=== PATIENT | male | born 1985 | race African-American/Black ===

== ENCOUNTER 2018-05-03 11:36 | Emergency (ER) | payer OTHER ==
[2018-05-03 11:52] VITALS: BP 132/84; PULSE 84; RESP 18; TEMP 98.1
--- NOTE | 2018-05-03 12:25 | ED ---
Head Injury HPI - General Chief complaint: Head Injury Stated complaint: HEAD INJURY FROM FALLING DOWN STAIRS Time Seen by Provider: 05/03/18 12:14 Source: patient, RN notes reviewed Mode of arrival: ambulatory Limitations: no limitations - History of Present Illness Initial comments: This is a 32-year-old male who presents to the emergency department with chief complaint of head injury. Patient states that this morning he slipped on laundry and fell down 3 sets of stairs, however he was able to catch himself. He states that he hit his forehead on the wall and is now experiencing posterior head pain. Patient denies loss of consciousness. He states that he did feel dizzy and her low back nausea following the episode. Denies any weakness or vision changes. Denies repeated episodes of vomiting. Patient is not on any blood thinners. Denies severe headache. - Related Data Previous Rx's Medication Instructions Recorded Aspirin 81 mg PO DAILY #30 chewable 11/20/14 Atorvastatin [Lipitor] 80 mg PO HS #30 tab 11/20/14 Carvedilol [Coreg] 3.125 mg PO AC-BID #60 tab 11/20/14 Clopidogrel [Plavix] 75 mg PO DAILY #30 tab 11/20/14 Lisinopril [Zestril] 2.5 mg PO BID #60 tab 11/20/14 Allergies/Adverse reactions: Allergies Allergy/AdvReac Type Severity Reaction Status Date / Time No Known Allergies Allergy Verified 05/03/18 11:49 Review of Systems ROS Statement: Those systems with pertinent positive or pertinent negative responses have been documented in the HPI. ROS Other: All systems not noted in ROS Statement are negative. Past Medical History Past Medical History: Diabetes Mellitus History of Any Multi-Drug Resistant Organisms: None Reported Past Surgical History: No Surgical Hx Reported Past Anesthesia/Blood Transfusion Reactions: No Reported Reaction Past Psychological History: No Psychological Hx Reported Smoking Status: Current some day smoker Past Alcohol Use History: Rare Past Drug Use History: None Reported - Past Family History Father Family Medical History: Coronary Artery Disease (CAD), Hypertension General Exam - General Exam Comments Initial Comments: General: Awake and alert, well-developed; in no apparent distress. HEENT: Head atraumatic, normocephalic. No scalp hematomas. Pupils are equal, round and reactive to light. Extraocular movements intact. Oropharynx moist without erythema or exudate. Neck: Supple. Normal ROM. No tenderness. Cardiovascular: Regular rate and rhythm. No murmurs, rubs or gallops. Chest symmetrical. Respiratory: Lungs clear to auscultation bilaterally. No wheezes, rales or rhonchi. Normal respiratory effort with no use of accessory muscles. Musculoskeletal: Normal ROM, no tenderness, strength 5/5 bilateral upper and lower extremities. Ambulating normally. Skin: Culp, warm and dry without rashes or lesions. Neurological: Alert and oriented x3. CN II-XII grossly intact. Speech is fluent and answers are appropriate. No focal neuro deficits. Romberg negative. Psychiatric: Normal mood and affect. No overt signs of depression or anxiety noted. Limitations: no limitations Course Vital Signs 05/03/18 11:49 Temperature 98.1 F Pulse Rate 84 Respiratory 18 Rate Blood Pressure 132/84 O2 Sat by Pulse 99 Oximetry Medical Decision Making - Medical Decision Making This is a 32-year-old male who presents to the emergency department with chief complaint of head injury. Patient reports slipping down 3 stairs earlier today and catching himself but hitting his forehead on the wall. He complains of posterior head pain. No severe headache, loss of consciousness, vomiting. No hematomas. Patient is neurologically intact with no focal neuro deficits. He denies blood thinner use. Discussed obtaining a computed tomography scan for further evaluation, however patient refuses at this time. Vital signs are stable and he is in no acute distress. Return parameters were discussed with patient. He is in agreement with plan and voices understanding. He will be discharged home at this time. All questions answered. Disposition Clinical Impression: Closed head injury Disposition: HOME SELF-CARE Condition: Good Instructions: Head Injury (ED), Concussion (ED) Additional Instructions: Please return to the emergency department if you experience any loss of consciousness, repeated episodes of vomiting. Please follow up with primary care provider within 1-2 days. Return to emergency department if symptoms should worsen or any concerns arise. Is patient prescribed a controlled substance at d/c from ED?: No Referrals: None,Stated [Primary Care Provider] - 1-2 days Time of Disposition: 12:24
== END 2018-05-03 12:30 | disposition home or self-care (01) ==
LOC: EC 11:36
DX: S09.90XA Unspecified injury of head, initial encounter (principal); F17.200 Nicotine dependence, unspecified, uncomplicated; Z53.29 Procedure and treatment not carried out because of patient's decision for other reasons; W10.9XXA Fall (on) (from) unspecified stairs and steps, initial encounter
CPT/HCPCS: 99283

== ENCOUNTER 2020-09-18 12:04 | Emergency (ER) | payer OTHER ==
[2020-09-18 12:17] VITALS: BP 162/94; PULSE 89; RESP 18; TEMP 98.7
[2020-09-18] MEDS ORDERED: CEPHALEXIN 500MG STARTER PACK 4 CAP BTL PO STA (12:53)
--- NOTE | 2020-09-18 12:56 | ED ---
General Adult HPI - General Chief complaint: Skin/Abscess/Foreign Body Stated complaint: Wound on big toe, Diabetic Time Seen by Provider: 09/18/20 12:46 Source: patient, RN notes reviewed, old records reviewed Mode of arrival: ambulatory Limitations: no limitations - History of Present Illness Initial comments: 35-year-old male history of diabetes peripheral neuropathy presenting for an ulcer to the right great toe which is been present for the past 2 weeks. This is previously had some drainage to it. There was some surrounding erythema. He states that the erythema has improved and drainage has dried up but the ulcer remains. Patient does not follow regularly with his primary care. He denies fever. He denies pain. He denies swelling or erythema into the foot, ankle or leg.. He states overall that the blister ulceration appears improved. - Related Data Previous Rx's Medication Instructions Recorded Aspirin 81 mg PO DAILY #30 chewable 11/20/14 Atorvastatin [Lipitor] 80 mg PO HS #30 tab 11/20/14 Clopidogrel [Plavix] 75 mg PO DAILY #30 tab 11/20/14 carvediloL [Coreg] 3.125 mg PO AC-BID #60 tab 11/20/14 lisinopriL [Zestril] 2.5 mg PO BID #60 tab 11/20/14 Cephalexin [Keflex] 500 mg PO Q6HR 10 Days #40 cap 09/18/20 Allergies Allergy/AdvReac Type Severity Reaction Status Date / Time No Known Allergies Allergy Verified 09/18/20 12:17 Review of Systems ROS Statement: Those systems with pertinent positive or pertinent negative responses have been documented in the HPI. ROS Other: All systems not noted in ROS Statement are negative. Past Medical History Past Medical History: Diabetes Mellitus, Myocardial Infarction ([place]) Additional Past Medical History / Comment(s): neuropathy History of Any Multi-Drug Resistant Organisms: None Reported Past Surgical History: No Surgical Hx Reported Additional Past Surgical History / Comment(s): laser eye surgery Past Anesthesia/Blood Transfusion Reactions: No Reported Reaction Past Psychological History: No Psychological Hx Reported Smoking Status: Never smoker Past Alcohol Use History: Rare Past Drug Use History: Marijuana - Past Family History Father Family Medical History: Coronary Artery Disease (CAD), Hypertension General Exam Limitations: no limitations General appearance: alert, in no apparent distress Head exam: Present: atraumatic, normocephalic Eye exam: Present: normal appearance, PERRL ENT exam: Present: normal exam Neck exam: Present: normal inspection. Absent: tenderness, meningismus Respiratory exam: Present: normal lung sounds bilaterally. Absent: respiratory distress, wheezes Cardiovascular Exam: Present: regular rate, normal rhythm GI/Abdominal exam: Present: soft. Absent: distended, tenderness, guarding Extremities exam: Present: other (Patient has a dry 2 cm round ulceration on the medial aspect of the right great toe. 2+ DP pulse, no surrounding erythema. No purulent drainage.). Absent: pedal edema, joint swelling Neurological exam: Present: alert, oriented X3, CN II-XII intact. Absent: motor sensory deficit Psychiatric exam: Present: normal affect, normal mood Skin exam: Present: warm, dry, intact. Absent: cyanosis, diaphoretic Course Vital Signs 09/18/20 12:15 Temperature 98.7 F Pulse Rate 89 Respiratory 18 Rate Blood Pressure 162/94 O2 Sat by Pulse 100 Oximetry Medical Decision Making - Medical Decision Making Patient will require outpatient wound management, he is given referral to the wound clinic and vascular surgery. His overall well-appearing nontoxic, the ulceration is dry, there is no swelling in the foot, no surrounding erythema, no purulent drainage. He has 2+ DP pulse good cap refill. Started on antibiotics and given outpatient referral. Disposition Clinical Impression: Diabetic ulcer of right great toe Disposition: HOME SELF-CARE Condition: Fair Instructions (If sedation given, give patient instructions): Diabetic Foot Ulcers (ED) Additional Instructions: Please contact your primary care physician regarding wound care. These return the emergency department with worsening or changing symptoms. Prescriptions: Cephalexin [Keflex] 500 mg PO Q6HR 10 Days #40 cap Is patient prescribed a controlled substance at d/c from ED?: No Referrals: Marlen Hatch MD [Primary Care Provider] - 1-2 days [facility] [NON-STAFF] - 1-2 days Manfred Waite MD [STAFF PHYSICIAN] - 1-2 days Time of Disposition: 12:54
== END 2020-09-18 13:18 | disposition home or self-care (01) ==
LOC: EC 12:04
DX: E11.621 Type 2 diabetes mellitus with foot ulcer (principal); L97.519 Non-pressure chronic ulcer of other part of right foot with unspecified severity; I25.2 Old myocardial infarction
CPT/HCPCS: 99283

== ENCOUNTER → 2020-09-24 | Outpatient (CLI) | payer OTHER ==
--- NOTE | 2020-09-24 11:00 | XR ---
EXAMINATION TYPE: XR foot complete RT DATE OF EXAM: 09/24/2020 CLINICAL HISTORY: Wound on great toe for one week. History of diabetes. TECHNIQUE: Frontal, lateral, and oblique images of the right foot are obtained. COMPARISON: None FINDINGS: There is no acute fracture/dislocation evident in the right foot. Mild to moderate narrowi ng first metatarsophalangeal joint. Flexion and varus positioning distal third through fifth toes. No suspicious bony destruction or abnormal periosteal reaction with particular attention to the first t oe. [id number] soft tissue swelling over the first toe, overlying bandage material and lucency medial distal aspect near the first proximal phalanx corresponds to soft tissue wound. IMPRESSION: As above.
[2020-09-24 11:15] LABS: Basophils # (A) 0.1 k/uL (0-0.2); Basophils % (A) 1 %; Eosinophils # (A) 0.3 k/uL (0-0.7); Eosinophils % (A) 3 %; HCT 39.6 % (39.0-53.0); HGB 13.3 gm/dL (13.0-17.5); Lymphocytes # (A) 2.7 k/uL (1.0-4.8); Lymphocytes % (A) 29 %; MCH 29.2 pg (25.0-35.0); MCHC 33.6 g/dL (31.0-37.0); MCV 86.9 fL (80.0-100.0); Mean Platelet Volume 6.8; Monocytes # (A) 0.5 k/uL (0-1.0); Monocytes % (A) 5 %; Neutrophils # (A) 5.4 k/uL (1.3-7.7); Neutrophils % (A) 60 %; Platelet Count 343 k/uL (150-450); RBC 4.56 m/uL (4.30-5.90); RDW 12.6 % (11.5-15.5); WBC 9.1 k/uL (3.8-10.6)
[2020-09-24 15:17] LABS: Erythrocyte Sedimentation Rate 48 mm/hr (0-15)
[2020-09-24 16:14] LABS: ALT 15 U/L (10-49); AST 17 U/L (14-35); Albumin/Globulin Ratio 1.43 (1.60-3.17); Alkaline Phosphatase 130 U/L (41-126); BUN/Creat Ratio 13.33 Ratio (12.00-20.00); C Reactive Protein <0.4 mg/dL (0.0-0.8); Calcium 9.6 mg/dL (8.7-10.3); Carbon Dioxide 30.5 mmol/L (21.6-31.8); Chloride 97 mmol/L (96-109); Globulin 2.8 g/dL (1.6-3.3); Glucose 318 mg/dL (70-110); Non-African American GFR(CKD) 76.8 (60.0-200.0); Potassium 4.4 mmol/L (3.5-5.5); Sodium 134 mmol/L (135-145); Total Bilirubin 0.4 mg/dL (0.2-1.2); Total Protein 6.8 g/dL (6.2-8.2)
[2020-09-24 16:52] LABS: Hemoglobin A1C 12.4 % (4.0-6.0)
== END | disposition home or self-care (01) ==
LOC: LABWHC1 09:37
PROVIDERS: ATTEND Family Medicine
DX: M25.871 Other specified joint disorders, right ankle and foot (principal); M21.271 Flexion deformity, right ankle and toes; M79.89 Other specified soft tissue disorders; E11.621 Type 2 diabetes mellitus with foot ulcer; L97.518 Non-pressure chronic ulcer of other part of right foot with other specified severity; E11.65 Type 2 diabetes mellitus with hyperglycemia; I25.10 Atherosclerotic heart disease of native coronary artery without angina pectoris; I10 Essential (primary) hypertension
CPT/HCPCS: 36415; 80053; 83036; 84134; 85025; 85652; 86140

== ENCOUNTER → 2020-10-01 | Outpatient (CLI) | payer OTHER ==
--- NOTE | 2020-10-01 15:58 | US ---
EXAMINATION TYPE: US venous doppler duplex LE RT DATE OF EXAM: 10/01/2020 3:26 PM COMPARISON: NONE CLINICAL HISTORY: E11.621 TYPE 2 DIABETES WITH FOOT ULCER. LOWER EXTREMITY VENOUS INSUFFICIENCY CLINICAL HISTORY: Loose body R knee M23.41, M23.91 Internal derangement. SIDE PERFORMED: Right 1) Color flow is present and patency is documented in the following vessels. No DVT or SVT is noted . Common Femoral Vein Deep Femoral Vein Femoral Vein Popliteal Vein Proximal Calf Veins Greater Saph Vein Upper Small Saph Vein 2) There is venous reflux noted at the following venous levels: No venous reflux
--- NOTE | 2020-10-07 10:48 | P.ARTDOP ---
Arterial Doppler LOWER EXTREMITY ARTERIAL DOPPLER: DATE OF SERVICE: 10/01/2020 Reason for study: Right great toe ulcer. Doppler waveforms: Multiphasic throughout on the right with excellent toe waveforms.. Multiphasic on the left femoral and popliteal and atypical below with adequate toe waveforms Pulse volume recording: Normal configurations. Pressure gradients: Mild gradient to the left ankle and foot. Ankle-brachial indices: Greater than 1 on the right and 0.92 on the left. Toe brachial indices: 0.9 on the right, 0.39 on the left Impression: Normal right side. The left suggests moderate infrapopliteal disease. Clinical correlation recommended. Does not correspond to symptoms.
== END | disposition home or self-care (01) ==
LOC: RADUSWWP 13:59
PROVIDERS: ATTEND Family Medicine
DX: E11.621 Type 2 diabetes mellitus with foot ulcer (principal); E11.65 Type 2 diabetes mellitus with hyperglycemia; L97.518 Non-pressure chronic ulcer of other part of right foot with other specified severity; I25.10 Atherosclerotic heart disease of native coronary artery without angina pectoris; I10 Essential (primary) hypertension
CPT/HCPCS: 93923

== ENCOUNTER → 2020-12-16 | Outpatient (CLI) | payer OTHER ==
[2020-12-16 14:33] LABS: Basophils # (A) 0.1 k/uL (0-0.2); Basophils % (A) 1 %; Eosinophils # (A) 0.3 k/uL (0-0.7); Eosinophils % (A) 3 %; HCT 38.4 % (39.0-53.0); HGB 13.9 gm/dL (13.0-17.5); Lymphocytes # (A) 2.9 k/uL (1.0-4.8); Lymphocytes % (A) 31 %; MCH 30.6 pg (25.0-35.0); MCHC 36.1 g/dL (31.0-37.0); MCV 84.7 fL (80.0-100.0); Mean Platelet Volume 6.7; Monocytes # (A) 0.5 k/uL (0-1.0); Monocytes % (A) 5 %; Neutrophils # (A) 5.3 k/uL (1.3-7.7); Neutrophils % (A) 58 %; Platelet Count 323 k/uL (150-450); RBC 4.53 m/uL (4.30-5.90); RDW 12.9 % (11.5-15.5); WBC 9.1 k/uL (3.8-10.6)
[2020-12-16 14:34] LABS: Potassium 4.7 mmol/L (3.5-5.1)
== END | disposition home or self-care (01) ==
LOC: LABPAT 13:43
PROVIDERS: ATTEND Surgery
DX: Z01.818 Encounter for other preprocedural examination (principal); I96 Gangrene, not elsewhere classified
CPT/HCPCS: 36415; 80051; 82565; 84520; 85025

== ENCOUNTER 2021-01-15 11:28 | Day surgery (SDC) | payer OTHER ==
[2021-01-12 09:51] VITALS: BMI 32.3
[~2021-01-15 11:28] MED LIST: ALPRAZolam 0.25 MG TAB PO PRN; SODIUM CHLORIDE 0.9% 1,000 ML in EMPTY BAG 1 BAG IV ONE
[2021-01-15] MEDS ORDERED: ASPIRIN 325 MG TAB ONE (11:41)
[2021-01-15 12:04] VITALS: RESP 16; TEMP 98.7
[2021-01-15 12:09] LABS: Glucose,Whole Blood 229 mg/dL (75-99)
[2021-01-15] MEDS ORDERED: INSULIN ASPART (NovoLOG) 100 UNIT/ML VIAL SQ SCH (12:30)
[2021-01-15 12:52] LABS: Calcium 9.4 mg/dL (8.4-10.2); Potassium 4.5 mmol/L (3.5-5.1)
[2021-01-15] MEDS: MIDAZOLAM 2 MG/2 ML VIAL IVP ONE ×2 (13:10→13:27)
[2021-01-15] MEDS ORDERED: fentaNYL (PF) 50 MCG/ML 2 ML AMP IVP ONE (13:10)
[2021-01-15] MEDS ORDERED: LIDOCAINE 1% INJ 10MG/ML (20 ML MDV) SQ ONE (13:11)
[2021-01-15] MEDS ORDERED: IOPAMIDOL-250 100ML BTL INTRAARTER ONE (13:38)
[2021-01-15] MEDS ORDERED: LACTATED RINGERS 1,000 ML IV SCH (14:15)
--- NOTE | 2021-01-15 14:25 | P.OP ---
Date of Procedure: 01/15/21 Preoperative Diagnosis: #1: Ischemic changes left great toe. #2: Diabetic vascular disease. Postoperative Diagnosis: #1: Ischemia great toe. #2: Diabetic vascular disease with long segment occlusion of the posterior tibial artery area. #3: Proximal high-grade stenosis left anterior tibial artery with occlusion distally. #4: High-grade stenosis distal tibial peroneal trunk. #5: Occlusion right posterior tibial artery. Procedure(s) Performed: #1: Ultrasound-guided cannulation right common femoral artery. #2: Abdominal aortogram with femoral/popliteal/tibial runoffs. #3: Cannulation of the femoral artery from the contralateral approach. #4: Selective left femoral/popliteal/tibial angiography. Implants: None. Anesthesia: regional (2 mg of Versed and 50 g of fentanyl for moderate conscious sedation purposes.) Surgeon: Jeff Caal Estimated Blood Loss (ml): 10 Urine output (ml): 0 Pathology: none sent Condition: stable Disposition: no change Indications for Procedure: Patient is a 35-year-old male with a greater than 15 year history of diabetes mellitus who presented with ischemic changes of the left great toe. Physical examination revealed femoral popliteal pulses to be intact on the left all the pedal pulses are absent. Patient is now offered angiography for further delineation of vascular anatomy with goal of eventual revascularization. Description of Procedure: Patient was brought to the cardiac cath lab manager. Both groins are still prepped and draped in usual manner. Patient did receive 2 mg of Versed and 50 g of fentanyl for moderate conscious sedation purposes. Utilizing ultrasound the right femoral artery was identified. Tissues overlying this area were localized with 1% Xylocaine. Through this anesthetized area and with the aid of ultrasound a multipurpose needle was utilized candidate the artery. Once cannulated a Softip guidewire is advanced into the artery. The needle was withdrawn and a 5-Gu[place]alan sheath was placed. Pigtail catheter and guidewire were advanced into the abdominal aorta through the sheath. The guidewire was withdrawn and the catheter positioned at the L1 1 L2 interspace. Angiography was performed. Once adequate films were obtained the catheter is pulled down the level aortic bifurcation and ileal, femoral, popliteal and tibial angiography was performed. To obtain better imaging of the tibial vessels on the left is decided to perform a selective catheterization. The catheter was brought down to the aortic bifurcation and a guidewire was advanced into the external iliac artery. The catheter was exchanged for a 5- [place]alan angled glide catheter which was eventually advanced into the superficial femoral artery. Femoral, popliteal and tibial angiography was performed utilizing hand injection technique. Once adequate films were obtained the catheter and sheath were withdrawn and pressure was held at the puncture site until all evidence of bleeding ceased. Patient tolerated the procedure well. Total fluoroscopy time 3.7 minutes and total contrast volume was 94 mL of Isovue 250. Findings: Abdominal aorta demonstrates no significant disease. Single renal arteries are identified bilaterally and are widely patent. Lumbar arteries are normally patent. Both the iliac systems bilaterally were unremarkable. Right arterial segments to be unremarkable. Right popliteal angiography demonstrates the popliteal artery to be widely patent without evidence of significant disease. Right tibial angiography demonstrates the proximal portion of the anterior tibial artery as well as the tibial peroneal trunk and the proximal portion of the peroneal artery to be unremarkable. The posterior tibial arteries occluded at its origin. Contrast volume oh further description of the tibial vessels is possible. Left femoral angiography demonstrates the common femoral, femoral and profundus femoris segments to be unremarkable. Left popliteal angiography demonstrates a normally patent artery. Left tibial angiography demonstrates the anterior tibial artery to be stenotic over a 1.5 cm distance approximately 2 cm from its origin. At the distal tibial level the artery occludes. Left tibial peroneal trunk is unremarkable. Left peroneal artery demonstrates a near total focal occlusion approximately 3 cm from its origin and distally is unremarkable. It fills collaterals to the posterior tibial and dorsalis pedis and fills the digital vessels. Left posterior tibial artery is occluded shortly after it's takeoff and fills via collaterals just proximal to the ankle mortise.
[2021-01-15] MEDS ORDERED: hydrALAZINE HCL 20 MG/ML 1 ML VIAL IVP STA (14:56)
[2021-01-15 17:56] VITALS: BP 168/92
--- NOTE | 2021-01-15 17:59 | IR ---
EXAMINATION TYPE: IR angio abdominal w runoff DATE OF EXAM: 01/15/2021 CLINICAL HISTORY: Left flank pain TECHNIQUE: Fluoroscopy. COMPARISON: None. FINDINGS: Fluoroscopic guidance was provided during procedure for performing physician. A total of 3.7 minutes of fluoroscopic time was utilized during the procedure and 211 spot images was acquired. IMPRESSION: As Above.
[2021-01-15 18:49] VITALS: PULSE 88
== END 2021-01-15 18:53 | disposition home or self-care (01) ==
LOC: CATHCVL 11:28
PROVIDERS: ATTEND Surgery
DX: E11.52 Type 2 diabetes mellitus with diabetic peripheral angiopathy with gangrene (principal); I96 Gangrene, not elsewhere classified; E11.621 Type 2 diabetes mellitus with foot ulcer; L97.529 Non-pressure chronic ulcer of other part of left foot with unspecified severity; I10 Essential (primary) hypertension; Z20.822 Contact with and (suspected) exposure to COVID-19; Z79.84 Long term (current) use of oral hypoglycemic drugs; Z98.890 Other specified postprocedural states; I25.2 Old myocardial infarction; F17.200 Nicotine dependence, unspecified, uncomplicated
CPT/HCPCS: 36247; 75625; 75716; 76937; 80048; 87635; C1769 ×2; C1894; J2250; J0360; J2001; J3010; Q9966

== ENCOUNTER → 2021-01-27 | Outpatient (CLI) | payer OTHER ==
--- NOTE | 2021-01-27 16:35 | XR ---
EXAMINATION TYPE: XR foot complete LT DATE OF EXAM: 01/27/2021 CLINICAL HISTORY: Infection in the left great toe TECHNIQUE: Frontal, lateral, and oblique images of the left foot are obtained. COMPARISON: None FINDINGS: There is bony destruction of the distal portion of the distal phalanx of the first digit (g reat toe) suggestive of a osteomyelitis. There is surrounding soft tissue prominence. No evidence of other acute fracture or dislocation. The tarsals, metatarsals and phalanges are in alignment. Prematu re atherosclerotic vascular calcification. IMPRESSION: 1. Bony destruction of the distal portion of the distal phalanx of the first digit (great toe) sugges tive of osteomyelitis. Overlying soft tissue swelling.
[2021-01-27 19:26] LABS: Basophils # (A) 0.05 X 10*3/uL (0.00-0.10); Basophils % (A) 0.5 %; Eosinophils % (A) 2.1 %; HCT 37.9 % (39.6-50.0); HGB 12.7 g/dL (13.0-17.0); Lymphocytes # (A) 2.57 X 10*3/uL (0.90-5.00); Lymphocytes % (A) 27.1 %; MCH 28.9 pg (27.0-32.0); MCHC 33.5 g/dL (32.0-37.0); MCV 86.1 fL (80.0-97.0); Mean Platelet Volume 9.5 fL (9.5-12.2); Monocytes # (A) 0.56 X 10*3/uL (0.20-1.00); Monocytes % (A) 5.9 %; Neutrophils # (A) 6.06 X 10*3/uL (1.80-7.70); Neutrophils % (A) 64.1 %; Platelet Count 360 X 10*3/uL (140-440); RDW 12.4 % (11.5-14.5); WBC 9.47 X 10*3/uL (4.50-10.00)
[2021-01-27 20:39] LABS: Erythrocyte Sedimentation Rate 35 mm/Hr (0-15)
[2021-01-27 22:14] LABS: Hemoglobin A1C 8.4 % (4.0-6.0)
[2021-01-28 00:22] LABS: ALT 13 U/L (10-49); AST 19 U/L (14-35); African American GFR (CKD) 58.4 (60.0-200.0); Albumin/Globulin Ratio 1.46 (1.60-3.17); Alkaline Phosphatase 115 U/L (41-126); BUN/Creat Ratio 14.12 Ratio (12.00-20.00); C Reactive Protein <0.4 mg/dL (0.0-0.8); Calcium 9.2 mg/dL (8.7-10.3); Carbon Dioxide 26.3 mmol/L (21.6-31.8); Chloride 102 mmol/L (96-109); Globulin 2.8 g/dL (1.6-3.3); Glucose 269 mg/dL (70-110); Non-African American GFR(CKD) 50.4 (60.0-200.0); Potassium 4.8 mmol/L (3.5-5.5); Sodium 137 mmol/L (135-145); Total Bilirubin 0.4 mg/dL (0.3-1.2); Total Protein 6.9 g/dL (6.2-8.2)
== END | disposition home or self-care (01) ==
LOC: LABWHC1 11:34
PROVIDERS: ATTEND Family Medicine
DX: E11.65 Type 2 diabetes mellitus with hyperglycemia (principal); E11.621 Type 2 diabetes mellitus with foot ulcer; L97.523 Non-pressure chronic ulcer of other part of left foot with necrosis of muscle; M21.42 Flat foot [pes planus] (acquired), left foot; M21.6X9 Other acquired deformities of unspecified foot; E11.40 Type 2 diabetes mellitus with diabetic neuropathy, unspecified; M76.829 Posterior tibial tendinitis, unspecified leg; I25.10 Atherosclerotic heart disease of native coronary artery without angina pectoris; I73.9 Peripheral vascular disease, unspecified; I10 Essential (primary) hypertension; L97.512 Non-pressure chronic ulcer of other part of right foot with fat layer exposed
CPT/HCPCS: 36415; 80053; 83036; 85025; 85652; 86140

== ENCOUNTER 2021-02-25 07:12 | Inpatient (IN) | payer OTHER ==
[2021-02-25] MEDS ORDERED: SODIUM CHLORIDE 0.9% 1,000 ML in EMPTY BAG 1 BAG IV ONE (07:17)
[2021-02-25] MEDS ORDERED: HEPARIN SODIUM,PORCINE 10,000 UNIT in SODIUM CHLORIDE 0.9% 1,000 ML IRRIGATION PRN (07:17)
[2021-02-25] MEDS ORDERED: ASPIRIN 325 MG TAB PO PRN (07:17)
[2021-02-25] MEDS ORDERED: ZOLPIDEM 5 MG TAB PO PRN (07:17)
[2021-02-25] MEDS ORDERED: HEPARIN SODIUM,PORCINE 2,500 UNIT in SODIUM CHLORIDE 0.9% 250 ML IRRIGATION PRN (07:17)
[2021-02-25] MEDS ORDERED: ALPRAZolam 0.25 MG TAB PO PRN (07:17)
[2021-02-25] MEDS ORDERED: SODIUM CHLORIDE 0.9% 1,000 ML IV ONE (07:45)
[2021-02-25 07:51] LABS: Glucose,Whole Blood 188 mg/dL (75-99)
[2021-02-25] MEDS ORDERED: LIDOCAINE 1% INJ 10MG/ML (20 ML MDV) ONE (10:15)
[2021-02-25] MEDS ORDERED: IV FLUID CONTINUATION 700 ML IV ONE (10:20)
[2021-02-25] MEDS ORDERED: fentaNYL (PF) 50 MCG/ML 2 ML AMP ONE (10:46)
[2021-02-25] MEDS: fentaNYL (PF) 50 MCG/ML 2 ML AMP IV ONE ×2 (10:50→11:58)
[2021-02-25] MEDS ORDERED: MIDAZOLAM 2 MG/2 ML VIAL IV ONE (10:50)
[2021-02-25] MEDS ORDERED: LIDOCAINE 1% INJ 10MG/ML (20 ML MDV) SQ ONE (10:52)
[2021-02-25] MEDS: HEPARIN SODIUM 1,000 UN/ML (10ML VL) IV ONE ×2 (11:49→12:49)
[2021-02-25] MEDS ORDERED: ALTEPLASE 2 MG VIAL (CATHFLO) IV STA (12:26)
[2021-02-25] MEDS: ALTEPLASE 10 MG in SODIUM CHLORIDE 0.9% 100 ML IA ONE ×2 (13:19→23:35)
[2021-02-25] MEDS: HEPARIN SOD,PORK IN 0.45% NACL 25,000 UNIT in 0.45% NACL 1 250ML.BAG IV SCH (13:19)
[2021-02-25] MEDS ORDERED: IOPAMIDOL-250 100ML BTL INTRAARTER ONE (13:20)
[2021-02-25 13:48] LABS: Glucose,Whole Blood 125 mg/dL (75-99)
--- NOTE | 2021-02-25 14:00 | IR ---
EXAMINATION TYPE: IR sailboat captain tibioperoneal branchs DATE OF EXAM: 02/25/2021 COMPARISON: NONE HISTORY: Fluoroscopy time. Fluoroscopy was provided to the referring clinician.
[2021-02-25] MEDS ORDERED: IV FLUID CONTINUATION 1,000 ML IV ONE (15:25)
[2021-02-25] MEDS ORDERED: IOPAMIDOL-250 50ML BTL INTRAARTER ONE (15:47)
[2021-02-25 16:20] LABS: Glucose,Whole Blood 131 mg/dL (75-99)
--- NOTE | 2021-02-25 16:29 | IR ---
Fluoroscopy HISTORY: thrombo lysis 0.3 minutes fluoroscopy time supplied to the referring clinician. 40 intraoperative C-arm images doc ument the procedure. See dictated report from vascular surgery.
[2021-02-25] MEDS: SODIUM CHLORIDE 0.9% 1,000 ML IV SCH (16:53)
--- NOTE | 2021-02-25 17:10 | P.OP ---
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 Procedure(s) Performed: #1: Ultrasound-guided cannulation right common femoral artery. #2: Selective left lower extremity angiography. #3: Atherectomy and balloon angioplasty left anterior tibial artery. #4: Placement of thrombolytic catheter left tibioperoneal trunk/popliteal artery with initiation of TPA thrombolysis. Implants: None. Anesthesia: local (With moderate conscious sedation utilizing fentanyl and Versed with a total conscious sedation time of 1 hour 17 minutes) Surgeon: Jeff Caal Estimated Blood Loss (ml): 10 Pathology: none sent Condition: stable Disposition: ICU Indications for Procedure: Patient is a 35-year-old male with long-standing history of diabetes mellitus who had presented with a gangrenous changes of the left great toe. Physical examination revealed femoral popliteal pulses be intact on the left lumbar DP an d PT pulses are absent. Patient had undergone diagnostic angiography with the diagnosis of severe tibial artery occlusive disease. Because of his gangrenous changes in the tibial artery occlusive disease was felt appropriate the patient be offered percutaneous intervention with atherectomy. The procedure, risk and benefits were discussed and patient wished to proceed. Description of Procedure: Patient brought to the special procedure suite. Both groins were sterilely prepped and draped in usual manner. Patient did receive 50 g of fentanyl and 2 mg of Versed for moderate conscious sedation purposes and did receive additional fentanyl through the time of the case. 1% Xylocaine was utilized for local anesthesia tissues overlying the right common femoral artery. Utilizing ultrasound a multipurpose needle was utilized cannulate the artery. Once cannulated Softip guidewire was advanced into the artery. The needle was withdrawn and a 6-German sheath was placed. Pigtail catheter and guidewire were then advanced and utilized to select the left common iliac artery. The guidewire was advanced down the iliac into the superficial femoral artery. The catheter was exchanged for an angled glide catheter. Eventually a stiff wire was advanced through the catheter. The catheter and 6- German sheath were exchanged for a Up & Over 6-German catheter. A catheter was then advanced into the popliteal artery. Popliteal and tibial angiography was performed. This demonstrated the aforementioned severe tibial artery occlusive disease. Guidewire and catheter combination were utilized to select the anterior tibial artery. Eventually a 0.014 guidewire was advanced down the anterior tibial artery onto the dorsum of the foot. A 1.25 mm diamondback bur was advanced over the guidewire. The patient was systemically heparinized with 5000 units of heparin. Atherectomy was then performed of the anterior tibial artery. This was followed by balloon dilation of the mid and distal portion of the anterior tibial artery with a 2 mm balloon and in the proximal portion with a 3 mm balloon. Completion angiogram demonstrated what appeared to be spasmodic change of the anterior tibial artery. 2 separate doses of 100 g of nitroglycerin was instilled intra-arterially to break the spasm. Additionally thrombotic changes of the tibial peroneal trunk was noted. 4 mg of TPA was instilled into the tibial peroneal trunk and eventually a infusion catheter was left in the popliteal artery and proximal portion of the tibial peroneal trunk with the intent of into new TPA infusion of 1 mg TPA per hour and 500 units of heparin per hour and repeat imaging later in the afternoon. The The sheath was secured to the skin with suture proper dressings were applied. Patient tolerated the procedure well. Total contrast volume 100 mg of Isovue 250. Total conscious sedation time 1 hour 17 minutes.
--- NOTE | 2021-02-25 17:15 | P.OP ---
Date of Procedure: 02/25/21 Preoperative Diagnosis: Thrombosis left anterior tibial artery and tibial peroneal trunk. Status post atherectomy left anterior tibial artery. Postoperative Diagnosis: Same plus significant but incomplete thrombo-lysis. Procedure(s) Performed: Angiogram via existing catheter. Implants: None. Anesthesia: none Surgeon: Jeff Caal Estimated Blood Loss (ml): 0 Urine output (ml): 0 Pathology: none sent Condition: stable Disposition: ICU Indications for Procedure: Patient earlier today underwent a atherectomy of the anterior tibial artery with alone dilation. Patient did experience thrombosis of the tibial peroneal harsh nk/peroneal artery and of the anterior tibial artery. TPA infusion catheter had been placed in the patient had undergone a few hours of TPA thrombo-lysis. Patient is brought back to the special suite for repeat imaging. Patient did indicate that his foot felt significantly better at this time even compared to preprocedure. Description of Procedure: Patient brought to the special procedure suite. Right groin sterilely prepped and draped in usual manner. 2 separate injections of 5 mL of contrast through the infusion catheter was performed. This demonstrated significant improvement in the thrombotic burden although some thrombus yet remained. As such the TPA catheter was left in place with the intent of continue TPA thrombo-lysis over night with repeat imaging on February 26. Patient tolerated the procedure well and was returned to the ICU in satisfactory and stable condition. Total fluoroscopy time: 30 seconds. Total contrast volume utilized: 10 ML's of Isovue 250. Total conscious sedation time: 0.0 minutes.
[2021-02-25 21:30] LABS: Glucose,Whole Blood 141 mg/dL (75-99)
[2021-02-25] MEDS: INSULIN ASPART (NovoLOG) 100 UNIT/ML VIAL SQ SCH (21:54)
[2021-02-26 07:58] LABS: Glucose,Whole Blood 146 mg/dL (75-99)
[2021-02-26] MEDS: INSULIN ASPART (NovoLOG) 100 UNIT/ML VIAL SQ SCH ×4 (08:27→20:47)
[2021-02-26] MEDS ORDERED: ALTEPLASE 10 MG in SODIUM CHLORIDE 0.9% 100 ML IA ONE (08:44)
[2021-02-26 09:16] LABS: Basophils # (A) 0.1 k/uL (0-0.2); Basophils % (A) 1 %; Eosinophils # (A) 0.3 k/uL (0-0.7); Eosinophils % (A) 3 %; HCT 38.5 % (39.0-53.0); HGB 12.9 gm/dL (13.0-17.5); Lymphocytes # (A) 1.8 k/uL (1.0-4.8); Lymphocytes % (A) 19 %; MCH 29.2 pg (25.0-35.0); MCHC 33.4 g/dL (31.0-37.0); MCV 87.5 fL (80.0-100.0); Mean Platelet Volume 6.7; Monocytes # (A) 0.5 k/uL (0-1.0); Monocytes % (A) 5 %; Neutrophils # (A) 6.7 k/uL (1.3-7.7); Neutrophils % (A) 71 %; Platelet Count 291 k/uL (150-450); RDW 13.6 % (11.5-15.5); WBC 9.5 k/uL (3.8-10.6)
[2021-02-26 09:24] LABS: African American GFR (CKD) >90 (>60 ml/min/1.73 sqM); Anion Gap 3 mmol/L; Blood Urea Nitrogen 12 mg/dL (9-20); Calcium 8.8 mg/dL (8.4-10.2); Carbon Dioxide 32 mmol/L (22-30); Chloride 102 mmol/L (98-107); Glucose 148 mg/dL (74-99); Non-African American GFR(CKD) 79 (>60 ml/min/1.73 sqM); Potassium 4.5 mmol/L (3.5-5.1); Sodium 137 mmol/L (137-145)
--- NOTE | 2021-02-26 09:34 | P.CNPUL ---
History of Present Illness Consult date: 02/26/21 History of present illness: This is a 35-year-old male patient who underwent a atherectomy of the anterior tibial artery. The patient was having thrombosis of the left anterior tibial artery and tibial peroneal trunk on the left. The patient is known to have diabetes mellitus, coronary artery disease and hypertension. The patient was having also ischemic changes and left great toe and this was attributed to a significant tibial artery occlusion. The patient underwent atherectomy. The patient also had a TPA infusion catheter placed which is currently running at this point in time in the intensive care unit. This is running at 1 mg an hour. He is also on heparin. The catheter is present in his right groin and there is no hematoma formation or any signs of bleeding. The plan is to take him back to the vascular lab to undergo another angiogram today. No signs of any bleeding. Hemoglobin currently is at 12.9. He is hemodynamically stable. Pulse patient has improved in the left lower extremity. The patient has dorsalis pedis pulses obtained by Doppler signal. The feet are warm bilaterally. The toe wound is noninfected at this point in time. Review of Systems Constitutional: Reports as per HPI Eyes: bilateral as per HPI, bilateral blurred vision, denies bulging eye, denies decreased vision, denies diplopia, denies discharge, denies dry eye, denies irritation, denies itching, denies pain, denies photophobia, denies loss of peripheral vision, denies loss of vision, denies tunnel vision/blind spots Ears: deny: decreased hearing, ear discharge, earache, tinnitus Ears, nose, mouth and throat: Reports as per HPI Breasts: absent: as per HPI, gynecomastia Cardiovascular: Reports claudication Respiratory: Reports as per HPI Gastrointestinal: Reports as per HPI Genitourinary: Reports as per HPI Musculoskeletal: Reports as per HPI Musculoskeletal: absent: ankle pain, ankle stiffness, ankle swelling Integumentary: Reports wounds Neurological: Reports as per HPI (Motor neuropathy related to diabetes mellitus in the lower extremities), Reports numbness, Reports paresthesias, Reports weakness Psychiatric: Reports as per HPI Endocrine: Reports as per HPI Hematologic/Lymphatic: Reports as per HPI Allergic/Immunologic: Reports as per HPI Past Medical History Past Medical History: Coronary Artery Disease (CAD), Diabetes Mellitus, Hyperlipidemia, Hypertension, Myocardial Infarction (DC), Skin Disorder, Vascular Disorder Additional Past Medical History / Comment(s): neuropathy melvin legs, eczema, wound left great toe(on antibiotics currently)-goes to [facility] wound center, poor circulation melvin legs, eczema, Last Myocardial Infarction Date:: 2014 History of Any Multi-Drug Resistant Organisms: MRSA Date of last positivie culture/infection: 01/21/21 MDRO Source:: toe Past Surgical History: Heart Catheterization Additional Past Surgical History / Comment(s): laser eye surgery x 2, oral surgery, angiogram Past Anesthesia/Blood Transfusion Reactions: Motion Sickness Smoking Status: Never smoker - Past Family History Mother Family Medical History: No Reported History Father Family Medical History: Coronary Artery Disease (CAD), Hypertension Medications and Allergies Home Medications Medication Instructions Recorded Confirmed Type Clopidogrel [Plavix] 75 mg PO DAILY #30 tab 11/20/14 02/25/21 Rx Glimepiride [Amaryl] 1 mg PO DAILY 01/12/21 02/25/21 History metFORMIN HCL 1,000 mg PO BID 01/12/21 02/25/21 History Aspirin 81 mg PO DAILY #0 chewable 01/15/21 02/25/21 Rx Atorvastatin [Lipitor] 5 mg PO HS 01/15/21 02/25/21 History Losartan Potassium 50 mg PO DAILY 02/25/21 02/25/21 History Sulfamethox-Tmp 400-80Mg [Bactrim 400 mg PO BID 02/25/21 02/25/21 History SS 400-80 mg] Allergies Allergy/AdvReac Type Severity Reaction Status Date / Time No Known Allergies Allergy Verified 02/24/21 09:24 Physical Exam Vitals: Vital Signs Temp Pulse Resp BP Pulse Ox 02/26/21 09:00 98.6 F 87 13 155/100 100 02/26/21 08:30 85 14 155/100 99 02/26/21 08:00 85 0 L 179/112 97 02/26/21 07:30 76 7 L 172/114 98 02/26/21 07:00 78 14 164/111 98 02/26/21 06:30 84 16 164/111 98 02/26/21 06:00 78 12 147/95 98 02/26/21 05:30 96 26 H 147/95 99 02/26/21 05:00 76 0 L 168/103 98 02/26/21 04:30 82 8 L 168/103 97 06/18/21 04:00 97.4 F L 82 14 160/104 98 02/26/21 03:30 80 12 160/104 98 02/26/21 03:00 82 0 L 159/121 99 02/26/21 02:30 79 6 L 159/121 99 02/26/21 02:00 98 11 L 158/101 99 02/26/21 01:30 82 11 L 158/101 98 02/26/21 01:00 79 6 L 159/87 99 02/26/21 00:30 80 14 159/87 99 02/26/21 00:00 98.4 F 85 14 148/84 98 02/25/21 23:30 80 10 L 148/84 100 02/25/21 23:00 80 17 153/94 99 02/25/21 22:30 75 6 L 153/94 98 02/25/21 22:09 72 5 L 143/97 99 02/25/21 22:00 85 15 153/94 99 02/25/21 21:30 75 13 98 02/25/21 21:00 76 14 98 02/25/21 20:30 79 14 97 02/25/21 20:00 98.1 F 79 13 98 02/25/21 19:30 78 12 96 02/25/21 19:00 73 18 143/97 95 02/25/21 18:30 81 16 97 02/25/21 18:00 86 16 146/95 98 02/25/21 17:30 83 16 150/88 99 02/25/21 17:00 75 26 H 131/86 99 02/25/21 16:30 76 16 149/100 98 02/25/21 15:00 79 16 144/83 98 02/25/21 14:30 80 14 138/97 99 02/25/21 14:10 98.1 F 73 16 138/97 97 Intake and Output 02/25/21 02/26/21 02/26/21 22:59 06:59 14:59 Intake Total 825 280 Output Total 750 1000 Balance 75 -720 Intake: IV 180 180 ns 80 180 Intake, IV Titration 155 Amount Alteplase 10 mg In Sodium 50 Chloride 0.9% 100 ml @ 1 MG/HR 10 mls/hr IA .Q10H ONE Rx#:[id number] Heparin Sod,Pork in 0.45% 25 NaCl 25,000 unit In 0.45 % NaCl 1 250ml.bag @ 5 mls/hr IV .Q24H MANUEL Rx#: [id number] Sodium Chloride 0.9% 1, 80 000 ml @ 20 mls/hr IV . Q24H MANUEL Rx#:[id number] Oral 490 100 Output: Urine 750 1000 Other: Voiding Method Urinal Urinal # Voids 0 0 Gen. appearance, comfortable likely distress Head exam was generally normal. There was no scleral icterus or corneal arcus. Mucous membranes were moist. Neck was supple and without jugular venous distension, thyromegaly, or carotid bruits. Carotids were easily palpable bilaterally. There was no adenopathy. Lungs were clear to auscultation and percussion, and with normal diaphragmatic excursion. No wheezes or rales were noted. Cardiac exam revealed the PMI to be normally situated and sized. The rhythm was regular and no extrasystoles were noted during several minutes of auscultation. The first and second heart sounds were normal and physiologic splitting of the second heart sound was noted. There were no murmurs, rubs, clicks, or gallops. Abdominal exam revealed normal bowel sounds. The abdomen was soft, non-tender, and without masses, organomegaly, or appreciable enlargement of the abdominal aorta. Extremities revealed diminished pulses in lower extremities bilaterally. Doppler significant be obtained in the left foot involving dorsalis pedis and posterior tibialis. The left great toe was inspected. There is no active drainage. There is no necrosis or gangrenous formation. The rest of the wounds are essentially healed lower extremities bilaterally. There is evidence of peripheral neuropathy and evidence of chronic trauma in the feet bilaterally with some Charcot joint development. No open wounds. No active drainage at this point in time. No synovitis. Neurologically, the patient is awake and alert and the patient does not have any focal neurological deficit. Cranial nerves are essentially intact. Results - Laboratory Findings CBC and BMP: 02/26/21 08:47 02/26/21 08:47 ABG WBC 9.5 k/uL (3.8-10.6) 02/26/21 08:47 RBC 4.40 m/uL (4.30-5.90) 02/26/21 08:47 Hgb 12.9 gm/dL (13.0-17.5) L 02/26/21 08:47 Hct 38.5 % (39.0-53.0) L 02/26/21 08:47 MCV 87.5 fL (80.0-100.0) 02/26/21 08:47 MCH 29.2 pg (25.0-35.0) 02/26/21 08:47 MCHC 33.4 g/dL (31.0-37.0) 02/26/21 08:47 RDW 13.6 % (11.5-15.5) 02/26/21 08:47 Plt Count 291 k/uL (150-450) 02/26/21 08:47 MPV 6.7 02/26/21 08:47 Neutrophils % 71 % 02/26/21 08:47 Lymphocytes % 19 % 02/26/21 08:47 Monocytes % 5 % 02/26/21 08:47 Eosinophils % 3 % 02/26/21 08:47 Basophils % 1 % 02/26/21 08:47 Neutrophils # 6.7 k/uL (1.3-7.7) 02/26/21 08:47 Lymphocytes # 1.8 k/uL (1.0-4.8) 02/26/21 08:47 Monocytes # 0.5 k/uL (0-1.0) 02/26/21 08:47 Eosinophils # 0.3 k/uL (0-0.7) 02/26/21 08:47 Basophils # 0.1 k/uL (0-0.2) 02/26/21 08:47 Fibrinogen 408 mg/dL (200-500) 02/26/21 05:24 POC Glucose (mg/dL) 146 mg/dL (75-99) H 02/26/21 07:57 POC [email or web address] 02/26/21 07:57 Coronavirus (PCR) Not Detected (Not Detectd) 02/25/21 07:40 Abnormal lab findings: Abnormal Labs 02/25/21 02/25/21 02/25/21 07:42 13:46 16:19 Hgb Hct POC Glucose (mg/dL) 188 H 125 H 131 H 02/25/21 02/26/21 02/26/21 21:29 07:57 08:47 Hgb 12.9 L Hct 38.5 L POC Glucose (mg/dL) 141 H 146 H Assessment and Plan Plan: 1 severe peripheral vascular disease with thrombosis of the left anterior tibial artery and tibioperoneal trunk on the left with secondary chronic vascular c hanges in lower extremities and the nonhealing left toe ulcer. Patient is post atherectomy and currently the patient is on TPA infusion. Adequate pulses in the lower extremities obtained by Doppler signal, patient is postop day #1 2 chronic wounds of lower extremity active wound is the one in his left great toe no drainage or purulent material this point in time. 3 diabetes mellitus 4 hypertension 5 hyperlipidemia 6 history of marijuana smoking 7 peripheral neuropathy involving lower extremities bilaterally. 8 CAD with previous history of myocardial infarction , moderate triple-vessel coronary artery disease based on a cardiac catheterization that was done back in 2014. 9 diabetic retinopathy post laser eye surgery. 10 diabetic wound also involving the toe on the left, and the patient was treated for an MRSA wound infection and the patient was completing a course of Bactrim that was given to her in back in January 2021. Based on the x-rays, there could have been also a component of osteomyelitis involving the left great toe. Plan In is to continue to TPA and heparin for now Watch for any signs of bleeding Monitor hemoglobin Repeat angiogram Resume Bactrim for chronic MRSA left toe infection/osteomyelitis Monitor the blood sugar and resume oral hypoglycemic medication in addition to sliding scalecoverage Monitor hemodynamics We'll continue to follow. Keep the patient ICU for now. We'll coordinate with vascular surgery.
[2021-02-26] MEDS: SULFAMETHOX-TMP 800-160MG 1 EACH TAB PO SCH ×2 (10:08→21:07)
--- NOTE | 2021-02-26 10:21 | CDI ---
Documentation Clarification Form Date: 02/26/2021 09:30:02 AM From: Conchita Torres RN, CCDS Admit Date: 02/25/2021 01:30:00 PM Patient Name: Zac Hook Visit Number: [id number] Discharge Date: ATTENTION: The Clinical Documentation Specialists (CDI) and [facility] Coding Staff appreciate your assistance in clarifying documentation. Please respond to the clarification below the line at the bottom and electronically sign. The CDI & [facility] Coding staff will review the response and follow-up if needed. Please note: Queries are made part of the Legal Health Record. If you have any questions, please contact the author of this message via ITS. Dr. Jeff Caal 02/25 Thrombosis left anterior tibial artery and tibial trunk is documented in the operative note and patient is post artherectomy left anterior tibial artery on 02/25/21. Additional clarification is requested regarding the relationship, if any, that exists between the diagnosis and the procedure. 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 Post-Operative Diagnosis: Same, plus thrombosis left tibial peroneal trunk. Procedure performed: Ultrasound-guided cannulation right common femoral artery. Selective left lower extremity angiography. A Atherectomy and balloon angioplasty left anterior tibial artery. Placement of thrombolytic catheter left tibioperoneal trunk/popliteal artery with initiation of TPA thrombolysis History/Risk Factors: Diabetes Mellitus, Diabetic tibial artery occlusive disease, Hypertension, Coronary artery disease Clinical Indicators: 35-year-old male with diabetic tibial artery occlusive disease left lower extremity with resulting gangrene left great toe, present on 02/25 for elective Atherectomy and balloon angioplasty left anterior tibial artery. Per operative note, completion angiogram demonstrate what appeared to be spasmodic change of the anterior tibial artery. Additionally thrombotic changes of the tibial peroneal trunk was noted.. Treatment: Nitroglycerin 100 ug IV x2 Infusion catheter TPA infusion 1 mg per hr. Heparin 500 units per hour Monitor hemoglobin, watch for any signs of bleeding What relationship, if any, exists between the diagnosis of Thrombosis left anterior tibial artery and tibial peroneal trunk and the Atherectomy left anterior tibial artery. [ ] Thrombosis is a complication of surgical procedure, unexpected [ ] Thrombosis is an expected outcome of the surgical procedure [ ] Thrombosis is related to patients co-morbid condition(s) of severe diabetic tibia artery occlusive disease left lower extremity & not a complication of the procedure [ ] Other please specify ____ [ ] Unable to determine (Template Last Revised: November 2020) MTDD
--- NOTE | 2021-02-26 11:15 | P.PN ---
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 Presented yesterday for an elective arthrectomy and balloon angioplasty of the left anterior tibial artery for diabetic tibial artery occlusive disease of the left lower extremity and gangrene left great toe, however the patient demonstrated thrombolic changes at the tibial artery and peroneal trunk subsequently TPA was started. He states he has pain down the left lower extremity however it is improved prior to his procedure. He denies any acute changes through the night. He has a catheter in the right groin that is clean dry and intact with TPA infusing. Labs are pending. Last fibrinogen was 408. He denies any shortness of breath, chest pain, or abdominal pain. No signs of bleeding. Objective - Vital Signs Vital signs: Vital Signs Temp 97.4 F L 02/26/21 04:00 Pulse 78 02/26/21 07:00 Resp 14 02/26/21 07:00 BP 164/111 02/26/21 07:00 Pulse Ox 98 02/26/21 07:00 Intake & Output 02/25/21 02/26/21 02/26/21 18:59 06:59 18:59 Intake Total 1069 625 Output Total 750 1400 Balance 319 -775 Weight 100.1 kg Intake: IV 694 240 ns 40 240 Intake, IV Titration 135 35 Amount Alteplase 10 mg In Sodium 50 10 Chloride 0.9% 100 ml @ 1 MG/HR 10 mls/hr IA .Q10H ONE Rx#:[id number] Heparin Sod,Pork in 0.45% 25 5 NaCl 25,000 unit In 0.45 % NaCl 1 250ml.bag @ 5 mls/hr IV .Q24H MANUEL Rx#: [id number] Sodium Chloride 0.9% 1, 60 20 000 ml @ 20 mls/hr IV . Q24H MANUEL Rx#:[id number] Oral 240 350 Output: Urine 750 1400 Other: Voiding Method Urinal Urinal # Voids 0 - Exam General appearance: The patient is alert, oriented, appears in no acute distress. HET: Head is normocephalic and atraumatic. Neck: Supple without lymphadenopathy. Trachea midline. Heart: S1 S2. Regular rate and rhythm. Lungs: Clear to auscultation. Abdomen: Soft, nontender, nondistended. Extremities: Normal skin color and turgor. No edema bilaterally. Right groin with catheter in place with no signs of bleeding, palpable right dorsalis pedis, warm to the touch. Left lower extremity warm to the touch, positive femoral, popliteal, posterior tibialis and dorsalis pedis Doppler signal. Good capillary refill. Great toe with dressing in place clean dry and intact. He does have some tenderness along the left lower calf with palpation. Neurological: No focal deficits. Alert and oriented 3. - Labs CBC & Chem 7: 02/26/21 08:47 02/26/21 08:47 Labs: Abnormal Lab Results - Last 24 Hours (Table) 02/25/21 02/25/21 02/25/21 Range/Units 13:46 16:19 21:29 POC Glucose (mg/dL) 125 H 131 H 141 H (75-99) mg/dL 02/26/21 Range/Units 07:57 POC Glucose (mg/dL) 146 H (75-99) mg/dL Assessment and Plan Assessment: 1. Postop day #1 atherectomy left anterior tibial artery 2. Status post angiography of the left lower extremity with placement of thrombolytic catheter and initiation of TPA thrombolysis 3. 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 Diabetes mellitus Plan: 1. Keep nothing by mouth 2. Patient is scheduled for repeat angiography today for reevaluation the left lower extremity 3. CBC, BMP ordered The impression and plan of care has been dictated as directed. Dr. Mccann I performed a history and examination of this patient, discussed the same with the dictator. I agree with the dictator's note ,documented as a scribe. Any additional findings or plans will be noted.
[2021-02-26 11:18] LABS: Glucose,Whole Blood 176 mg/dL (75-99)
[2021-02-26] MEDS ORDERED: HEPARIN SODIUM 1,000 UN/ML (10ML VL) ONE (13:04)
[2021-02-26] MEDS ORDERED: fentaNYL (PF) 50 MCG/ML 2 ML AMP IV ONE (13:14)
[2021-02-26] MEDS ORDERED: MIDAZOLAM 2 MG/2 ML VIAL IV ONE (13:14)
[2021-02-26] MEDS ORDERED: fentaNYL (PF) 50 MCG/ML 2 ML AMP ONE (13:15)
[2021-02-26] MEDS ORDERED: LIDOCAINE 1% INJ 10MG/ML (20 ML MDV) ONE (13:19)
[2021-02-26] MEDS ORDERED: IV FLUID CONTINUATION 1,000 ML IV ONE (13:20)
[2021-02-26] MEDS: fentaNYL (PF) 50 MCG/ML 2 ML AMP IV ONE (13:25)
[2021-02-26] MEDS ORDERED: LIDOCAINE 1% INJ 10MG/ML (20 ML MDV) SQ ONE (13:25)
--- NOTE | 2021-02-26 13:55 | P.OP ---
Date of Procedure: 02/26/21 Description of Procedure: Preoperative diagnosis: Anterior tibial and tibial peroneal trunk thrombosis Postoperative diagnosis: Same, resolution of anterior tibial and TP trunk thrombosis, posterior tibial occlusion with reconstitution at the ankle Procedure: [#1 angiogram via existing catheter #2 percutaneous closure device deployment #3 moderate conscious sedation x19 minutes #4 right iliofemoral angiogram] Surgeon: Yadira Mccann D.O. EBL: [Less than 10 mL] IV fluids: [See records Urine output: [Not measured] Drains: [None] Complications: [None immediately apparent] Condition: [Stable to recovery] Operative indication and findings: [Patient is a 35-year-old male with diabetes and previously identified tibial artery occlusive disease along with ischemic changes to his great toe. Given these findings he had been recommended to undergo Atherectomy at the conclusion of the procedure there was evidence of distant with thrombosis of the anterior tibial and tibial peroneal trunk. At that time a thrombolytic catheter was placed and then recheck was performed initially. There was still some levels of thrombosis and he was felt to fit from further thrombolysis. He comes back today for further imaging] Procedure in detail: Patient was taken to the special suite and placed in supine position. The right groin and previously placed catheter were prepped and draped in usual sterile fashion. A preprocedure timeout was performed, all parties are in agreement. The guidewire was placed and the thrombotic catheter was removed. An angiogram was performed through the existing sheath revealing a patent P1, P2 and P3 proximal artery. The anterior tibial artery is patent at its takeoff and through the mid leg. The tibial peroneal trunk and peroneal arteries are patent. There is flush occlusion of the posterior tibial artery. At the level of the ankle there is some areas of haziness the anterior tibial artery with no obvious flow limitation. The peroneal artery continues down to the ankle and reconstitutes the posterior tibial at this level. Given these findings it was felt the procedure was complete. Wire and catheter were removed. A right iliofemoral angiogram was performed to evaluate for cutaneous closure. It found to be adequate. A short 6-Iraqi sheath was then placed and a vascular closure device was deployed. Hemostasis found to be adequate. A dressing was placed for the patient's transferred back to his room in stable condition having tolerated the procedure well.
--- NOTE | 2021-02-26 14:01 | IR ---
EXAMINATION TYPE: IR angio extremity LT DATE OF EXAM: 02/26/2021 COMPARISON: NONE HISTORY: Fluoroscopy time. Fluoroscopy was provided to the referring clinician.
[2021-02-26 18:15] LABS: Glucose,Whole Blood 163 mg/dL (75-99)
[2021-02-26] MEDS: HEPARIN SOD,PORK IN 0.45% NACL 25,000 UNIT in 0.45% NACL 1 250ML.BAG IV SCH (18:15)
[2021-02-26 18:31] VITALS: PULSE 85
[2021-02-26 18:40] VITALS: RESP 16
[2021-02-26 20:06] LABS: Glucose,Whole Blood 195 mg/dL (75-99)
[2021-02-26] MEDS: SODIUM CHLORIDE 0.9% 1,000 ML IV SCH (20:48)
[2021-02-27 05:50] LABS: Glucose,Whole Blood 165 mg/dL (75-99)
[2021-02-27] MEDS: INSULIN ASPART (NovoLOG) 100 UNIT/ML VIAL SQ SCH (06:10)
[2021-02-27 08:24] VITALS: BP 142/87; TEMP 98.1
[2021-02-27] MEDS: SULFAMETHOX-TMP 800-160MG 1 EACH TAB PO SCH (09:00)
--- NOTE | 2021-02-27 09:26 | P.DS ---
Providers Date of admission: 02/25/21 13:30 Attending physician: Jeff Caal DO Consults: 02/25/21 16:25 Consult Physician Routine Consulting Provider: Torres Chaudhari Consult Reason/Comments: icu management Do you want consulting provider notified?: Already Contacted Primary care physician: [facility] Course: Pt was admitted for angiogram adn subsequently required thrombolysis. After conclusion of the procedures he was feeling better than upon admission. His groin is soft without hematoma. He is found to be in satisfactory condition for discharge. Plan - Discharge Summary New Discharge Prescriptions: Continue Clopidogrel [Plavix] 75 mg PO DAILY #30 tab No Action metFORMIN HCL 1,000 mg PO BID Glimepiride [Amaryl] 1 mg PO DAILY Atorvastatin [Lipitor] 5 mg PO HS Aspirin 81 mg PO DAILY #0 chewable Sulfamethox-Tmp 400-80Mg [Bactrim SS 400-80 mg] 400 mg PO BID Losartan Potassium 50 mg PO DAILY Discharge Medication List Glimepiride [Amaryl] 1 mg PO DAILY 01/12/21 [History] metFORMIN HCL 1,000 mg PO BID 01/12/21 [History] Aspirin 81 mg PO DAILY #0 chewable 01/15/21 [Rx] Atorvastatin [Lipitor] 5 mg PO HS 01/15/21 [History] Losartan Potassium 50 mg PO DAILY 02/25/21 [History] Sulfamethox-Tmp 400-80Mg [Bactrim SS 400-80 mg] 400 mg PO BID 02/25/21 [History] Clopidogrel [Plavix] 75 mg PO DAILY #30 tab 02/27/21 [Rx] Follow up Appointment(s)/Referral(s): Jeff Caal DO [Doctor of Osteopathic Medicine] - 2 Weeks Activity/Diet/Wound Care/Special Instructions: Resume regular activity. Resume diabetic diet. Blood sugar testing supplies and glucometer are ordered through [facility]. They can be contacted at [phone]. Discharge Disposition: HOME SELF-CARE
--- NOTE | 2021-02-27 10:11 | P.PN ---
Subjective Progress Note Date: 02/27/21 This is a 35-year-old male patient who underwent a atherectomy of the anterior tibial artery. The patient was having thrombosis of the left anterior tibial artery and tibial peroneal trunk on the left. The patient is known to have diabetes mellitus, coronary artery disease and hypertension. The patient was having also ischemic changes and left great toe and this was attributed to a significant tibial artery occlusion. The patient underwent atherectomy. The patient also had a TPA infusion catheter placed which is currently running at this point in time in the intensive care unit. This is running at 1 mg an hour. He is also on heparin. The catheter is present in his right groin and there is no hematoma formation or any signs of bleeding. The plan is to take him back to the vascular lab to undergo another angiogram today. No signs of any bleeding. Hemoglobin currently is at 12.9. He is hemodynamically stable. Pulse patient has improved in the left lower extremity. The patient has dorsalis pedis pulses obtained by Doppler signal. The feet are warm bilaterally. The toe wound is noninfected at this point in time. 02/27/2021, the patient got transferred out of the intensive care unit. Note that the patient had a repeat angiogram yesterday and the patient was found to have resolution of the anterior tibial and tibial trunk thrombosis and posterior tibial occlusion. This was satisfactory and the patient will likely get discharged home today. Meanwhile, the patient was also taken off the TPA and he was also taken off the thrombolytics. Doing well. No complaints. Likely going home today on Bactrim regarding his chronic osteomyelitis of the toe. Objective - Vital Signs Vital signs: Vital Signs Temp 98.1 F 02/27/21 08:00 Pulse 85 02/26/21 18:00 Resp 16 02/27/21 08:00 BP 142/87 02/27/21 08:00 Pulse Ox 99 02/27/21 08:00 Intake & Output 02/26/21 02/27/21 02/27/21 18:59 06:59 18:59 Intake Total 220 Output Total 1601 300 300 Balance -1381 -300 -300 Weight 99.9 kg Intake: IV 220 ns 220 Output: Urine 1601 300 300 Other: Voiding Method Urinal Urinal Urinal # Voids 1 1 - Exam Gen. appearance, comfortable likely distress Head exam was generally normal. There was no scleral icterus or corneal arcus. Mucous membranes were moist. Neck was supple and without jugular venous distension, thyromegaly, or carotid bruits. Carotids were easily palpable bilaterally. There was no adenopathy. Lungs were clear to auscultation and percussion, and with normal diaphragmatic excursion. No wheezes or rales were noted. Cardiac exam revealed the PMI to be normally situated and sized. The rhythm was regular and no extrasystoles were noted during several minutes of auscultation. The first and second heart sounds were normal and physiologic splitting of the second heart sound was noted. There were no murmurs, rubs, clicks, or gallops. Abdominal exam revealed normal bowel sounds. The abdomen was soft, non-tender, and without masses, organomegaly, or appreciable enlargement of the abdominal aorta. Extremities revealed diminished pulses in lower extremities bilaterally. pulses obtained in the left foot involving dorsalis pedis and posterior tibialis. The left great toe was inspected. There is no active drainage. There is no necrosis or gangrenous formation. The rest of the wounds are essentially healed lower extremities bilaterally. There is evidence of peripheral neuropathy and evidence of chronic trauma in the feet bilaterally with some Charcot joint development. No open wounds. No active drainage at this point in time. No synovitis. Neurologically, the patient is awake and alert and the patient does not have any focal neurological deficit. Cranial nerves are essentially intact. - Labs CBC & Chem 7: 02/26/21 08:47 02/26/21 08:47 Labs: Abnormal Lab Results - Last 24 Hours (Table) 02/26/21 02/26/21 02/26/21 Range/Units 11:17 18:13 20:05 POC Glucose (mg/dL) 176 H 163 H 195 H (75-99) mg/dL 02/27/21 Range/Units 05:49 POC Glucose (mg/dL) 165 H (75-99) mg/dL Assessment and Plan Plan: 1 severe peripheral vascular disease with thrombosis of the left anterior tibial artery and tibioperoneal trunk on the left with secondary chronic vascular changes in lower extremities and the nonhealing left toe ulcer. Patient is post atherectomy and currently the patient is on TPA infusion. Adequate pulses in the lower extremities obtained by Doppler signal, patient is postop day #2 2 chronic wounds of lower extremity active wound is the one in his left great toe no drainage or purulent material this point in time. 3 diabetes mellitus 4 hypertension 5 hyperlipidemia 6 history of marijuana smoking 7 peripheral neuropathy involving lower extremities bilaterally. 8 CAD with previous history of myocardial infarction , moderate triple-vessel coronary artery disease based on a cardiac catheterization that was done back in 2014. 9 diabetic retinopathy post laser eye surgery. 10 diabetic wound also involving the toe on the left, and the patient was treated for an MRSA wound infection and the patient was completing a course of Bactrim that was given to her in back in January 2021. Based on the x-rays, there could have been also a component of osteomyelitis involving the left great toe. Plan patient has adequate pulses in the left lower extremity and a limb looks warm and well vascularized. Patient was taken off the TPA and heparin the patient will likely get discharged home today. Control of cardiovascular risk factors and atherosclerotic factors including diabetes mellitus. Resume Bactrim for chronic MRSA left toe infection/osteomyelitis pulmonary and critical care services we'll sign off.
== END 2021-02-27 12:06 | disposition home or self-care (01) | DRG 253 ==
LOC: CATHCVL 07:12 → 2SICU 13:20 → CATHCVL 13:30 → 2SICU 13:30 → 3SCARD 02-26 18:50
PROVIDERS: ADMIT Surgery; ATTEND Surgery
PROC: 3E05317 Introduction of Other Thrombolytic into Peripheral Artery, Percutaneous Approach (ICD-10-PCS; principal; 2021-02-25 09:00)
PROC: B41G1ZZ Fluoroscopy of Left Lower Extremity Arteries using Low Osmolar Contrast (ICD-10-PCS; principal; 2021-02-25 09:00)
PROC: B41F1ZZ Fluoroscopy of Right Lower Extremity Arteries using Low Osmolar Contrast (ICD-10-PCS; principal; 2021-02-25 09:00)
PROC: 047Q3ZZ Dilation of Left Anterior Tibial Artery, Percutaneous Approach (ICD-10-PCS; principal; 2021-02-25 09:00)
PROC: B41F1ZZ Fluoroscopy of Right Lower Extremity Arteries using Low Osmolar Contrast (ICD-10-PCS; 2021-02-26)
DX: E11.52 Type 2 diabetes mellitus with diabetic peripheral angiopathy with gangrene (principal); M86.679 Other chronic osteomyelitis, unspecified ankle and foot; I70.269 Atherosclerosis of native arteries of extremities with gangrene, unspecified extremity; E11.42 Type 2 diabetes mellitus with diabetic polyneuropathy; I25.10 Atherosclerotic heart disease of native coronary artery without angina pectoris; E11.69 Type 2 diabetes mellitus with other specified complication; E78.5 Hyperlipidemia, unspecified; I10 Essential (primary) hypertension; I25.2 Old myocardial infarction; Z79.02 Long term (current) use of antithrombotics/antiplatelets; Z79.82 Long term (current) use of aspirin; Z79.84 Long term (current) use of oral hypoglycemic drugs; Z79.899 Other long term (current) drug therapy; Z82.49 Family history of ischemic heart disease and other diseases of the circulatory system
CPT/HCPCS: 37211; 37213; 37214; 37229; 80048; 85025; 85384; 87635

== ENCOUNTER 2021-05-03 11:01 | Emergency (ER) | payer OTHER ==
[2021-05-03 11:48] VITALS: TEMP 98.4
[2021-05-03] MEDS ORDERED: SODIUM CHLORIDE 0.9% 1,000 ML IV STA (12:32)
[2021-05-03] MEDS ORDERED: diphenhydrAMINE 50 MG/ML 1 ML VIAL IVP STA (12:32)
[2021-05-03] MEDS ORDERED: KETOROLAC 15 MG/ML 1 ML VIAL IVP STA (12:32)
[2021-05-03] MEDS ORDERED: ONDANSETRON 4 MG/2 ML VIAL IVP STA (12:32)
--- NOTE | 2021-05-03 12:37 | ED ---
General Adult HPI - General Chief complaint: Recheck/Abnormal Lab/Rx Stated complaint: elevated BP, sent from wound care Time Seen by Provider: 05/03/21 11:56 Source: patient Mode of arrival: ambulatory Limitations: no limitations - History of Present Illness Initial comments: Dictation was produced using [employer] dictation software. please excuse any grammatical, word or spelling errors. Chief Complaint: 35-year-old male sent in by [facility] surgeon for elevated blood pressure History of Present Illness: Is 35-year-old male he has past medical history of coronary artery disease, dyslipidemia, arterial disease, lower extremity ulcers and hypertension. He went to his appointment for hyperbaric oxygen to treat right lower extremity ulcer. Patient states that his symptoms have improved greatly over the last several days. At his hyperbaric oxygen appointment he was found have elevated blood pressure with levels measuring 198/139. Patient states he takes multiple blood pressure medications. Over the last couple days he hasn't been taking his medications. Chin has a history of headaches. He states he is having a mild migraine. Denies that this is a worse headache of his life. Denies any chest pain or shortness of breath. No strokelike symptoms. The ROS documented in this emergency department record has been reviewed and confirmed by me. Those systems with pertinent positive or negative responses have been documented in the HPI. All other systems are other negative and/or noncontributory. PHYSICAL EXAM: General Impression: Alert and oriented x3, not in acute distress HEENT: Normocephalic atraumatic, extra-ocular movements intact, pupils equal and reactive to light bilaterally, mucous membranes moist. Cardiovascular: Heart regular rate and rhythm Chest: Able to complete full sentences, no retractions, no tachypnea Abdomen: abdomen soft, non-tender, non-distended, no organomegaly Musculoskeletal: Pulses present and equal in all extremities, no peripheral edema Motor: no focal deficits noted Neurological: CN II-XII grossly intact, no focal motor or sensory deficits noted Skin: Intact with no visualized rashes Psych: Normal affect and mood ED course: 35-year-old male presents to emergency department for concerns of hypertension. vital signs upon I'll shows blood pressure 157/108, worse vital signs within acceptable limits. Patient evaluated bedside. He is well- appearing. No concerns for hypertensive emergency at this time. Patient given headache cocktail for his headache. Patient does not have any high-risk features regarding his headache. Since that he has history of migraines states that his symptoms are mild. Laboratory evaluation obtained. CBC, metabolic panel is within acceptable limits. Patient given headache cocktail with improvement of symptoms. Discussed the patient and supported that he take his medications as prescribed. Patient's elevated blood pressure is likely secondary to noncompliance with blood pressure medications. - Related Data Home Medications Medication Instructions Recorded Confirmed Glimepiride [Amaryl] 1 mg PO DAILY 01/12/21 05/03/21 metFORMIN HCL [Glucophage] 1,000 mg PO BID 01/12/21 05/03/21 Losartan Potassium 50 mg PO DAILY 02/25/21 05/03/21 Carvedilol [Coreg] 3.125 mg PO BID 05/03/21 05/03/21 Simvastatin [Zocor] 10 mg PO HS 05/03/21 05/03/21 Previous Rx's Medication Instructions Recorded Clopidogrel [Plavix] 75 mg PO DAILY #30 tab 02/27/21 Allergies Allergy/AdvReac Type Severity Reaction Status Date / Time No Known Allergies Allergy Verified 05/03/21 12:38 Review of Systems ROS Statement: Those systems with pertinent positive or pertinent negative responses have been documented in the HPI. ROS Other: All systems not noted in ROS Statement are negative. Past Medical History Past Medical History: Coronary Artery Disease (CAD), Diabetes Mellitus, Hyperlipidemia, Hypertension, Myocardial Infarction (SD), Skin Disorder, Vascular Disorder, Skin Disorder, Vascular Disorder Additional Past Medical History / Comment(s): neuropathy melvin legs, eczema, wound left great toe(on antibiotics currently)-goes to [facility] wound center, poor circulation melvin legs, eczema, Last Myocardial Infarction Date:: 2014 History of Any Multi-Drug Resistant Organisms: MRSA Date of last positivie culture/infection: 01/21/21 MDRO Source:: toe Past Surgical History: Heart Catheterization Additional Past Surgical History / Comment(s): laser eye surgery x 2, oral surgery, angiogram Past Anesthesia/Blood Transfusion Reactions: Motion Sickness Past Psychological History: Anxiety Smoking Status: Never smoker - Past Family History Mother Family Medical History: No Reported History Father Family Medical History: Coronary Artery Disease (CAD), Hypertension General Exam Limitations: no limitations Course Vital Signs 05/03/21 05/03/21 11:47 12:48 Temperature 98.4 F Pulse Rate 79 Respiratory 18 16 Rate Blood Pressure 157/108 O2 Sat by Pulse 99 Oximetry Medical Decision Making - Lab Data Result diagrams: 05/03/21 12:45 05/03/21 12:45 Lab Results 05/03/21 05/03/21 Range/Units 12:45 12:45 WBC 8.3 (3.8-10.6) k/uL RBC 4.50 (4.30-5.90) m/uL Hgb 13.9 (13.0-17.5) gm/dL Hct 40.6 (39.0-53.0) % MCV 90.2 (80.0-100.0) fL MCH 31.0 (25.0-35.0) pg MCHC 34.4 (31.0-37.0) g/dL RDW 13.5 (11.5-15.5) % Plt Count 316 (150-450) k/uL MPV 7.2 Neutrophils % 60 % Lymphocytes % 26 % Monocytes % 6 % Eosinophils % 5 % Basophils % 1 % Neutrophils # 5.0 (1.3-7.7) k/uL Lymphocytes # 2.2 (1.0-4.8) k/uL Monocytes # 0.5 (0-1.0) k/uL Eosinophils # 0.4 (0-0.7) k/uL Basophils # 0.1 (0-0.2) k/uL Sodium 134 L (137-145) mmol/L Potassium 4.7 (3.5-5.1) mmol/L Chloride 101 (98-107) mmol/L Carbon Dioxide 27 (22-30) mmol/L Anion Gap 6 mmol/L BUN 16 (9-20) mg/dL Creatinine 1.15 (0.66-1.25) mg/dL Est GFR (CKD-EPI)AfAm >90 (>60 ml/min/1.73 sqM) Est GFR (CKD-EPI)NonAf 81 (>60 ml/min/1.73 sqM) Glucose 185 H (74-99) mg/dL Calcium 9.2 (8.4-10.2) mg/dL Disposition Clinical Impression: Hypertension Disposition: HOME SELF-CARE Condition: Good Instructions (If sedation given, give patient instructions): Hypertension (ED) Is patient prescribed a controlled substance at d/c from ED?: No Referrals: Marlen Hatch MD [Primary Care Provider] - 1-2 days
[2021-05-03 12:53] LABS: Basophils # (A) 0.1 k/uL (0-0.2); Basophils % (A) 1 %; Eosinophils # (A) 0.4 k/uL (0-0.7); Eosinophils % (A) 5 %; HCT 40.6 % (39.0-53.0); HGB 13.9 gm/dL (13.0-17.5); Lymphocytes # (A) 2.2 k/uL (1.0-4.8); Lymphocytes % (A) 26 %; MCHC 34.4 g/dL (31.0-37.0); MCV 90.2 fL (80.0-100.0); Mean Platelet Volume 7.2; Monocytes # (A) 0.5 k/uL (0-1.0); Monocytes % (A) 6 %; Neutrophils % (A) 60 %; Platelet Count 316 k/uL (150-450); RDW 13.5 % (11.5-15.5); WBC 8.3 k/uL (3.8-10.6)
[2021-05-03 12:55] VITALS: RESP 16
[2021-05-03 13:12] LABS: African American GFR (CKD) >90 (>60 ml/min/1.73 sqM); Anion Gap 6 mmol/L; Blood Urea Nitrogen 16 mg/dL (9-20); Calcium 9.2 mg/dL (8.4-10.2); Carbon Dioxide 27 mmol/L (22-30); Chloride 101 mmol/L (98-107); Glucose 185 mg/dL (74-99); Non-African American GFR(CKD) 81 (>60 ml/min/1.73 sqM); Potassium 4.7 mmol/L (3.5-5.1); Sodium 134 mmol/L (137-145)
[2021-05-03 14:27] VITALS: BP 163/104; PULSE 67
== END 2021-05-03 14:28 | disposition home or self-care (01) ==
LOC: EC 11:01
DX: I10 Essential (primary) hypertension (principal); I25.10 Atherosclerotic heart disease of native coronary artery without angina pectoris; E11.9 Type 2 diabetes mellitus without complications; E78.5 Hyperlipidemia, unspecified; I25.2 Old myocardial infarction; F41.9 Anxiety disorder, unspecified; Z79.84 Long term (current) use of oral hypoglycemic drugs; Z79.02 Long term (current) use of antithrombotics/antiplatelets
CPT/HCPCS: 99284; 96374; 96375 ×2; 96361; 36415; 80048; 85025; J1200; J2405; J1885

== ENCOUNTER 2021-07-24 09:10 | Observation (INO) | payer OTHER ==
[2021-07-24] MEDS ORDERED: ASPIRIN 81 MG PO STA (09:26)
[2021-07-24] MEDS ORDERED: SODIUM CHLORIDE 0.9% 500 ML 500 ML IV STA (09:26)
[2021-07-24] MEDS ORDERED: NITROGLYCERIN OINT 1 INCH/GM PACKET TOPICAL STA (09:26)
--- NOTE | 2021-07-24 09:29 | ED ---
General Adult HPI - General Chief complaint: Chest Pain Stated complaint: Chest Pain Time Seen by Provider: 07/24/21 09:15 Source: patient, RN notes reviewed, old records reviewed Mode of arrival: ambulatory Limitations: no limitations - History of Present Illness Initial comments: This 35-year-old male who presents emergency department with past medical history significant for heart attack diabetes hypertension high cholesterol. Patient also had an arthrectomy of his anterior tibial artery. Patient comes in today stating he has been having intermittent chest pain since . Patient states that last between 2030 minutes at a time. Patient states he also feels as though his take deep breath because he feels a little short of breath when this occurs. Patient denies any palpitations. Patient denies any radiation of the pain. Patient states the pain is central in his chest. Patient denies any swelling to the legs or calf tenderness. Patient denies any nausea vomiting diarrhea. Patient denies any fever chills or cough. - Related Data Home Medications Medication Instructions Recorded Confirmed Glimepiride [Amaryl] 1 mg PO DAILY 01/12/21 07/24/21 metFORMIN HCL [Glucophage] 1,000 mg PO BID-W/MEALS 01/12/21 07/24/21 Losartan Potassium 50 mg PO DAILY 02/25/21 07/24/21 Carvedilol [Coreg] 3.125 mg PO BID-W/MEALS 05/03/21 07/24/21 Simvastatin [Zocor] 10 mg PO HS 05/03/21 07/24/21 Previous Rx's Medication Instructions Recorded Clopidogrel [Plavix] 75 mg PO DAILY #30 tab 02/27/21 Allergies Allergy/AdvReac Type Severity Reaction Status Date / Time No Known Allergies Allergy Verified 07/24/21 10:04 Review of Systems ROS Statement: Those systems with pertinent positive or pertinent negative responses have been documented in the HPI. ROS Other: All systems not noted in ROS Statement are negative. Past Medical History Past Medical History: Coronary Artery Disease (CAD), Diabetes Mellitus, Hyperlipidemia, Hypertension, Myocardial Infarction (AR), Skin Disorder, Vascular Disorder, Skin Disorder, Vascular Disorder Additional Past Medical History / Comment(s): neuropathy melvin legs, eczema, wound left great toe(on antibiotics currently)-goes to [facility] wound center, poor circulation melvin legs, eczema, Last Myocardial Infarction Date:: 2014 History of Any Multi-Drug Resistant Organisms: MRSA Date of last positivie culture/infection: 01/21/21 MDRO Source:: toe Past Surgical History: Heart Catheterization Additional Past Surgical History / Comment(s): laser eye surgery x 2, oral surgery, angiogram Past Anesthesia/Blood Transfusion Reactions: Motion Sickness Past Psychological History: Anxiety Smoking Status: Never smoker Past Alcohol Use History: None Reported Past Drug Use History: None Reported - Past Family History Mother Family Medical History: No Reported History Father Family Medical History: Coronary Artery Disease (CAD), Hypertension General Exam - General Exam Comments Initial Comments: GENERAL: Patient is well-developed and well-nourished. Patient is nontoxic and well- hydrated and is in mild distress. ENT: Neck is soft and supple. No significant lymphadenopathy is noted. Oropharynx is clear. Moist mucous membranes. Neck has full range of motion without eliciting any pain. EYES: The sclera were anicteric and conjunctiva were pink and moist. Extraocular movements were intact and pupils were equal round and reactive to light. Eyelids were unremarkable. PULMONARY: Unlabored respirations. Good breath sounds bilaterally. No audible rales rhonchi or wheezing was noted. CARDIOVASCULAR: There is a regular rate and rhythm without any murmurs gallops or rubs. ABDOMEN: Soft and nontender with normal bowel sounds. SKIN: Skin is clear with no lesions or rashes and otherwise unremarkable. NEUROLOGIC: Patient is alert and oriented x3. Cranial nerves II through XII are grossly intact. Motor and sensory are also intact. Normal speech, volume and content. Symmetrical smile. MUSCULOSKELETAL: Normal extremities with adequate strength and full range of motion. LYMPHATICS: No significant lymphadenopathy is noted PSYCHIATRIC: Normal psychiatric evaluation. Limitations: no limitations Course Vital Signs 07/24/21 07/24/21 09:14 10:00 Temperature 98.1 F Pulse Rate 76 68 Respiratory 19 15 Rate Blood Pressure 142/91 133/84 O2 Sat by Pulse 97 100 Oximetry Medical Decision Making - Medical Decision Making EKG shows a normal sinus rhythm at 71 bpm ID interval is 200 QRS 78 QT interval 354 QTC is 384. Patient's EKG shows no ST segment elevation or depression. I spoke with Dr. Clay at 10:25 AM about the patient's elevated troponin and previous medical history. I spoke with the significant hospice agreed to admit the patient to the patient wrote admitting orders I started the patient on heparin I continue the heparin and aspirin and Nitropaste on the floor. I ordered an echo and a consult to cardiology Patient remained chest pain-free in the emergency department however I did a second EKG it showed a normal sinus rhythm at 74 bpm ID interval is 194 QRS is 80 QT interval 362 QTC is 411. Patient's EKG showed no definitive ST segment elevation or depression. - Lab Data Result diagrams: 07/24/21 09:07/24/21 09: Lab Results 07/24/21 07/24/21 07/24/21 Range/Units 09:28 09: 09: WBC 9.7 (3.8-10.6) k/uL RBC 4.49 (4.30-5.90) m/uL Hgb 14.3 (13.0-17.5) gm/dL Hct 39.0 (39.0-53.0) % MCV 86.9 (80.0-100.0) fL MCH 31.8 (25.0-35.0) pg MCHC 36.6 (31.0-37.0) g/dL RDW 12.5 (11.5-15.5) % Plt Count 338 (150-450) k/uL MPV 6.8 Neutrophils % 71 % Lymphocytes % 18 % Monocytes % 6 % Eosinophils % 2 % Basophils % 0 % Neutrophils # 6.9 (1.3-7.7) k/uL Lymphocytes # 1.8 (1.0-4.8) k/uL Monocytes # 0.6 (0-1.0) k/uL Eosinophils # 0.2 (0-0.7) k/uL Basophils # 0.0 (0-0.2) k/uL Hyperchromasia Slight PT 9.9 (9.0-12.0) sec INR 0.9 (<1.2) APTT 23.8 (22.0-30.0) sec Sodium 135 L (137-145) mmol/L Potassium 4.1 (3.5-5.1) mmol/L Chloride 103 (98-107) mmol/L Carbon Dioxide 26 (22-30) mmol/L Anion Gap 6 mmol/L BUN 20 (9-20) mg/dL Creatinine 1.18 (0.66-1.25) mg/dL Est GFR (CKD-EPI)AfAm >90 (>60 ml/min/1.73 sqM) Est GFR (CKD-EPI)NonAf 78 (>60 ml/min/1.73 sqM) Glucose 168 H (74-99) mg/dL Calcium 9.4 (8.4-10.2) mg/dL Magnesium 1.8 (1.6-2.3) mg/dL Total Bilirubin 0.6 (0.2-1.3) mg/dL AST 27 (17-59) U/L ALT 16 (4-49) U/L Alkaline Phosphatase 105 (38-126) U/L Troponin I (0.000-0.034) ng/mL Total Protein 7.1 (6.3-8.2) g/dL Albumin 3.9 (3.5-5.0) g/dL Coronavirus (PCR) (Not Detectd) 07/24/21 07/24/21 Range/Units 09:28 09:40 WBC (3.8-10.6) k/uL RBC (4.30-5.90) m/uL Hgb (13.0-17.5) gm/dL Hct (39.0-53.0) % MCV (80.0-100.0) fL MCH (25.0-35.0) pg MCHC (31.0-37.0) g/dL RDW (11.5-15.5) % Plt Count (150-450) k/uL MPV Neutrophils % % Lymphocytes % % Monocytes % % Eosinophils % % Basophils % % Neutrophils # (1.3-7.7) k/uL Lymphocytes # (1.0-4.8) k/uL Monocytes # (0-1.0) k/uL Eosinophils # (0-0.7) k/uL Basophils # (0-0.2) k/uL Hyperchromasia PT (9.0-12.0) sec INR (<1.2) APTT (22.0-30.0) sec Sodium (137-145) mmol/L Potassium (3.5-5.1) mmol/L Chloride (98-107) mmol/L Carbon Dioxide (22-30) mmol/L Anion Gap mmol/L BUN (9-20) mg/dL Creatinine (0.66-1.25) mg/dL Est GFR (CKD-EPI)AfAm (>60 ml/min/1.73 sqM) Est GFR (CKD-EPI)NonAf (>60 ml/min/1.73 sqM) Glucose (74-99) mg/dL Calcium (8.4-10.2) mg/dL Magnesium (1.6-2.3) mg/dL Total Bilirubin (0.2-1.3) mg/dL AST (17-59) U/L ALT (4-49) U/L Alkaline Phosphatase (38-126) U/L Troponin I 1.130 H* (0.000-0.034) ng/mL Total Protein (6.3-8.2) g/dL Albumin (3.5-5.0) g/dL Coronavirus (PCR) Not Detected (Not Detectd) Critical Care Time Critical Care Time: Yes Total Critical Care Time: 35 Disposition Clinical Impression: NSTEMI (non-ST elevated myocardial infarction) Disposition: ADMITTED IP TO THIS HOSP Referrals: Marlen Hatch MD [Primary Care Provider] - 1-2 days Time of Disposition: 10:27
[2021-07-24 09:58] LABS: ALT 16 U/L (4-49); AST 27 U/L (17-59); African American GFR (CKD) >90 (>60 ml/min/1.73 sqM); Albumin 3.9 g/dL (3.5-5.0); Alkaline Phosphatase 105 U/L (38-126); Anion Gap 6 mmol/L; Blood Urea Nitrogen 20 mg/dL (9-20); Calcium 9.4 mg/dL (8.4-10.2); Carbon Dioxide 26 mmol/L (22-30); Chloride 103 mmol/L (98-107); Glucose 168 mg/dL (74-99); INR 0.9 (<1.2); Magnesium 1.8 mg/dL (1.6-2.3); Non-African American GFR(CKD) 78 (>60 ml/min/1.73 sqM); Partial Thromboplastin Time 23.8 sec (22.0-30.0); Potassium 4.1 mmol/L (3.5-5.1); Prothrombin Time 9.9 sec (9.0-12.0); Sodium 135 mmol/L (137-145); Total Bilirubin 0.6 mg/dL (0.2-1.3); Total Protein 7.1 g/dL (6.3-8.2)
--- NOTE | 2021-07-24 10:05 | XR ---
EXAMINATION TYPE: XR chest 2V DATE OF EXAM: 07/24/2021 COMPARISON: 11/17/2014 INDICATION: chest pain TECHNIQUE: Frontal and lateral views of the chest are obtained. FINDINGS: The heart size is normal. The pulmonary vasculature is normal. The lungs are clear. IMPRESSION: 1. No acute pulmonary process.
[2021-07-24 10:21] LABS: Basophils % (A) 0 %; Eosinophils # (A) 0.2 k/uL (0-0.7); Eosinophils % (A) 2 %; HGB 14.3 gm/dL (13.0-17.5); Hyperchromasia Slight; Lymphocytes # (A) 1.8 k/uL (1.0-4.8); Lymphocytes % (A) 18 %; MCH 31.8 pg (25.0-35.0); MCHC 36.6 g/dL (31.0-37.0); MCV 86.9 fL (80.0-100.0); Mean Platelet Volume 6.8; Monocytes # (A) 0.6 k/uL (0-1.0); Monocytes % (A) 6 %; Neutrophils # (A) 6.9 k/uL (1.3-7.7); Neutrophils % (A) 71 %; Platelet Count 338 k/uL (150-450); RBC 4.49 m/uL (4.30-5.90); RDW 12.5 % (11.5-15.5); WBC 9.7 k/uL (3.8-10.6)
[2021-07-24] MEDS ORDERED: HEPARIN SODIUM 1,000 UN/ML (10ML VL) IV ONE (10:24)
[2021-07-24] MEDS ORDERED: NITROGLYCERIN SL TABS 0.4 MG TAB SUBLINGUAL PRN (10:28)
[2021-07-24] MEDS: HEPARIN SOD,PORK IN 0.45% NACL 25,000 UNIT in 0.45% NACL 1 250ML.BAG IV SCH (11:50)
[2021-07-24] MEDS: NITROGLYCERIN OINT 1 INCH/GM PACKET TOPICAL SCH ×3 (13:10→23:00)
--- NOTE | 2021-07-24 14:00 | ECHOF ---
Referral Reason: MEASUREMENTS -------- HEIGHT: 180.3 cm WEIGHT: 99.8 kg BP: IVSd: 1.3 cm (0.6 - 1.1) LVIDd: 2.9 cm (3.9 - 5.3) LVPWd: 1.2 cm (0.6 - 1.1) EDV(Teich): 33 ml IVSs: 2.0 cm LVIDs: 1.7 cm LVPWs: 1.7 cm %IVS Thck: 53 % ESV(Teich): 9 ml EF(Teich): 73 % %FS: 41 % SV(Teich): 24 ml IVC: 16.08 mm LALs A4C: 5.1 cm LAAs A4C: 20.0 cm LAESV A-L A4C: 67 ml LAESV MOD A4C: 64 ml LALs A2C: 5.9 cm LAAs A2C: 21.3 cm LAESV A-L A2C: 66 ml LAESV MOD A2C: 63 ml LAESV(A-L): 71 ml LAESV Index (A-L): 32.49 ml/m Ao Diam: 3.0 cm (2.0 - 3.7) LA Diam: 3.7 cm (2.7 - 3.8) AV Cusp: 1.8 cm (1.5 - 2.6) EPSS: 0.6 cm MV E Enrrique: 0.61 m/s MV A Enrrique: 0.91 m/s MV E/A Ratio: 0.67 MV PHT: 0 ms MR Vmax: 3.46 m/s MR maxP.88 mmHg AV Vmax: 1.00 m/s AV maxP.04 mmHg TR Vmax: 1.03 m/s TR maxP.21 mmHg RAP: 5.00 mmHg RVSP: 9.21 mmHg MV EF SLOPE: 183.39 mm/s (70 - 150) MV EXCURSION: 23.64 mm (> 18.000) FINDINGS -------- This was a technically good study. The left ventricular size is normal. There is mild concentric left ventricular hypertrophy. Overa ll left ventricular systolic function is normal with, an EF between 55 - 60 %. The diastolic fillin g pattern is normal for the age of the patient 9.94. The right ventricle is normal in size. LA is midly dilated 29-33ml/m2. The right atrial size is normal. The aortic valve is trileaflet and appears structurally normal. The mitral valve is normal. Mild mitral regurgitation is present. The tricuspid valve appears structurally normal. Mild tricuspid regurgitation present. Right vent ricular systolic pressure is normal at < 35 mmHg. There is no pulmonic regurgitation present. The aortic root size is normal. Normal inferior vena cava with normal inspiratory collapse consistent with estimated right atrial pre ssure of 5 mmHg. There is a trivial pericardial effusion present. CONCLUSIONS -------- 1. The left ventricular size is normal. 2. There is mild concentric left ventricular hypertrophy. 3. Overall left ventricular systolic function is normal with, an EF between 55 - 60 %. 4. The diastolic filling pattern is normal for the age of the patient 9.94 5. LA is midly dilated 29-33ml/m2. 6. Mild mitral regurgitation is present. 7. Mild tricuspid regurgitation present. 8. There is a trivial pericardial effusion present. SPINNING LATHE OPERATOR: Harper Maciel RDCS
[2021-07-24] MEDS: carvediloL 3.125 MG TAB PO SCH (16:41)
[2021-07-24] MEDS ORDERED: metFORMIN 500 MG TAB PO SCH (17:30)
[2021-07-24] MEDS ORDERED: HEPARIN SODIUM 1,000 UN/ML (10ML VL) IVP ONE (18:10)
--- NOTE | 2021-07-24 22:38 | P.HPIM ---
History of Present Illness H&P Date: 07/24/21 Chief Complaint: Chest Pain Patient is a 35-year-old male with a known history of peripheral vascular disease status post atherectomy, history of cardiac catheterization, history of VT, hypertension, diabetes type 2, hyperlipidemia, bilateral lower extremity neuropathy and anxiety presents to ER with complaints of intermittent chest pains since last . Patient was coming from a when he initially had chest pain and more of her discomfort. Since then he has been having intermittent chest pains lasting about 10 minutes associate with minimal shortness of breath. Denied any nausea or vomiting. No palpitations. Denied any radiation of the pain. No leg swelling. Otherwise denied any recent illnesses. No headache or dizziness or lightheadedness. No fever no chills. No cough or sputum production. Chest x-ray showed no acute pulmonary process EKG showed normal sinus rhythm Laboratory showed WBC 9.7 hemoglobin 14.3, platelets 338 INR 0.9 Sodium 135 potassium 4.1 chloride 103 bicarb is 26 BUN 20 and creatinine 1.1 and blood sugar is 168 Liver enzymes are not elevated. Troponin I 0.138, 1.63 and 2.82 Coronavirus PCR not detected. Review of Systems Constitutional: Patient denies any fever or chills . No generalized weakness or weight loss. Abdomen: Patient denied nausea vomiting and diarrhea and abdominal pain. Cardiovascular: Patient does have intermittent chest pain associated shortness of breath. No leg swelling. No palpitations. Respiratory: patient denied any cough or sputum production. No shortness of breath Neurologic: Patient denied any numbness or tingling headache. Musculoskeletal: Patient denies any complaints of joint swelling or deformity. Skin: Negative Psychiatric: Negative Endocrine: No heat or cold intolerance. No recent weight gain. Genitourinary: No dysuria or hematuria. All other 14 point ROS negative except the above Past Medical History Past Medical History: Coronary Artery Disease (CAD), Diabetes Mellitus, Hyperlipidemia, Hypertension, Myocardial Infarction (VT), Skin Disorder, Vascular Disorder, Skin Disorder, Vascular Disorder Additional Past Medical History / Comment(s): neuropathy melvin legs, eczema, wound left great toe(on antibiotics currently)-goes to [facility] wound center, poor circulation melvin legs, eczema, Last Myocardial Infarction Date:: 2014 History of Any Multi-Drug Resistant Organisms: MRSA Date of last positivie culture/infection: 01/21/21 MDRO Source:: toe Past Surgical History: Heart Catheterization Additional Past Surgical History / Comment(s): laser eye surgery x 2, oral surgery, angiogram Past Anesthesia/Blood Transfusion Reactions: Motion Sickness Past Psychological History: Anxiety Smoking Status: Never smoker Past Alcohol Use History: None Reported Past Drug Use History: None Reported Additional Drug Use History / Comment(s): occ. use - Past Family History Mother Family Medical History: No Reported History Father Family Medical History: Coronary Artery Disease (CAD), Hypertension Medications and Allergies Home Medications Medication Instructions Recorded Confirmed Type Glimepiride [Amaryl] 1 mg PO DAILY 01/12/21 07/24/21 History metFORMIN HCL [Glucophage] 1,000 mg PO BID-W/MEALS 01/12/21 07/24/21 History Losartan Potassium 50 mg PO DAILY 02/25/21 07/24/21 History Clopidogrel [Plavix] 75 mg PO DAILY #30 tab 02/27/21 07/24/21 Rx Carvedilol [Coreg] 3.125 mg PO BID-W/MEALS 05/03/21 07/24/21 History Simvastatin [Zocor] 10 mg PO HS 05/03/21 07/24/21 History Allergies Allergy/AdvReac Type Severity Reaction Status Date / Time No Known Allergies Allergy Verified 07/24/21 10:04 Physical Exam Vitals: Vital Signs Temp Pulse Pulse Resp BP BP Pulse Ox 07/24/21 19:53 98.4 F 81 16 145/90 98 07/24/21 16:39 98.6 F 70 15 139/96 100 07/24/21 14:55 98.9 F 76 16 144/90 99 07/24/21 13:19 82 16 120/75 97 07/24/21 11:55 79 15 142/90 97 07/24/21 10:00 68 15 133/84 100 07/24/21 09:14 98.1 F 76 19 142/91 97 Intake and Output 07/24/21 07/24/21 07/24/21 06:59 14:59 22:59 Intake Total 783.66 Balance 783.66 Intake: Intake, IV Titration 63.66 Amount Heparin Sod,Pork in 0.45% 63.66 NaCl 25,000 unit In 0.45 % NaCl 1 250ml.bag @ 10. 02 UNITS/KG/HR 9.999 mls/ hr IV .Q24H [facility] Rx#: [id number] Oral 720 Other: Voiding Method Toilet Urinal # Voids 2 Weight 99.79 kg 99.79 kg PHYSICAL EXAMINATION: Patient is lying in the bed comfortably, no acute distress, awake alert and oriented.. HEENT: Normocephalic. Neck is supple. Pupils reactive. Nostrils clear. Oral cavity is moist. Neck reveals no JVD, carotid bruits, or thyromegaly. CHEST EXAMINATION: Trachea is central. Symmetrical expansion. Lung juan clear to auscultation and percussion. CARDIAC: Normal S1, S2 with no gallops. No murmurs ABDOMEN: Soft. Bowel sounds normal. No organomegaly. No abdominal bruits. Extremities: reveal no edema. No clubbing or cyanosis Neurologically awake, alert, oriented x3 with well-coordinated movements. No focal deficits noted Skin: No rash or skin lesions. Psychiatric: Cooperative. Nonsuicidal Musculoskeletal: No joint swelling or deformity. Normal range of motion. Results CBC & Chem 7: 07/24/21 09:28 07/24/21 09:28 Labs: Abnormal Lab Results - Last 24 Hours (Table) 07/24/21 07/24/21 07/24/21 Range/Units 09:28 09:28 13:25 APTT (22.0-30.0) sec Sodium 135 L (137-145) mmol/L Glucose 168 H (74-99) mg/dL Troponin I 1.130 H* 1.630 H* (0.000-0.034) ng/mL 07/24/21 07/24/21 Range/Units 16:58 16:58 APTT 31.1 H (22.0-30.0) sec Sodium (137-145) mmol/L Glucose (74-99) mg/dL Troponin I 2.820 H* (0.000-0.034) ng/mL Thrombosis Risk Factor Assmnt - DVT/VTE Prophylaxis DVT/VTE Prophylaxis: Pharmacologic Prophylaxis ordered - Choose All That Apply Each Factor Represents 1 point: Acute VT, Obesity (BMI >25) Each Risk Factor Represents 3 Points: History of DVT/PE Other congenital or acquired thrombophilia - If yes, enter type in comment: No Thrombosis Risk Factor Assessment Total Risk Factor Score: 5 Thrombosis Risk Factor Assessment Level: High Risk Assessment and Plan Assessment: Acute non-ST elevated [place] Peripheral vascular disease with history of atherectomy of his anterior tibial artery Hypertension Diabetes type 2 [id number] Hyperlipidemia History of VT and cardiac catheterization. No PCI Bilateral peripheral neuropathy Anxiety Plan: Patient is being followed on telemetry monitoring. Was started on heparin drip and 2D echocardiogram was ordered. Cardiology was consulted. Patient will be continued on aspirin and follow-up lipid profile. Continue with insulin sliding scale and blood pressure medications. Continue to monitor closely. Time with Patient: Greater than 30
[2021-07-25 06:02] LABS: Glucose,Whole Blood 138 mg/dL (75-99)
[2021-07-25] MEDS: NITROGLYCERIN OINT 1 INCH/GM PACKET TOPICAL SCH ×3 (06:33→17:17)
[2021-07-25] MEDS: carvediloL 3.125 MG TAB PO SCH ×2 (06:33→17:18)
[2021-07-25] MEDS: INSULIN ASPART (NovoLOG) 100 UNIT/ML VIAL SQ SCH ×5 (06:33→20:57)
[2021-07-25] MEDS: LOSARTAN 50 MG TAB PO SCH (08:51)
[2021-07-25] MEDS: CLOPIDOGREL 75 MG TAB PO SCH (08:51)
[2021-07-25] MEDS ORDERED: ASPIRIN 325 MG TAB PO SCH (09:00)
[2021-07-25] MEDS: GLIMEPIRIDE 1 MG TAB PO SCH (09:03)
[2021-07-25 09:10] VITALS: RESP 18
[2021-07-25] MEDS ORDERED: ATORVASTATIN 80 MG TAB PO STA (09:33)
[2021-07-25] MEDS ORDERED: ALPRAZolam 0.5 MG TAB PO PRN (09:33)
[2021-07-25] MEDS ORDERED: ALPRAZolam 0.25 MG TAB PO PRN (09:33)
[2021-07-25] MEDS ORDERED: NITROGLYCERIN SL TABS 0.4 MG TAB SUBLINGUAL PRN ×2 (09:33→12:22)
[2021-07-25] MEDS ORDERED: ASPIRIN 325 MG TAB PO STA (09:33)
[2021-07-25] MEDS ORDERED: LIDOCAINE 1% INJ 10MG/ML (20 ML MDV) ONE (10:38)
[2021-07-25] MEDS ORDERED: VERAPAMIL 2.5 MG/ML 2 ML AMP ONE (10:38)
[2021-07-25] MEDS ORDERED: SODIUM CHLORIDE 0.9% 1,000 ML IV ONE (10:39)
[2021-07-25] MEDS ORDERED: .fentaNYL (PF) 50 MCG/ML 2 ML AMP ONE (10:54)
[2021-07-25] MEDS ORDERED: HEPARIN SODIUM 1,000 UN/ML (10ML VL) ONE (10:54)
[2021-07-25] MEDS: SODIUM CHLORIDE 0.9% 1,000 ML in EMPTY BAG 1 BAG IV SCH (10:56)
[2021-07-25] MEDS ORDERED: MIDAZOLAM 2 MG/2 ML VIAL IV ONE (10:59)
[2021-07-25] MEDS ORDERED: .fentaNYL (PF) 50 MCG/ML 2 ML AMP IV ONE (10:59)
[2021-07-25] MEDS ORDERED: LIDOCAINE 1% INJ 10MG/ML (20 ML MDV) SQ ONE (11:03)
[2021-07-25] MEDS ORDERED: VERAPAMIL SYRINGE (5 MG/10 ML) INTRAARTER ONE (11:05)
[2021-07-25] MEDS ORDERED: HEPARIN SODIUM 1,000 UN/ML (10ML VL) IV ONE ×2 (11:07→11:31)
[2021-07-25] MEDS ORDERED: CLOPIDOGREL 75 MG TAB PO ONE (11:27)
[2021-07-25] MEDS ORDERED: CLOPIDOGREL 75 MG TAB ONE (11:28)
--- NOTE | 2021-07-25 11:34 | P.CARDCATH ---
Date of Procedure: 07/25/21 Preoperative Diagnosis: non-STEMI Postoperative Diagnosis: Triple-vessel disease with a critical lesion involving the distal RCA Procedure(s) Performed: left heart catheterization without left ventriculography Description of Procedure: HISTORY: This is a 35-year-old gentleman with history of diabetes hypertension and hypercholesterolemia and known mild coronary artery disease who presented to the hospital with complaints of intermittent chest pains. His EKG did not reveal any acute changes. However cardiac enzymes showed elevation of troponin consistent with non-STEMI. Patient is advised to have a cardiac catheterizatio n. Echocardiogram showed normal LV function CONSENT:I have discussed the risks, benefits and alternative therapies for the above-mentioned procedure and for both sedation/analgesia as well as necessary blood product administration, if indicated, as they pertain to this patient. The patient has indicated understanding and acceptance of the risks and procedures discussed. PROCEDURE: Patient was brought to the lab in a fasting state. Patient was given some IV sedation. The right wrist is infiltrated with lidocaine and right radial artery was entered using Seldinger technique. A 6-German catheter was left in place and selective coronary arteriography was performed. Patient tolerated the procedure well. patient went on to have stent placement of the RCA by Dr. Casarez. No immediate complications were noted Conscious Sedation: Versed 1mg Fentanyl 50 g Duration 18minutes HEMODYNAMICS: The aortic pressure is 140/80 SELECTIVE CORONARY ARTERIOGRAPHY: LEFT MAIN: normal length and patent THE LEFT ANTERIOR DESCENDING CORONARY ARTERY: good caliber vessel with about 60% stenosis in the proximal to midportion THE LEFT CIRCUMFLEX AND IS CORONARY ARTERY:good caliber vessel giving rise to small OM branch. OM branch has about 60-70% stenosis THE RIGHT CORONARY ARTERY: dominant vessel with 99% stenosis in the distal portion LEFT VENTRICULOGRAPHY: not performed FINAL IMPRESSION: critical lesion involving the distal RCA. Moderate disease in the LAD and circumflex PLAN: stent placement of the RCA. May consider FFR of the LAD PROGNOSIS: guarded
[2021-07-25] MEDS ORDERED: NITROGLYCERIN 1000MCG/10ML SYRINGE INTRAARTER ONE (11:39)
[2021-07-25] MEDS ORDERED: IOPAMIDOL-370 125ML BTL INJ ONE (11:41)
[2021-07-25] MEDS ORDERED: IOPAMIDOL-370 100ML BTL INJ ONE (12:05)
[2021-07-25] MEDS ORDERED: ATROPINE SULFATE 0.1 MG/ML 10ML SYRINGE IV PRN (12:22)
[2021-07-25] MEDS ORDERED: MAG HYDROX/AL HYDROX/SIMETH 30 ML CUP PO PRN (12:22)
[2021-07-25] MEDS ORDERED: RX INFO: IV CONTRAST WAS GIVEN 1 EACH MISC MISCELLANE PRN (12:22)
[2021-07-25] MEDS ORDERED: ZOLPIDEM 5 MG TAB PO PRN (12:22)
--- NOTE | 2021-07-25 12:22 | P.PRCINT ---
Percutaneous Coronary Int. - Percutaneous Coronary Intervention Percutaneous Coronary Intervention: PROCEDURES PERFORMED: Right coronary angiography, PCI distal RCA with a 3.0 x 12 mm Xience FALGUNI, iFR LAD INDICATION: Non-STEMI HISTORY: Patient is a pleasant 35-year-old male who has been having off-and-on chest pain over the last 3 days. Patient was found to have non-STEMI and therefore diagnostic heart catheterization was performed which showed a 99% distal RCA lesion as well as a proximal and mid 60-70% LAD lesion. PROCEDURE: Patient had been taken to the catheterization lab and prepped and draped in usual fashion. A 6-Albanian sheath had already been placed in the right radial artery. The decision was made to perform PCI on the RCA. Heparin was given for ACT greater than 250. The RCA was engaged with a 6-Albanian AL 0.75 guide. A 0.014 BMW wire was advanced into the distal RCA. The lesion was predilated with a 2.5 x 8 mm balloon. Next a 3.0 x 12 mm Xience FALGUNI was placed. There was a pseudo lesion of the mid RCA with a wire down however this improved with withdrawing the wire and it remained approximately 40% similar to previous. The wire was pulled and final angiograms were performed. Pre intervention there is 99% stenosis and KIERA-3 flow and postintervention there was 0% stenosis and KIERA-3 flow. The decision was made to iFR the LAD. The left main was engaged with a 6-Albanian CLS 3.0 guide. A 0.014 pressure wire was advanced into the mid LAD approximately 1-2 cm distal to the lesion. iFR was performed and was normal at 0.94. The wire was then withdrawn. The right radial sheath was removed and a TR band was placed with hemostasis achieved. The patient tolerated the procedure well. Patient was transported back to the post catheterization holding area in stable condition. Conscious Sedation: Patient was monitored under the direct supervision of vision of myself for conscious sedation using Versed and fentanyl for a total duration of 38 minutes HEMODYNAMICS: Aorta: 134/78 SELECTIVE CORONARY ARTERIOGRAPHY: LEFT MAIN: Not imaged LEFT ANTERIOR DESCENDING CORONARY ARTERY: Not imaged LEFT CIRCUMFLEX CORONARY ARTERY: Not imaged RIGHT CORONARY ARTERY: The right coronary artery is a large caliber vessel which gives off a PDA and PLV branch and is the dominant vessel. There is a mid RCA 40% stenosis as well as a proximal RCA 20-30% stenosis. There is a more focal distal RCA 99% stenosis. FINAL IMPRESSION: 1. Coronary artery disease as described above with 99% RCA stenosis status post PCI with a 3.0 x 12 mm Xience FALGUNI 2. Normal iFR of LAD at 0.94 PLAN: 1. Aggressive risk factor modification per most recent ACC/AHA guidelines. 2. Continue dual antiplatelets for 12 months. 3. Would continue to treat LAD medically as iFR 0.94
--- NOTE | 2021-07-25 13:03 | PN ---
PROGRESS NOTE This is a 35-year-old gentleman with history of mild to moderate coronary artery disease who was evaluated by cardiac catheterization in the past in 2014. At that time the patient presented to the hospital with chest pain and borderline cardiac enzymes and troponin values. He was found to have mild disease with about 40% stenosis of the LAD and 60% stenosis of the diagonal. He was advised medical therapy. 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 His home medications include metformin, simvastatin, losartan, glimepiride, Plavix and carvedilol. He was attending a for one of his relatives and then he developed stress. Patient has been having chest discomfort in the middle of the chest which was intermittent in nature. It lasted about a few minutes and then subsided spontaneously. No radiation. No symptoms of nausea, vomiting or sweating. His EKG did not reveal any acute changes. However, first troponin was high in the range of 1.3. At the time of my examination, patient is quite comfortable. It appears that the patient may have a [id number] DE. His echocardiogram apparently showed normal LV function. We will continue to follow his cardiac enzymes. If necessary, patient may need repeat cardiac catheterization for definitive diagnosis. His past medical history is significant for diabetes, hypertension, and previous nonobstructive coronary artery disease. Medications as described above. ALLERGIES: Nil known. Physical examination reveals a 35-year-old gentleman who is well-built, well-nourished, does not appear in acute distress. His blood pressure is 120/75, pulse is 76. Pupils are equal. No anemia or jaundice. Neck is supple. No JVD. Heart: S1 and S2 heard. Lungs are clear. Heart is regular. No JVD. IMPRESSION: 1. Chest pain and positive troponins suggestive of possible [id number] myocardial infarction. Clinically stable at this time. 2. Known diffuse coronary artery disease. 3. Diabetes. 4. Hypertension. 5. Hypercholesterolemia. PLAN: Will continue to monitor his cardiac enzymes, continue treating with beta blockers, nitrates, Plavix and aspirin. Echocardiogram which is already done. Patient may need a cardiac catheterization for definitive diagnosis. MMODL / IJN: [id number] /
[2021-07-25 14:41] LABS: Basophils % (A) 0 %; Eosinophils # (A) 0.2 k/uL (0-0.7); Eosinophils % (A) 3 %; HCT 36.6 % (39.0-53.0); HGB 12.5 gm/dL (13.0-17.5); Lymphocytes # (A) 2.5 k/uL (1.0-4.8); Lymphocytes % (A) 29 %; MCH 30.6 pg (25.0-35.0); MCHC 34.2 g/dL (31.0-37.0); MCV 89.6 fL (80.0-100.0); Monocytes # (A) 0.4 k/uL (0-1.0); Monocytes % (A) 4 %; Neutrophils # (A) 5.2 k/uL (1.3-7.7); Neutrophils % (A) 61 %; Platelet Count 290 k/uL (150-450); RBC 4.09 m/uL (4.30-5.90); WBC 8.4 k/uL (3.8-10.6)
[2021-07-25 14:56] LABS: African American GFR (CKD) >90 (>60 ml/min/1.73 sqM); Anion Gap 5 mmol/L; Blood Urea Nitrogen 19 mg/dL (9-20); Calcium 8.4 mg/dL (8.4-10.2); Carbon Dioxide 26 mmol/L (22-30); Chloride 100 mmol/L (98-107); Glucose 271 mg/dL (74-99); Non-African American GFR(CKD) 81 (>60 ml/min/1.73 sqM); Potassium 4.3 mmol/L (3.5-5.1); Sodium 131 mmol/L (137-145)
[2021-07-25] MEDS: HEPARIN SOD,PORK IN 0.45% NACL 25,000 UNIT in 0.45% NACL 1 250ML.BAG IV SCH (14:56)
[2021-07-25] MEDS: SODIUM CHLORIDE 0.9% 1,000 ML IV SCH (17:22)
[2021-07-25 20:59] LABS: Glucose,Whole Blood 150 mg/dL (75-99)
--- NOTE | 2021-07-25 21:48 | P.PN ---
Subjective Progress Note Date: 07/25/21 Principal diagnosis: Acute non-ST elevated [place] Patient is a 35-year-old male with a known history of peripheral vascular disease status post atherectomy, history of cardiac catheterization, history of [place], hypertension, diabetes type 2, hyperlipidemia, bilateral lower extremity ne uropathy and anxiety presents to ER with complaints of intermittent chest pains since last . Patient was coming from a when he initially had chest pain and more of her discomfort. Since then he has been having intermittent chest pains lasting about 10 minutes associate with minimal shortness of breath. Denied any nausea or vomiting. No palpitations. Denied any radiation of the pain. No leg swelling. Otherwise denied any recent illnesses. No headache or dizziness or lightheadedness. No fever no chills. No cough or sputum production. Chest x-ray showed no acute pulmonary process EKG showed normal sinus rhythm Laboratory showed WBC 9.7 hemoglobin 14.3, platelets 338 INR 0.9 Sodium 135 potassium 4.1 chloride 103 bicarb is 26 BUN 20 and creatinine 1.1 and blood sugar is 168 Liver enzymes are not elevated. Troponin I 0.138, 1.63 and 2.82 Coronavirus PCR not detected. 07/25/2021 Patient is currently lying in the bed awake alert and oriented x3. Underwent cardiac catheterization and stent placement. Patient was started on aspirin and Plavix and statins. Continue on Coreg. Cardiology is on board. Laboratory tests are WBC 8.4 hemoglobin 12.5 and platelets 299 sodium 131 potassium 4.3 chloride 100 BUN 19 and creatinine 1.16 Denies any complaints of chest pain or shortness of breath. No nausea vomiting or abdominal pain or diarrhea. No dysuria or hematuria. No headache or dizziness or lightheadedness. Current medications reviewed. Objective - Vital Signs Vital signs: Vital Signs Temp 98.0 F 07/25/21 08:34 Pulse 80 07/25/21 15:07 Resp 18 07/25/21 14:00 BP 137/89 07/25/21 15:07 Pulse Ox 99 07/25/21 09:44 Intake & Output 07/24/21 07/25/21 07/25/21 18:59 06:59 18:59 Intake Total 783.66 95.932 530.408 Balance 783.66 95.932 530.408 Weight 99.79 kg 103 kg Intake: IV 200 Intake, IV Titration 63.66 95.932 90.408 Amount Heparin Sod,Pork in 0.45% 63.66 95.932 90.408 NaCl 25,000 unit In 0.45 % NaCl 1 250ml.bag @ 10. 02 UNITS/KG/HR 9.999 mls/ hr IV .Q24H [facility] Rx#: [id number] Oral 720 240 Other: Voiding Method Toilet Toilet Urinal Urinal # Voids 2 1 - Exam PHYSICAL EXAMINATION: Patient is lying in the bed comfortably, no acute distress, awake alert and oriented.. HEENT: Normocephalic. Neck is supple. Pupils reactive. Nostrils clear. Oral cavity is moist. Neck reveals no JVD, carotid bruits, or thyromegaly. CHEST EXAMINATION: Trachea is central. Symmetrical expansion. Lung juan clear to auscultation and percussion. CARDIAC: Normal S1, S2 with no gallops. No murmurs ABDOMEN: Soft. Bowel sounds normal. No organomegaly. No abdominal bruits. Extremities: reveal no edema. No clubbing or cyanosis Neurologically awake, alert, oriented x3 with well-coordinated movements. No focal deficits noted Skin: No rash or skin lesions. Psychiatric: Cooperative. Nonsuicidal Musculoskeletal: No joint swelling or deformity. Normal range of motion. - Labs CBC & Chem 7: 07/25/21 14:22 07/25/21 14:22 Labs: Abnormal Lab Results - Last 24 Hours (Table) 07/24/21 07/24/21 07/25/21 Range/Units 16:58 16:58 00:44 RBC (4.30-5.90) m/uL Hgb (13.0-17.5) gm/dL Hct (39.0-53.0) % APTT 31.1 H 38.1 H (22.0-30.0) sec Sodium (137-145) mmol/L Glucose (74-99) mg/dL POC Glucose (mg/dL) (75-99) mg/dL Troponin I 2.820 H* (0.000-0.034) ng/mL 07/25/21 07/25/21 07/25/21 Range/Units 06:01 14:22 14:22 RBC 4.09 L (4.30-5.90) m/uL Hgb 12.5 L (13.0-17.5) gm/dL Hct 36.6 L (39.0-53.0) % APTT (22.0-30.0) sec Sodium 131 L (137-145) mmol/L Glucose 271 H (74-99) mg/dL POC Glucose (mg/dL) 138 H (75-99) mg/dL Troponin I (0.000-0.034) ng/mL Assessment and Plan Assessment: Acute non-ST elevated [place] Peripheral vascular disease with history of atherectomy of his anterior tibial artery Hypertension Diabetes type 2 [id number] Hyperlipidemia History of [place] and cardiac catheterization. No PCI Bilateral peripheral neuropathy Anxiety Plan: Patient is being followed on telemetry monitoring. Patient was admitted to hospital due to chest pain and elevated troponin level. Was started on heparin drip and 2D echocardiogram was ordered. 2D echocardiogram showed ejection fraction 55 to 60% and mild concentric left ventricular hypertrophy. Patient was seen by cardiology and was taken to cardiac catheterization. Patient is s/p stent placement cardiology is following. Continue with dual antiplatelet and Coreg. Cardiology is following. Continue monitoring. Follow closely.
[2021-07-25 22:52] LABS: Chol/HDL Ratio 5.02 Ratio; LDL Cholesterol,Calculated 166.8 mg/dL (0.0-131.0)
[2021-07-26] MEDS: NITROGLYCERIN OINT 1 INCH/GM PACKET TOPICAL SCH ×3 (04:35→11:20)
[2021-07-26] MEDS: SODIUM CHLORIDE 0.9% 1,000 ML in EMPTY BAG 1 BAG IV SCH ×2 (04:38→05:37)
[2021-07-26] MEDS: INSULIN ASPART (NovoLOG) 100 UNIT/ML VIAL SQ SCH ×2 (05:55→11:49)
[2021-07-26 06:01] LABS: Glucose,Whole Blood 129 mg/dL (75-99)
[2021-07-26] MEDS: carvediloL 3.125 MG TAB PO SCH (06:31)
[2021-07-26] MEDS ORDERED: HEPARIN SODIUM,PORCINE 10,000 UNIT in SODIUM CHLORIDE 0.9% 1,000 ML IRRIGATION PRN (07:00)
[2021-07-26] MEDS ORDERED: HEPARIN SODIUM,PORCINE 2,500 UNIT in SODIUM CHLORIDE 0.9% 250 ML IRRIGATION PRN (07:00)
[2021-07-26] MEDS ORDERED: ATORVASTATIN 80 MG TAB PO SCH (09:00)
[2021-07-26] MEDS ORDERED: ASPIRIN 81 MG PO SCH (09:00)
[2021-07-26] MEDS: GLIMEPIRIDE 1 MG TAB PO SCH (09:04)
[2021-07-26] MEDS: CLOPIDOGREL 75 MG TAB PO SCH (09:04)
[2021-07-26] MEDS: LOSARTAN 50 MG TAB PO SCH (09:04)
[2021-07-26 09:40] VITALS: TEMP 97.8
[2021-07-26 10:46] LABS: Basophils % (A) 0 %; Eosinophils # (A) 0.2 k/uL (0-0.7); Eosinophils % (A) 3 %; HCT 36.1 % (39.0-53.0); HGB 12.3 gm/dL (13.0-17.5); Lymphocytes # (A) 1.4 k/uL (1.0-4.8); Lymphocytes % (A) 20 %; MCH 30.5 pg (25.0-35.0); MCHC 34.1 g/dL (31.0-37.0); MCV 89.4 fL (80.0-100.0); Mean Platelet Volume 6.9; Monocytes # (A) 0.5 k/uL (0-1.0); Monocytes % (A) 7 %; Neutrophils # (A) 4.9 k/uL (1.3-7.7); Neutrophils % (A) 68 %; Platelet Count 295 k/uL (150-450); RBC 4.03 m/uL (4.30-5.90); WBC 7.3 k/uL (3.8-10.6)
[2021-07-26] MEDS: SODIUM CHLORIDE 0.9% 1,000 ML IV SCH (11:19)
[2021-07-26] MEDS: HEPARIN SOD,PORK IN 0.45% NACL 25,000 UNIT in 0.45% NACL 1 250ML.BAG IV SCH (11:19)
[2021-07-26 11:45] LABS: Glucose,Whole Blood 131 mg/dL (75-99)
[2021-07-26 11:50] LABS: Potassium 4.4 mmol/L (3.5-5.1)
[2021-07-26 11:51] LABS: Calcium 8.7 mg/dL (8.4-10.2)
[2021-07-26 13:25] VITALS: BP 150/90; PULSE 67
[2021-07-26 14:02] VITALS: BMI 31.6
--- NOTE | 2021-07-26 14:42 | PN ---
PROGRESS NOTE Mr. Hook is status post PTCA and stenting of RCA by Dr. Casarez yesterday. His right radial site is clean and dry with a good pulse. He is doing well. No chest pain. EKG and blood work is normal. Vital signs stable. No JVD. S1, S2 heard normally. Lungs are clear. Abdomen is soft, nontender. Lower extremities reveal normal pulses. No edema. Central nervous system is normal. IMPRESSION: 1. Non-ST elevation myocardial infarction, status post RCA PCI. 2. Hypertension. 3. Hyperlipidemia. RECOMMENDATIONS: I am recommending the patient can be discharged on current medications including dual antiplatelet therapy and we will see Dr. Clay in the office in about 1 week. Discharge instructions regarding activity and medications were given. Patient understands all details and wishes to proceed with instructions as advised. MMODL / JUANCARLOSN: [id number] /
--- NOTE | 2021-07-26 15:23 | P.DS ---
Providers Date of admission: 07/24/21 10:29 Attending physician: Ronen Richardson Consults: 07/24/21 10:28 Consult Physician Urgent Consulting Provider: Cardiology Lilia Consult Reason/Comments: Non-STEMI Do you want consulting provider notified?: Yes 07/25/21 12:22 Consult Physician Routine Consulting Provider: Alexei Rodrigues Consult Reason/Comments: Post Interventional patient Do you want consulting provider notified?: Already Contacted Primary care physician: [facility] Course: Final diagnoses Acute non-ST elevated MS Peripheral vascular disease with history of atherectomy of his anterior tibial artery Hypertension Diabetes type 2 [id number] Hyperlipidemia History of MS and cardiac catheterization. No PCI Bilateral peripheral neuropathy Anxiety Discharge disposition Patient is cleared by cardiology services for discharge on aspirin, Plavix, Lipitor, losartan, Coreg s/p stent to the RCA. Follow-up with cardiology and PCP. Hospital course This is a pleasant 35-year-old male who was admitted to the hospital with complaints of intermittent chest pain since last . Apparently he was at a when he had a chest pain initially and then it was more of a discomfort, since then hes had intermittent chest pain lasting about 10 minutes associated with minimal shortness of breath. Denies any nausea vomiting, palpitations. He denied any radiation of the pain. There is no leg swelling no recent illness, denies any headache or dizziness or lightheadedness. Patient denies any cough or sputum production. Past medical history significant for peripheral vascular disease status post gastrectomy, history of cardiac catheterization, history of MS, hypertension, diabetes mellitus type 2, hyperlipidemia, bilateral lower extremity neuropathy and anxiety. Chest x-ray at admission shows no acute pulmonary process, he is in normal sinus rhythm. Troponin elevated at 0.13, 1.63 and 2.82. Covid PCR is not detected. Other labs on admission showed white count 9.7, hemoglobin 14.3, INR 0.9, sodium 135, potassium 4.1, chloride 103, bicarb is 26, BUN 20 and creatinine 1.1. His blood sugars are in the 160s. Lipid panel shows a cholesterol level of 246, LDL of 166, triglyceride 139 and HDL of 48. Patient was started on high-dose Lipitor, pravastatin was discontinued. We did discuss lifestyle modifications with patient in the form of diet control. Patient was taken to the cardiac [facility] on 07/25 and had a stent to his RCA. Echocardiogram showed an EF of 55-60% with mild concentric left ventricular hypertrophy. Vital signs this admission show blood pressure of 150/90, sinus rhythm 67, afebrile at 97% on room air. 07/26/2021 Patient is evaluated today at the bedside, he denies any chest pain, palpitations. He denies any cough or shortness of breath. His are clear to auscultation, S1-S2 present, focal neurological exam is negative. Patient is cleared by cardiology for discharge. Patient is agreeable to this. Labs today show hemoglobin of 12.3, sodium level of 133, BUN 16, creatinine 1.21. Blood sugars are controlled in the 130s. Please see medication reconciliation for list of current medications. Thank you for allowing us to participate in the care of this patient. Patient Condition at Discharge: Good Plan - Discharge Summary Discharge Rx Participant: Yes New Discharge Prescriptions: New Nitroglycerin Sl Tabs [Nitrostat] 0.4 mg SUBLINGUAL Q5M PRN #25 tab PRN Reason: Chest Pain Aspirin 81 mg PO DAILY 30 Days #30 tab Atorvastatin [Lipitor] 80 mg PO DAILY 30 Days #30 tab Continue Clopidogrel [Plavix] 75 mg PO DAILY #30 tab Losartan Potassium 50 mg PO DAILY Carvedilol [Coreg] 3.125 mg PO BID-W/MEALS Discontinued Simvastatin [Zocor] 10 mg PO HS No Action metFORMIN HCL [Glucophage] 1,000 mg PO BID-W/MEALS Glimepiride [Amaryl] 1 mg PO DAILY Discharge Medication List Glimepiride [Amaryl] 1 mg PO DAILY 01/12/21 [History] metFORMIN HCL [Glucophage] 1,000 mg PO BID-W/MEALS 01/12/21 [History] Losartan Potassium 50 mg PO DAILY 02/25/21 [History] Carvedilol [Coreg] 3.125 mg PO BID-W/MEALS 05/03/21 [History] Aspirin 81 mg PO DAILY 30 Days #30 tab 07/26/21 [Rx] Atorvastatin [Lipitor] 80 mg PO DAILY 30 Days #30 tab 07/26/21 [Rx] Clopidogrel [Plavix] 75 mg PO DAILY #30 tab 07/26/21 [Rx] Nitroglycerin Sl Tabs [Nitrostat] 0.4 mg SUBLINGUAL Q5M PRN #25 tab 07/26/21 [Rx] Follow up Appointment(s)/Referral(s): Marlen Hatch MD [Primary Care Provider] - 07/29/21 1:30 pm Yulissa Clay MD [STAFF PHYSICIAN] - 1 Week (cardiology office will contact patient to set up follow up appointment) Patient Instructions/Handouts: *Surgery [facility] - After Heart Catheterization - Mixer Runner Instructions, Heart Attack (DC), Heart Healthy Diet (DC) Discharge Disposition: HOME SELF-CARE
== END 2021-07-26 14:43 | disposition home or self-care (01) ==
LOC: EC 09:10 → 3SCARD 10:29 → INTOOBSV 10:29 → 3SCARD 18:29 → UNDODISIN 07-26 14:43
PROVIDERS: ADMIT Hospitalist; ATTEND Hospitalist
PROC: 027034Z Dilation of Coronary Artery, One Artery with Drug-eluting Intraluminal Device, Percutaneous Approach (ICD-10-PCS; principal; 2021-07-24)
PROC: 4A033BC Measurement of Arterial Pressure, Coronary, Percutaneous Approach (ICD-10-PCS; 2021-07-24)
PROC: B2101ZZ Fluoroscopy of Single Coronary Artery using Low Osmolar Contrast (ICD-10-PCS; 2021-07-24)
PROC: 4A023N7 Measurement of Cardiac Sampling and Pressure, Left Heart, Percutaneous Approach (ICD-10-PCS; 2021-07-25 11:00)
PROC: B2151ZZ Fluoroscopy of Left Heart using Low Osmolar Contrast (ICD-10-PCS; 2021-07-25 11:00)
DX: I21.4 Non-ST elevation (NSTEMI) myocardial infarction (principal); I25.10 Atherosclerotic heart disease of native coronary artery without angina pectoris; I10 Essential (primary) hypertension; E11.51 Type 2 diabetes mellitus with diabetic peripheral angiopathy without gangrene; I08.1 Rheumatic disorders of both mitral and tricuspid valves; E78.00 Pure hypercholesterolemia, unspecified; E78.5 Hyperlipidemia, unspecified; E11.42 Type 2 diabetes mellitus with diabetic polyneuropathy; F41.9 Anxiety disorder, unspecified; I25.2 Old myocardial infarction; L30.9 Dermatitis, unspecified; S91.102A Unspecified open wound of left great toe without damage to nail, initial encounter; E66.9 Obesity, unspecified; Z68.31 Body mass index [BMI] 31.0-31.9, adult; Z20.822 Contact with and (suspected) exposure to COVID-19; Z79.02 Long term (current) use of antithrombotics/antiplatelets; Z79.84 Long term (current) use of oral hypoglycemic drugs; Z79.899 Other long term (current) drug therapy; Z86.14 Personal history of Methicillin resistant Staphylococcus aureus infection; Z86.79 Personal history of other diseases of the circulatory system; Z86.711 Personal history of pulmonary embolism; Z86.718 Personal history of other venous thrombosis and embolism; Z98.890 Other specified postprocedural states; Z82.49 Family history of ischemic heart disease and other diseases of the circulatory system
CPT/HCPCS: 96366 ×3; 96376; 96361; 96365; 99291; 36415; 94760; 93005; 93306; 93571; 93454; 80061; 80053; 80048 ×2; 82565; 83735; 84484; 85025 ×3; 85610; 85730 ×2; 87635; 71046; G0378 ×3; C9600; C1769 ×4; C1887 ×2; C1894; C1725; C1874; J2250; J2001; J3010; J1644 ×3; Q9967 ×2; 96360

== ENCOUNTER 2022-01-03 08:48 | Emergency (ER) | payer OTHER ==
[2022-01-03 15:01] LABS: Basophils # (A) 0.1 k/uL (0-0.2); Basophils % (A) 1 %; Eosinophils # (A) 0.2 k/uL (0-0.7); Eosinophils % (A) 2 %; HCT 37.5 % (39.0-53.0); Lymphocytes # (A) 1.8 k/uL (1.0-4.8); Lymphocytes % (A) 19 %; MCH 30.6 pg (25.0-35.0); MCHC 34.6 g/dL (31.0-37.0); MCV 88.4 fL (80.0-100.0); Mean Platelet Volume 6.9; Monocytes # (A) 0.5 k/uL (0-1.0); Monocytes % (A) 5 %; Neutrophils # (A) 6.9 k/uL (1.3-7.7); Neutrophils % (A) 72 %; Platelet Count 353 k/uL (150-450); RBC 4.24 m/uL (4.30-5.90); RDW 12.1 % (11.5-15.5); WBC 9.6 k/uL (3.8-10.6)
[2022-01-03 15:52] LABS: Albumin 3.5 g/dL (3.5-5.0); Calcium 9.1 mg/dL (8.4-10.2); Potassium 4.2 mmol/L (3.5-5.1); Total Bilirubin 0.6 mg/dL (0.2-1.3); Total Protein 6.9 g/dL (6.3-8.2)
[2022-01-03 16:20] LABS: Appearance,Urine Clear (Clear); Bilirubin,Urine Negative (Negative); Blood,Urine Small (Negative); Color,Urine Light Yellow; Glucose,Urine (UA) Trace (Negative); Ketones,Urine Negative (Negative); Leukocyte Esterase,Urine Negative (Negative); Nitrite,Urine Negative (Negative); Protein,Urine 2+ (Negative); RBC,Urine 6 /hpf (0-5); Specific Gravity,Urine 1.012 (1.001-1.035); Urobilinogen,Urine <2.0 mg/dL (<2.0); WBC,Urine <1 /hpf (0-5)
[2022-01-03 16:56] LABS: Erythrocyte Sedimentation Rate 85 mm/hr (0-15)
--- NOTE | 2022-01-03 20:54 | XR ---
EXAMINATION TYPE: XR foot complete LT DATE OF EXAM: 01/03/2022 COMPARISON: NONE HISTORY: Ulcer. Diabetes. TECHNIQUE: Previews FINDINGS: There is some soft tissue swelling at the tip of the second toe. There is some deformity an d soft tissue loss on the lateral aspect of the distal phalanx of the big toe. No focal bone destruct ion. Metatarsals are intact. IMPRESSION: There is some soft tissue deformities of the big toe and the second toe consistent with s welling and ulceration. No focal bone destruction.
== END 2022-01-03 14:40 | disposition other institution (70) ==
LOC: EC 08:48
DX: E11.621 Type 2 diabetes mellitus with foot ulcer (principal); L97.529 Non-pressure chronic ulcer of other part of left foot with unspecified severity; E11.40 Type 2 diabetes mellitus with diabetic neuropathy, unspecified; I10 Essential (primary) hypertension
CPT/HCPCS: 36415; 80053; 81001; 85025; 85652; 99284

== ENCOUNTER → 2022-01-18 | Outpatient (CLI) | payer OTHER ==
--- NOTE | 2022-01-18 22:08 | XR ---
EXAMINATION TYPE: XR foot complete 3 views LT DATE OF EXAM: 01/18/2022 Comparison: 01/03/2022 Clinical History: 36-year-old male L97.522 Non pressure ulcer of left foot Findings: Unchanged truncated tuft of the great toe and mild degenerative change first MTP joint. Development o f some subtle cortical lucency to the tip of the second distal phalangeal tuft on the oblique view th ere is associated soft tissue swelling. Some vascular calcifications are noted. There may be some und erlying pes planus that would be better assessed with a lateral weightbearing view. No acute fracture , subluxation, or dislocation. No discrete lytic destruction. Impression: 1. Unchanged bony deformity to the tuft of the great toe compared to 01/03/2022. 2. On the oblique view, there appears to be the development of subtle cortical lucency to the tuft of the second toe with associated soft tissue swelling. If there is an ulcer here, early osteomyelitis is difficult to exclude. 3. Mild first MTP joint OA. 4. Possible underlying pes planus. If further evaluation is indicated, weightbearing lateral view can be performed. 5. Vascular calcifications suggest underlying diabetes and/or chronic kidney disease. Clinically milagros elate.
== END | disposition home or self-care (01) ==
LOC: RADXRMAIN 15:34
PROVIDERS: ATTEND Thoracic Surgery (Cardiothoracic Vascular Surgery)
DX: M19.072 Primary osteoarthritis, left ankle and foot (principal); M20.5X2 Other deformities of toe(s) (acquired), left foot

== ENCOUNTER 2023-10-30 16:19 | Inpatient (IN) | payer OTHER ==
[2023-10-30] MEDS ORDERED: VANCOMYCIN IV PER PHARMACY 1 EACH MISC MISCELLANE PRN (16:53)
[2023-10-30] MEDS: SODIUM CHLORIDE 0.9% 500 ML 500 ML IV SCH (17:35)
[2023-10-30] MEDS: PIPERACILLIN-TAZOBACTAM 3.375 GM in SODIUM CHLORIDE 0.9% 100 ML IVPB STA (17:35)
--- NOTE | 2023-10-30 17:50 | XR ---
PROCEDURE: XR foot complete LT - 3V DATE AND TIME: 10/30/2023 5:35 PM CLINICAL INDICATION: PHH; Wound left foot TECHNIQUE: 3 nonweightbearing views were obtained. COMPARISON: 01/18/2022 FINDINGS / IMPRESSION: There is evidence of diffuse soft tissue swelling of the forefoot and midfoot, extending to involve t he hindfoot. No focal soft tissue findings other than atherosclerotic arterial calcifications. No fracture or malalignment. No focal skeletal lesions, other than stable tuft deformity of the great toe. Scattered mild osteoarthrosis changes are seen at several articulations.
[2023-10-30 18:04] LABS: Basophils # (A) 0.1 k/uL (0-0.2); Basophils % (A) 0 %; Eosinophils # (A) 0.3 k/uL (0-0.7); Eosinophils % (A) 2 %; HCT 33.5 % (39.0-53.0); HGB 11.1 gm/dL (13.0-17.5); Lymphocytes # (A) 1.5 k/uL (1.0-4.8); Lymphocytes % (A) 10 %; MCH 29.4 pg (25.0-35.0); MCHC 33.1 g/dL (31.0-37.0); MCV 88.9 fL (80.0-100.0); Mean Platelet Volume 7.1; Monocytes # (A) 0.8 k/uL (0-1.0); Monocytes % (A) 5 %; Neutrophils # (A) 12.1 k/uL (1.3-7.7); Neutrophils % (A) 81 %; Platelet Count 466 k/uL (150-450); RBC 3.77 m/uL (4.30-5.90); WBC 14.9 k/uL (3.8-10.6)
[2023-10-30 18:14] LABS: ALT 13 U/L (4-49); AST 20 U/L (17-59); African American GFR (CKD) 37 (>60 ml/min/1.73 sqM); Albumin 3.1 g/dL (3.5-5.0); Alkaline Phosphatase 125 U/L (38-126); Anion Gap 7 mmol/L; Blood Urea Nitrogen 23 mg/dL (9-20); Calcium 8.3 mg/dL (8.4-10.2); Carbon Dioxide 26 mmol/L (22-30); Chloride 102 mmol/L (98-107); Glucose 258 mg/dL (74-99); Non-African American GFR(CKD) 32 (>60 ml/min/1.73 sqM); Potassium 4.3 mmol/L (3.5-5.1); Sodium 135 mmol/L (137-145); Total Bilirubin 0.4 mg/dL (0.2-1.3); Total Protein 6.6 g/dL (6.3-8.2)
[2023-10-30 18:22] LABS: Partial Thromboplastin Time 26.7 sec (22.0-30.0); Prothrombin Time 10.7 sec (10.0-12.5)
--- NOTE | 2023-10-30 18:47 | ED ---
General Adult HPI - General Chief complaint: Extremity Problem,Nontraumatic Stated complaint: Infection L Foot Time Seen by Provider: 10/30/23 16:30 Source: patient, RN notes reviewed, old records reviewed Mode of arrival: ambulatory Limitations: no limitations - History of Present Illness Initial comments: This is a 38-year-old male who presents to the emergency department complaining of a wound on the plantar surface of his left foot. Patient states has been ongoing for quite a while but lately it has been getting worse and has been more drainage. Patient states he went to see his coronary clinical specialist today coronary clinical specialist wanted to come to the hospital and be admitted for IV antibiotics. Patient denies any fever or chills. Patient Nuys any other symptoms at this time. - Related Data Home Medications Medication Instructions Recorded Confirmed No Known Home Medications 10/30/23 10/30/23 Allergies Allergy/AdvReac Type Severity Reaction Status Date / Time No Known Allergies Allergy Verified 10/30/23 18:55 Review of Systems ROS Statement: Those systems with pertinent positive or pertinent negative responses have been documented in the HPI. ROS Other: All systems not noted in ROS Statement are negative. Past Medical History Past Medical History: Coronary Artery Disease (CAD), Diabetes Mellitus, Hyperlipidemia, Hypertension, Myocardial Infarction ([place]), Skin Disorder, Vascular Disorder, Skin Disorder, Vascular Disorder Additional Past Medical History / Comment(s): neuropathy melvin legs, eczema, wound left great toe(on antibiotics currently)-goes to [facility] wound center, poor circulation melvin legs, eczema, Last Myocardial Infarction Date:: 2014 History of Any Multi-Drug Resistant Organisms: None Reported Date of last positivie culture/infection: 01/21/21 MDRO Source:: toe Past Surgical History: Heart Catheterization Additional Past Surgical History / Comment(s): laser eye surgery x 2, oral surgery, angiogram Past Anesthesia/Blood Transfusion Reactions: Motion Sickness Past Psychological History: Anxiety Smoking Status: Never smoker Past Alcohol Use History: None Reported Past Drug Use History: None Reported - Past Family History Mother Family Medical History: No Reported History Father Family Medical History: Coronary Artery Disease (CAD), Hypertension General Exam - General Exam Comments Initial Comments: GENERAL: Patient is well-developed and well-nourished. Patient is nontoxic and well- hydrated and is in mild distress. ENT: Neck is soft and supple. No significant lymphadenopathy is noted. Oropharynx is clear. Moist mucous membranes. Neck has full range of motion without eliciting any pain. EYES: The sclera were anicteric and conjunctiva were pink and moist. Extraocular movements were intact and pupils were equal round and reactive to light. Eyelids were unremarkable. PULMONARY: Unlabored respirations. Good breath sounds bilaterally. No audible rales rhonchi or wheezing was noted. CARDIOVASCULAR: There is a regular rate and rhythm without any murmurs gallops or rubs. ABDOMEN: Soft and nontender with normal bowel sounds. SKIN: Skin is clear with no lesions or rashes and otherwise unremarkable. NEUROLOGIC: Patient is alert and oriented x3. Cranial nerves II through XII are grossly intact. Motor and sensory are also intact. Normal speech, volume and content. Symmetrical smile. MUSCULOSKELETAL: Patient has an open wound on the plantar surface of his left foot that is draining. PSYCHIATRIC: Normal psychiatric evaluation. Limitations: no limitations Course Vital Signs 10/30/23 16:23 Temperature 98.1 F Pulse Rate 111 H Respiratory 18 Rate Blood Pressure 163/104 O2 Sat by Pulse 100 Oximetry Medical Decision Making - Medical Decision Making EKG was interpreted by myself. EKG shows a sinus rhythm at 99 bpm CA interval 157 QRS is 85 QT interval 318 QTc is 375. Patient EKG shows no ST segment ovation or depression. Was pt. sent in by a medical professional or institution (FRIDA Echols, EXPERIMENTAL FLIGHT TEST MECHANIC, urgent care, hospital, or half-way...) When possible be specific @ -Patient was sent in by his podiatry Did you speak to anyone other than the patient for history (EMS, parent, family, police, friend...)? What history was obtained from this source @ -[No] Did you review nursing and triage notes (agree or disagree)? Why? @ -[I reviewed and agree with nursing and triage notes] Were old charts reviewed (outside hosp., previous admission, EMS record, old EKG, old radiological studies, urgent care reports/EKG's, half-way records)? Report findings @ -I reviewed prior charts and prior lab work on this patient Differential Diagnosis (chest pain, altered mental status, abdominal pain women, abdominal pain men, vaginal bleeding, weakness, fever, dyspnea, syncope, headache, dizziness, GI bleed, back pain, seizure, CVA, palpatations, mental health, musculoskeletal)? @ -Osteomyelitis, cellulitis, infected wound, healing wound, this is not an all- inclusive list EKG interpreted by me (3pts min.). @ -[As above] X-rays interpreted by me (1pt min.). @ -X-ray shows no acute abnormality CT interpreted by me (1pt min.). @ -[None done] U/S interpreted by me (1pt. min.). @ -[None done] What testing was considered but not performed or refused? (CT, X-rays, U/S, labs)? Why? @ -[None] What meds were considered but not given or refused? Why? @ -[None] Did you discuss the management of the patient with other professionals (professionals i.e. , PA, EXPERIMENTAL FLIGHT TEST MECHANIC, lab, RT, psych nurse, drug abuse social worker, sales representative groceries, teacher, licensing officer, cyanide case hardener)? Give summary @ -I spoke with Dr. Richardson he agreed to admit the patient Was smoking cessation discussed for >3mins.? @ -[No] Was critical care preformed (if so, how long)? @ -[No] Were there social determinants of health that impacted care today? How? (Homelessness, low income, unemployed, alcoholism, drug addiction, transportation, low edu. Level, literacy, decrease access to med. care, custodial, rehab)? @ -[No] Was there de-escalation of care discussed even if they declined (Discuss DNR or withdrawal of care, Hospice)? DNR status @ -[No] What co-morbidities impacted this encounter? (DM, HTN, Smoking, COPD, CAD, Cancer, CVA, ARF, Chemo, Hep., AIDS, mental health diagnosis, sleep apnea, morbid obesity)? @ -[None] Was patient admitted / discharged? Hospital course, mention meds given and route, prescriptions, significant lab abnormalities, going to OR and other pertinent info. @ -Patient's wound looks like it was draining some pussy looking fluid so I started the patient on Vanco and Zosyn Undiagnosed new problem with uncertain prognosis? @ -[No] Drug Therapy requiring intensive monitoring for toxicity (Heparin, Nitro, Insulin, Cardizem)? @ -[No] Were any procedures done? @ -[No] Diagnosis/symptom? @ -Infected wound foot Acute, or Chronic, or Acute on Chronic? @ -Acute Uncomplicated (without systemic symptoms) or Complicated (systemic symptoms)? @ -Complicated Side effects of treatment? @ -[No] Exacerbation, Progression, or Severe Exacerbation? @ -[No] Poses a threat to life or bodily function? How? (Chest pain, [place], CA, pneumonia, PE, COPD, DKA, ARF, appy, cholecystitis, CVA, Diverticulitis, Homicidal, Suicidal, threat to staff... and all critical care pts) @ -Yes this could lead to sepsis and endorgan dysfunction - Lab Data Result diagrams: 10/30/23 17:26 10/30/23 17: Lab Results 10/30/23 10/30/23 10/30/23 Range/Units 17:26 17: 17: WBC 14.9 H (3.8-10.6) k/uL RBC 3.77 L (4.30-5.90) m/uL Hgb 11.1 L (13.0-17.5) gm/dL Hct 33.5 L (39.0-53.0) % MCV 88.9 (80.0-100.0) fL MCH 29.4 (25.0-35.0) pg MCHC 33.1 (31.0-37.0) g/dL RDW 12.0 (11.5-15.5) % Plt Count 466 H (150-450) k/uL MPV 7.1 Neutrophils % 81 % Lymphocytes % 10 % Monocytes % 5 % Eosinophils % 2 % Basophils % 0 % Neutrophils # 12.1 H (1.3-7.7) k/uL Lymphocytes # 1.5 (1.0-4.8) k/uL Monocytes # 0.8 (0-1.0) k/uL Eosinophils # 0.3 (0-0.7) k/uL Basophils # 0.1 (0-0.2) k/uL PT 10.7 (10.0-12.5) sec INR 1.0 (<1.2) APTT 26.7 (22.0-30.0) sec Sodium 135 L (137-145) mmol/L Potassium 4.3 (3.5-5.1) mmol/L Chloride 102 (98-107) mmol/L Carbon Dioxide 26 (22-30) mmol/L Anion Gap 7 mmol/L BUN 23 H (9-20) mg/dL Creatinine 2.44 H (0.66-1.25) mg/dL Est GFR (CKD-EPI)AfAm 37 (>60 ml/min/1.73 sqM) Est GFR (CKD-EPI)NonAf 32 (>60 ml/min/1.73 sqM) Glucose 258 H (74-99) mg/dL Plasma Lactic Acid Titus (0.7-2.0) mmol/L Calcium 8.3 L (8.4-10.2) mg/dL Total Bilirubin 0.4 (0.2-1.3) mg/dL AST 20 (17-59) U/L ALT 13 (4-49) U/L Alkaline Phosphatase 125 (38-126) U/L Total Protein 6.6 (6.3-8.2) g/dL Albumin 3.1 L (3.5-5.0) g/dL 10/30/23 Range/Units 17:26 WBC (3.8-10.6) k/uL RBC (4.30-5.90) m/uL Hgb (13.0-17.5) gm/dL Hct (39.0-53.0) % MCV (80.0-100.0) fL MCH (25.0-35.0) pg MCHC (31.0-37.0) g/dL RDW (11.5-15.5) % Plt Count (150-450) k/uL MPV Neutrophils % % Lymphocytes % % Monocytes % % Eosinophils % % Basophils % % Neutrophils # (1.3-7.7) k/uL Lymphocytes # (1.0-4.8) k/uL Monocytes # (0-1.0) k/uL Eosinophils # (0-0.7) k/uL Basophils # (0-0.2) k/uL PT (10.0-12.5) sec INR (<1.2) APTT (22.0-30.0) sec Sodium (137-145) mmol/L Potassium (3.5-5.1) mmol/L Chloride (98-107) mmol/L Carbon Dioxide (22-30) mmol/L Anion Gap mmol/L BUN (9-20) mg/dL Creatinine (0.66-1.25) mg/dL Est GFR (CKD-EPI)AfAm (>60 ml/min/1.73 sqM) Est GFR (CKD-EPI)NonAf (>60 ml/min/1.73 sqM) Glucose (74-99) mg/dL Plasma Lactic Acid Titus 0.8 (0.7-2.0) mmol/L Calcium (8.4-10.2) mg/dL Total Bilirubin (0.2-1.3) mg/dL AST (17-59) U/L ALT (4-49) U/L Alkaline Phosphatase (38-126) U/L Total Protein (6.3-8.2) g/dL Albumin (3.5-5.0) g/dL Disposition Clinical Impression: Infected wound Disposition: ADMITTED IP TO THIS HOSP Referrals: Marlen Hatch MD [Primary Care Provider] - 1-2 days Time of Disposition: 18:50
[2023-10-30] MEDS: VANCOMYCIN 1,500 MG in SODIUM CHLORIDE 0.9% 500 ML 500 ML IVPB STA (18:49)
[2023-10-30] MEDS: SODIUM CHLORIDE 0.9% 1,000 ML IV ONE (21:58)
[2023-10-31] MEDS: PIPERACILLIN-TAZOBACTAM 3.375 GM in SODIUM CHLORIDE 0.9% 100 ML IVPB SCH (00:07)
[2023-10-31 09:49] LABS: African American GFR (CKD) 38 (>60 ml/min/1.73 sqM); Non-African American GFR(CKD) 33 (>60 ml/min/1.73 sqM)
[2023-10-31] MEDS ORDERED: DEXTROSE 50% SYRINGE 50 ML IVP PRN ×2 (10:57)
[2023-10-31 11:56] LABS: Glucose,Whole Blood 182 mg/dL (70-110)
[2023-10-31 11:58] LABS: Basophils % (A) 0 %; Eosinophils # (A) 0.4 k/uL (0-0.7); Eosinophils % (A) 4 %; HCT 35.5 % (39.0-53.0); HGB 11.2 gm/dL (13.0-17.5); Hypochromasia Slight; Lymphocytes # (A) 1.5 k/uL (1.0-4.8); Lymphocytes % (A) 13 %; MCH 28.7 pg (25.0-35.0); MCHC 31.6 g/dL (31.0-37.0); MCV 90.8 fL (80.0-100.0); Mean Platelet Volume 7.3; Monocytes # (A) 0.7 k/uL (0-1.0); Monocytes % (A) 6 %; Neutrophils # (A) 8.4 k/uL (1.3-7.7); Neutrophils % (A) 74 %; Platelet Count 545 k/uL (150-450); RBC 3.91 m/uL (4.30-5.90); RDW 12.1 % (11.5-15.5); WBC 11.3 k/uL (3.8-10.6)
[2023-10-31 12:20] LABS: Anion Gap 10 mmol/L; Blood Urea Nitrogen 21 mg/dL (9-20); Calcium 8.5 mg/dL (8.4-10.2); Carbon Dioxide 20 mmol/L (22-30); Chloride 108 mmol/L (98-107); Glucose 119 mg/dL (74-99); Sodium 138 mmol/L (137-145)
[2023-10-31] MEDS: AMPICILLIN-SULBACTAM 3 GM in SODIUM CHLORIDE 0.9% 100 ML IVPB SCH (15:45)
[2023-10-31] MEDS: carvediloL 3.125 MG TAB PO SCH (15:46)
[2023-10-31] MEDS: INSULIN ASPART (NovoLOG) 100 UNIT/ML VIAL SQ SCH (15:46)
[2023-10-31] MEDS: SODIUM CHLORIDE 0.9% 1,000 ML IV SCH (15:49)
--- NOTE | 2023-10-31 15:49 | US ---
EXAMINATION TYPE: US kidneys/renal and bladder DATE OF EXAM: 10/31/2023 COMPARISON: NONE CLINICAL INDICATION: Male, 38 years old with history of ALMA EXAM MEASUREMENTS: Right Kidney: 10.9 x 7.4 x 5.8cm Left Kidney: 11.8 x 4.6 x 5.8cm Right Kidney: No hydronephrosis or masses seen Left Kidney: No hydronephrosis or masses seen Bladder: not fully distended, wnl IMPRESSION: 1. No hydronephrosis. 2. Nondistention of the bladder limits its evaluation.
[2023-10-31] MEDS ORDERED: VANCOMYCIN 1,500 MG in SODIUM CHLORIDE 0.9% 500 ML 500 ML IVPB SCH (16:00)
[2023-10-31 16:38] LABS: Glucose,Whole Blood 170 mg/dL (70-110)
[2023-10-31] MEDS: LIDOCAINE 1% INJ 10MG/ML (20 ML MDV) SQ ONE (17:13)
[2023-10-31] MEDS: COLLAGENASE 250 UNIT/GM OINTMENT 30 GM TUBE TOPICAL SCH (17:13)
[2023-10-31] MEDS: HEPARIN SODIUM,PORCINE 5,000 UNIT/ML 1 ML VIAL SQ SCH (17:17)
[2023-10-31 20:34] LABS: Glucose,Whole Blood 194 mg/dL (70-110)
[2023-10-31] MEDS: ATORVASTATIN 40 MG TAB PO SCH (21:09)
--- NOTE | 2023-10-31 21:46 | P.CONS ---
History of Present Illness - Reason for Consult Consult date: 10/31/23 - History of Present Illness Patient is a 38-year-old -Prydeinig male with a past medical history significant diabetes mellitus hypertension hyperlipidemia [place] coronary artery disease presenting to the hospital for evaluation of increasing pain swelling and redness to the right foot area apparently the patient did have a callus on the plantar aspect of the left foot that has been there for a while however recently patient noticed to have increasing swelling at and redness to the left foot area patient did have diabetic neuropathy hence denies significant pain but complaining of pressure-like sensation with associated swelling redness and did have purulent drainage from the wound on the plantar aspect of the left foot patient was eval by his cloth colorer who advised patient to go to the ER for IV antibiotic therapy on presentation to the hospital patient was afebrile and no fever has been recorded subsequently patient did have white count of 14.9 with a left shift BUN and creatinine are mildly elevated liver enzymes are normal local cultures obtained which are currently pending patient did have a x-ray of the foot no fracture or malalignment patient was started on vancomycin and Zosyn infectious disease was consulted for further management of antibiotic therapy Past Medical History Past Medical History: Coronary Artery Disease (CAD), Diabetes Mellitus, Hyperl ipidemia, Hypertension, Myocardial Infarction ([place]), Skin Disorder, Vascular Disorder, Skin Disorder, Vascular Disorder Additional Past Medical History / Comment(s): neuropathy melvin legs, eczema, wound left great toe(on antibiotics currently)-goes to [facility] wound center, poor cir culation melvin legs, eczema, Last Myocardial Infarction Date:: 2014 History of Any Multi-Drug Resistant Organisms: None Reported Year Discovered:: 01/21/21 MDRO Source:: toe Past Surgical History: Heart Catheterization Additional Past Surgical History / Comment(s): laser eye surgery x 2, oral surgery, angiogram, 2 toes amputated form right foot 06/2023 Past Anesthesia/Blood Transfusion Reactions: Motion Sickness Past Psychological History: Anxiety Smoking Status: Never smoker Past Alcohol Use History: None Reported Past Drug Use History: None Reported Additional Drug Use History / Comment(s): occ. use - Past Family History Mother Family Medical History: No Reported History Father Family Medical History: Coronary Artery Disease (CAD), Hypertension Medications and Allergies Home Medications Medication Instructions Recorded Confirmed Type No Known Home Medications 10/30/23 10/30/23 History Allergies Allergy/AdvReac Type Severity Reaction Status Date / Time No Known Allergies Allergy Verified 10/30/23 18:55 Physical Exam Vitals: Vital Signs Temp Pulse Pulse Resp BP BP Pulse Ox 10/31/23 07:46 97.9 F 84 17 163/101 100 10/31/23 00:09 98.9 F 89 16 145/88 98 10/30/23 16:23 98.1 F 111 H 18 163/104 100 Intake and Output 10/30/23 10/31/23 10/31/23 22:59 06:59 14:59 Other: Weight 97.069 kg 97.069 kg Results CBC & Chem 7: 10/31/23 07:59 10/31/23 07:59 Labs: Abnormal Lab Results - Last 24 Hours (Table) 10/30/23 10/30/23 10/31/23 Range/Units 17:26 17:26 07:59 WBC 14.9 H (3.8-10.6) k/uL RBC 3.77 L (4.30-5.90) m/uL Hgb 11.1 L (13.0-17.5) gm/dL Hct 33.5 L (39.0-53.0) % Plt Count 466 H (150-450) k/uL Neutrophils # 12.1 H (1.3-7.7) k/uL Sodium 135 L (137-145) mmol/L BUN 23 H (9-20) mg/dL Creatinine 2.44 H 2.39 H (0.66-1.25) mg/dL Glucose 258 H (74-99) mg/dL Calcium 8.3 L (8.4-10.2) mg/dL Albumin 3.1 L (3.5-5.0) g/dL Assessment and Plan Plan: 1patient presented to hospital with extensive left diabetic infection in this patient who did have a callus on the plantar aspect likely infected callus and an abscess and will need to cover for the polymicrobial skye usually associated with diabetic foot infection 2-patient with renal insufficiency high risk of nephrotoxicity from vancomycin and Zosyn combination 3-we will request for the vascular surgery evaluation for debridement of the infected callus and deep culture 4-check inflammatory markers 5-discontinue vancomycin and Zosyn 6-start the patient on Unasyn 3 g every 6 hours We will follow on clinical condition and cultures to further adjust medication if needed Thank you for this consultation we will follow the patient along with you Dictation was produced using [employer] dictation software. please excuse any grammatical, word or spelling errors. Time with Patient: Greater than 30
--- NOTE | 2023-11-01 00:35 | P.HPIM ---
History of Present Illness H&P Date: 10/31/23 Chief Complaint: Foot infection Patient is a 38-year-old male with past medical history of diabetes type 2, CKD stage III, coronary artery disease with prior cardiac catheterization, hypertension, hyperlipidemia, bilateral peripheral neuropathy diabetes and noncompliance with medications presents to ER with complaints of left foot wound on the plantar surface. Patient has been having infection for a while and started draining with purulent discharge for the past 4 to 5 days. 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 Otherwise patient denies any fever or chills. Denies any injury. No complaints of chest pain or shortness of breath. No nausea vomiting abdominal pain or diarrhea. No cough or sputum production. Denies any recent illnesses. X-ray of the foot showed there is evidence of diffuse soft tissue swelling of the forefoot and midfoot., Extending to involve the hindfoot. No focal soft tissue findings other than atherosclerotic arterial calcifications. EKG showed sinus rhythm. Laboratory showed WBC 14.9 hemoglobin 11.1 and platelets 466 Sodium 135 potassium 4.3 chloride 102 bicarb is 26 BUN 23 and creatinine 2.44 and blood sugar 258. Lactic acid 0.8. Liver enzymes are not elevated. On admission blood pressure was 163/104 pulse 111 respiration 18 and pulse ox 100% on room air. Review of Systems Constitutional: Patient denies any fever or chills . no Generalized weakness. Abdomen: Patient denied any nausea or vomiting or abd. pain Cardiovascular: Patient denies any chest pain or short of breath no palpitations. Respiratory: patient denied any cough . no sputum production. No shortness of breath Neurologic: Patient denied any numbness or tingling or headache. Musculoskeletal: Patient denies any complaints of joint swelling or deformity. Skin: Left foot infection with purulent discharge. Psychiatric: Negative Endocrine: No heat or cold intolerance. No recent weight gain. Genitourinary: No dysuria or hematuria. All other 14 point ROS negative except the above Past Medical History Past Medical History: Coronary Artery Disease (CAD), Diabetes Mellitus, Hyperlipidemia, Hypertension, Myocardial Infarction ([place]), Skin Disorder, Vascular Disorder, Skin Disorder, Vascular Disorder Additional Past Medical History / Comment(s): neuropathy melvin legs, eczema, wound left great toe(on antibiotics currently)-goes to [facility] wound center, poor circulation melvin legs, eczema, Last Myocardial Infarction Date:: 2014 History of Any Multi-Drug Resistant Organisms: None Reported Date of last positivie culture/infection: 01/21/21 MDRO Source:: toe Past Surgical History: Heart Catheterization Additional Past Surgical History / Comment(s): laser eye surgery x 2, oral surgery, angiogram, 2 toes amputated form right foot 06/2023 Past Anesthesia/Blood Transfusion Reactions: Motion Sickness Past Psychological History: Anxiety Smoking Status: Never smoker Past Alcohol Use History: None Reported Past Drug Use History: None Reported Additional Drug Use History / Comment(s): occ. use - Past Family History Mother Family Medical History: No Reported History Father Family Medical History: Coronary Artery Disease (CAD), Hypertension Medications and Allergies Home Medications Medication Instructions Recorded Confirmed Type No Known Home Medications 10/30/23 10/30/23 History Allergies Allergy/AdvReac Type Severity Reaction Status Date / Time No Known Allergies Allergy Verified 11/01/23 13:58 Physical Exam Vitals: Vital Signs Temp Pulse Pulse Resp BP BP Pulse Ox 10/31/23 07:46 97.9 F 84 17 163/101 100 10/31/23 00:09 98.9 F 89 16 145/88 98 10/30/23 16:23 98.1 F 111 H 18 163/104 100 Intake and Output 10/30/23 10/31/23 10/31/23 22:59 06:59 14:59 Other: Weight 97.069 kg 97.069 kg PHYSICAL EXAMINATION: Patient is lying in the bed comfortably, no acute distress, awake alert and oriented.. HEENT: Normocephalic. Neck is supple. Pupils reactive. Nostrils clear. Oral cavity is moist. Neck reveals no JVD, carotid bruits, or thyromegaly. CHEST EXAMINATION: Trachea is central. Symmetrical expansion. Lung juan clear to auscultation and percussion. CARDIAC: Normal S1, S2 with no gallops. No murmurs ABDOMEN: Soft. Bowel sounds present. Nontender. No organomegaly. No abdominal bruits. Extremities: reveal no edema. No clubbing or cyanosis Neurologically awake, alert, oriented x3 with well-coordinated movements. No focal deficits noted Skin: No rash or skin lesions. Left foot plantar wound with purulent discharge and swelling. Psychiatric: Coperative. Nonsuicidal, Musculoskeletal: No joint swelling or deformity. Normal range of motion. Results CBC & Chem 7: 11/03/23 05:31 11/02/23 07:49 Labs: Abnormal Lab Results - Last 24 Hours (Table) 10/30/23 10/30/23 10/31/23 Range/Units 17:26 17:26 07:59 WBC 14.9 H (3.8-10.6) k/uL RBC 3.77 L (4.30-5.90) m/uL Hgb 11.1 L (13.0-17.5) gm/dL Hct 33.5 L (39.0-53.0) % Plt Count 466 H (150-450) k/uL Neutrophils # 12.1 H (1.3-7.7) k/uL Sodium 135 L (137-145) mmol/L BUN 23 H (9-20) mg/dL Creatinine 2.44 H 2.39 H (0.66-1.25) mg/dL Glucose 258 H (74-99) mg/dL Calcium 8.3 L (8.4-10.2) mg/dL Albumin 3.1 L (3.5-5.0) g/dL Thrombosis Risk Factor Assmnt - DVT/VTE Prophylaxis DVT/VTE Prophylaxis: Pharmacologic Prophylaxis ordered - Choose All That Apply Any of the Below Risk Factors Present?: Yes Each Factor Represents 1 point: Obesity (BMI >25) Other Risk Factors: No Thrombosis Risk Factor Assessment Total Risk Factor Score: 1 Thrombosis Risk Factor Assessment Level: Low Risk Assessment and Plan Assessment: Left diabetic foot infection on the plantar aspect with purulent discharge/abscess. Sepsis secondary to above Acute on chronic kidney disease stage III with baseline creatinine 1.2-1.9. Creatinine at admission 2.44 Uncontrolled hypertension Diabetes type 2 [id number] History of TN and cardiac catheterization. No PCI Peripheral vascular disease Bilateral peripheral neuropathy diabetic Hyperlipidemia Noncompliance with medications and follow-up. GI and DVT prophylaxis with Pepcid and heparin subcu Plan: Patient will be continued on IV hydration and continue with broad-spectrum antibiotics vancomycin and Zosyn. Follow-up wound cultures. ID is on board and vascular surgery was consulted for possible I&D Nephrology consult for further evaluation. Ultrasound renal was ordered. Follow-up A1c level and continue insulin sliding scale for now. Continue to follow closely. Prognosis is guarded. Time with Patient: Greater than 30
[2023-11-01 05:48] LABS: Glucose,Whole Blood 134 mg/dL (70-110)
[2023-11-01 07:36] LABS: African American GFR (CKD) 39 (>60 ml/min/1.73 sqM); Anion Gap 4 mmol/L; Blood Urea Nitrogen 19 mg/dL (9-20); Calcium 8.3 mg/dL (8.4-10.2); Carbon Dioxide 24 mmol/L (22-30); Chloride 107 mmol/L (98-107); Glucose 114 mg/dL (74-99); Non-African American GFR(CKD) 34 (>60 ml/min/1.73 sqM); Potassium 4.6 mmol/L (3.5-5.1); Sodium 135 mmol/L (137-145)
[2023-11-01] MEDS: FAMOTIDINE 20 MG TAB PO SCH (10:23)
--- NOTE | 2023-11-01 10:26 | P.GSCN ---
History of Present Illness Consult date: 11/01/23 Reason for Consult: Infected foot wound Requesting physician: Aspen Russ History of present illness: This is a pleasant 38-year-old -Martiniquais male who presented to the emergency department with concerns of infected wound to his left foot. Patient states wound began back in June, at that time he had seen a continuous improvement black belt however due to his insurance he did not follow through. He has not had any wound care since June and has been trying to care for himself. He has a history of diabetes mellitus with peripheral neuropathy, hypertension, hyperlipidemia, coronary artery disease status post stenting, and previous right toe amputations follow-up with Dr. Waite. Vascular surgery was consulted for infected wound, with request for surgical debridement. He states he does have tenderness to the bottom of his foot. It has been draining. No fevers or chills. Denies abdominal pain, nausea or vomiting. Foot x-ray reports diffuse soft tissue swelling of the forefoot and midfoot extending to involve the hindfoot. No fracture or malalignment.. No osteomyelitis reported. Review of Systems A 14 point review systems was completed all pertinent positives and negatives as stated in the HPI. Past Medical History Past Medical History: Coronary Artery Disease (CAD), Diabetes Mellitus, Hyperlipidemia, Hypertension, Myocardial Infarction ([place]), Skin Disorder, Vascular Disorder, Skin Disorder, Vascular Disorder Additional Past Medical History / Comment(s): neuropathy melvin legs, eczema, wound left great toe(on antibiotics currently)-goes to [facility] wound center, poor circulation melvin legs, eczema, Last Myocardial Infarction Date:: 2014 History of Any Multi-Drug Resistant Organisms: MRSA Year Discovered:: 01/18/22 MDRO Source:: Toe Left Second Past Surgical History: Heart Catheterization Additional Past Surgical History / Comment(s): laser eye surgery x 2, oral surgery, angiogram, 2 toes amputated form right foot 06/2023 Past Anesthesia/Blood Transfusion Reactions: Motion Sickness Past Psychological History: Anxiety Smoking Status: Never smoker Past Alcohol Use History: None Reported Past Drug Use History: None Reported Additional Drug Use History / Comment(s): occ. use - Past Family History Mother Family Medical History: No Reported History Father Family Medical History: Coronary Artery Disease (CAD), Hypertension Medications and Allergies Home Medications Medication Instructions Recorded Confirmed Type No Known Home Medications 10/30/23 10/30/23 History Allergies Allergy/AdvReac Type Severity Reaction Status Date / Time No Known Allergies Allergy Verified 10/30/23 18:55 Surgical - Exam Vital Signs Temp Pulse Resp BP Pulse Ox 98.1 F 111 H 18 163/104 100 10/30/23 16:23 10/30/23 16:23 10/30/23 16:23 10/30/23 16:23 10/30/23 16:23 General appearance: The patient is alert, oriented, appears in no acute distress. HET: Head is normocephalic and atraumatic. Pupils are equal and reactive. Neck: Supple. Heart: Regular. Lungs: Equal expansion, normal respiratory effort. Abdomen: Soft, nontender, nondistended. Extremities: Left foot swelling, rocker-bottom. Wound to plantar aspect of forefoot, minimal drainage noted. No surrounding erythema. Tender to palpation. Palpable DP pulse. Toenails are thick and long, cracking of skin between toes. Neurological: No focal deficits. Strength and sensation are grossly intact. Results - Labs 10/31/23 07:59 11/01/23 05:28 Abnormal Lab Results - Last 24 Hours (Table) 10/31/23 10/31/23 10/31/23 Range/Units 07:59 07:59 11:54 WBC 11.3 H (3.8-10.6) k/uL RBC 3.91 L (4.30-5.90) m/uL Hgb 11.2 L (13.0-17.5) gm/dL Hct 35.5 L (39.0-53.0) % Plt Count 545 H (150-450) k/uL Neutrophils # 8.4 H (1.3-7.7) k/uL Sodium (137-145) mmol/L Chloride 108 H (98-107) mmol/L Carbon Dioxide 20 L (22-30) mmol/L BUN 21 H (9-20) mg/dL Creatinine 2.39 H (0.66-1.25) mg/dL Glucose 119 H (74-99) mg/dL POC Glucose (mg/dL) 182 H (70-110) mg/dL Calcium (8.4-10.2) mg/dL 10/31/23 10/31/23 11/01/23 Range/Units 16:37 20:32 05:28 WBC (3.8-10.6) k/uL RBC (4.30-5.90) m/uL Hgb (13.0-17.5) gm/dL Hct (39.0-53.0) % Plt Count (150-450) k/uL Neutrophils # (1.3-7.7) k/uL Sodium 135 L (137-145) mmol/L Chloride (98-107) mmol/L Carbon Dioxide (22-30) mmol/L BUN (9-20) mg/dL Creatinine 2.33 H (0.66-1.25) mg/dL Glucose 114 H (74-99) mg/dL POC Glucose (mg/dL) 170 H 194 H (70-110) mg/dL Calcium 8.3 L (8.4-10.2) mg/dL 11/01/23 Range/Units 05:45 WBC (3.8-10.6) k/uL RBC (4.30-5.90) m/uL Hgb (13.0-17.5) gm/dL Hct (39.0-53.0) % Plt Count (150-450) k/uL Neutrophils # (1.3-7.7) k/uL Sodium (137-145) mmol/L Chloride (98-107) mmol/L Carbon Dioxide (22-30) mmol/L BUN (9-20) mg/dL Creatinine (0.66-1.25) mg/dL Glucose (74-99) mg/dL POC Glucose (mg/dL) 134 H (70-110) mg/dL Calcium (8.4-10.2) mg/dL Microbiology - Last 24 Hours (Table) 10/30/23 17:30 Blood Culture - Preliminary Blood 10/30/23 17:55 Blood Culture - Preliminary Blood 10/30/23 17:26 Gram Stain - Preliminary Foot - Left Wound Culture - Preliminary Gram Neg Bacilli Diabetes panel 10/31/23 11/01/23 Range/Units 07:59 05:28 Sodium 138 135 L (137-145) mmol/L Potassium 5.0 4.6 (3.5-5.1) mmol/L Chloride 108 H 107 (98-107) mmol/L Carbon Dioxide 20 L 24 (22-30) mmol/L BUN 21 H 19 (9-20) mg/dL Creatinine 2.39 H 2.33 H (0.66-1.25) mg/dL Glucose 119 H 114 H (74-99) mg/dL Calcium 8.5 8.3 L (8.4-10.2) mg/dL Calcium panel 10/31/23 11/01/23 Range/Units 07:59 05:28 Calcium 8.5 8.3 L (8.4-10.2) mg/dL Pituitary panel 10/31/23 11/01/23 Range/Units 07:59 05:28 Sodium 138 135 L (137-145) mmol/L Potassium 5.0 4.6 (3.5-5.1) mmol/L Chloride 108 H 107 (98-107) mmol/L Carbon Dioxide 20 L 24 (22-30) mmol/L BUN 21 H 19 (9-20) mg/dL Creatinine 2.39 H 2.33 H (0.66-1.25) mg/dL Glucose 119 H 114 H (74-99) mg/dL Calcium 8.5 8.3 L (8.4-10.2) mg/dL Adrenal panel 10/31/23 11/01/23 Range/Units 07:59 05:28 Sodium 138 135 L (137-145) mmol/L Potassium 5.0 4.6 (3.5-5.1) mmol/L Chloride 108 H 107 (98-107) mmol/L Carbon Dioxide 20 L 24 (22-30) mmol/L BUN 21 H 19 (9-20) mg/dL Creatinine 2.39 H 2.33 H (0.66-1.25) mg/dL Glucose 119 H 114 H (74-99) mg/dL Calcium 8.5 8.3 L (8.4-10.2) mg/dL - Imaging Comments: Left foot x-ray there is evidence of diffuse soft tissue swelling of the forefoot and midfoot, extending to involve the hindfoot. No focal soft tissue findings other than arthrosclerotic arterial calcifications. No fracture or malalignment. No focal skeletal lesions, other than stable tuft deformity of the great toe. Scattered mild osteoarthrosis changes are seen at several articulations. Assessment and Plan Assessment: 1. Infected chronic diabetic left foot wound 2. Diabetes mellitus with peripheral neuropathy 3. History of coronary artery disease status post stenting 4. Hypertension 5. Hyperlipidemia Plan: 1. Make patient n.p.o. 2. IV antibiotics per recommendations from infectious disease 3. Plan for left foot surgical debridement with deep tissue cultures tentatively scheduled this afternoon 4. Will consult wound care, patient will need outpatient follow-up Thank you for this consultation, we will continue to follow. The impression and plan of care has been dictated as directed. I performed a history and examination of this patient, discussed the same with the dictator. I agree with the dictator's note ,documented as a scribe. Any additional findings or plans will be noted.
[2023-11-01 10:59] LABS: Basophils # (A) 0.05 X 10*3/uL (0.00-0.10); Basophils % (A) 0.5 %; Eosinophils # (A) 0.56 X 10*3/uL (0.04-0.35); Eosinophils % (A) 5.6 %; HCT 32.7 % (39.6-50.0); HGB 10.7 g/dL (13.0-17.0); Lymphocytes # (A) 1.72 X 10*3/uL (0.90-5.00); Lymphocytes % (A) 17.3 %; MCH 28.6 pg (27.0-32.0); MCHC 32.7 g/dL (32.0-37.0); MCV 87.4 FL (80.0-97.0); Mean Platelet Volume 8.8 FL (9.5-12.2); Monocytes # (A) 0.78 X 10*3/uL (0.20-1.00); Monocytes % (A) 7.8 %; NRBC Per 100 WBC 0 X 10*3/uL (0.00-0.01); Neutrophils # (A) 6.78 X 10*3/uL (1.80-7.70); Neutrophils % (A) 68.3 %; Platelet Count 492 X 10*3/uL (140-440); RBC 3.74 X 10*6/uL (4.40-5.60); RDW 11.5 % (11.5-14.5); WBC 9.94 X 10*3/uL (4.50-10.00)
[2023-11-01 11:37] LABS: Glucose,Whole Blood 143 mg/dL (70-110)
--- NOTE | 2023-11-01 11:48 | P.PN ---
Subjective Progress Note Date: 11/01/23 Principal diagnosis: Reason for follow-up is right operative foot infection/infected callus Patient is a 38-year-old -Nigerien male with a past medical history significant diabetes mellitus hypertension hyperlipidemia FL coronary artery disease presenting to the hospital for evaluation of increasing pain swelling and redness to the right foot, patient be diagnosed with the infected callus and extensive diabetic foot infection. On today's evaluation that is 11/01/2023, Patient is afebrile patient is currently on room air and denies having any shortness of breath, the patient denies any chest pain or cough, the patient denies any nausea vomiting did not have any abdominal pain and no diarrhea, the patient swelling redness and discomfort to the right foot has decreased intensity still have some purulent drainage. Patient white count normalized to 9.94, creatinine is 2.33 cultures currently growing gram-negative bacilli blood cultures are pending Objective - Vital Signs Vital signs: Vital Signs Temp 98.5 F 11/01/23 07:35 Pulse 75 11/01/23 07:35 Resp 18 11/01/23 07:35 BP 159/96 11/01/23 07:35 Pulse Ox 99 11/01/23 07:35 FiO2 Intake & Output 10/31/23 11/01/23 11/01/23 18:59 06:59 18:59 Intake Total 950 Output Total 1500 3100 Balance -550 -3100 Weight 97.069 kg Intake: Intake, IV Titration 950 Amount Ampicillin-Sulbactam 3 gm 100 In Sodium Chloride 0.9% 100 ml @ 200 mls/hr IVPB Q6HR [facility] Rx#:[id number] Piperacillin-Tazobactam 3 100 .375 gm In Sodium Chloride 0.9% 100 ml @ 25 mls/hr IVPB Q8HR [facility] Rx# :[id number] Sodium Chloride 0.9% 1, 750 000 ml @ 75 mls/hr IV . [id number] [facility] Rx#:[id number] Output: Urine 1500 3100 - Exam GENERAL DESCRIPTION: Middle-age male lying in bed in no distress RESPIRATORY SYSTEM: Unlabored breathing , decreased breath sounds at bases HEART: S1 S2 regular rate and rhythm , ABDOMEN: Soft , no tenderness EXTREMITIES: Right foot plantar wound with purulent drainage - Labs CBC & Chem 7: 11/01/23 05:28 11/01/23 05:28 Labs: Abnormal Lab Results - Last 24 Hours (Table) 10/31/23 10/31/23 10/31/23 Range/Units 07:59 07:59 11:54 WBC 11.3 H (3.8-10.6) k/uL RBC 3.91 L (4.30-5.90) m/uL Hgb 11.2 L (13.0-17.5) gm/dL Hct 35.5 L (39.0-53.0) % Plt Count 545 H (150-450) k/uL Neutrophils # 8.4 H (1.3-7.7) k/uL Sodium (137-145) mmol/L Chloride 108 H (98-107) mmol/L Carbon Dioxide 20 L (22-30) mmol/L BUN 21 H (9-20) mg/dL Creatinine 2.39 H (0.66-1.25) mg/dL Glucose 119 H (74-99) mg/dL POC Glucose (mg/dL) 182 H (70-110) mg/dL Calcium (8.4-10.2) mg/dL 10/31/23 10/31/23 11/01/23 Range/Units 16:37 20:32 05:28 WBC (3.8-10.6) k/uL RBC (4.30-5.90) m/uL Hgb (13.0-17.5) gm/dL Hct (39.0-53.0) % Plt Count (150-450) k/uL Neutrophils # (1.3-7.7) k/uL Sodium 135 L (137-145) mmol/L Chloride (98-107) mmol/L Carbon Dioxide (22-30) mmol/L BUN (9-20) mg/dL Creatinine 2.33 H (0.66-1.25) mg/dL Glucose 114 H (74-99) mg/dL POC Glucose (mg/dL) 170 H 194 H (70-110) mg/dL Calcium 8.3 L (8.4-10.2) mg/dL 11/01/23 Range/Units 05:45 WBC (3.8-10.6) k/uL RBC (4.30-5.90) m/uL Hgb (13.0-17.5) gm/dL Hct (39.0-53.0) % Plt Count (150-450) k/uL Neutrophils # (1.3-7.7) k/uL Sodium (137-145) mmol/L Chloride (98-107) mmol/L Carbon Dioxide (22-30) mmol/L BUN (9-20) mg/dL Creatinine (0.66-1.25) mg/dL Glucose (74-99) mg/dL POC Glucose (mg/dL) 134 H (70-110) mg/dL Calcium (8.4-10.2) mg/dL Microbiology - Last 24 Hours (Table) 10/30/23 17:30 Blood Culture - Preliminary Blood 10/30/23 17:55 Blood Culture - Preliminary Blood 10/30/23 17:26 Gram Stain - Preliminary Foot - Left Wound Culture - Preliminary Gram Neg Bacilli Assessment and Plan (1) Diabetic foot infection Current Visit: Yes Status: Acute Code(s): E11.628 - TYPE 2 DIABETES MELLITUS WITH OTHER SKIN COMPLICATIONS; L08.9 - LOCAL INFECTION OF THE SKIN AND SUBCUTANEOUS TISSUE, UNSP SNOMED Code(s): 475603394 (2) Foot abscess, right Current Visit: Yes Status: Acute Code(s): L02.611 - CUTANEOUS ABSCESS OF RIGHT FOOT SNOMED Code(s): 64260743723892430 (3) Infected wound Current Visit: Yes Status: Acute Code(s): T14.8XXA - OTHER INJURY OF UNSPECIFIED BODY REGION, INITIAL ENCOUNTER; L08.9 - LOCAL INFECTION OF THE SKIN AND SUBCUTANEOUS TISSUE, UNSP SNOMED Code(s): 81428198 Plan: 1patient presented to hospital with extensive left diabetic infection in this patient who did have a callus on the plantar aspect likely infected callus and an abscess and will need to cover for the polymicrobial skye usually associated with diabetic foot infection 2-patient with renal insufficiency high risk of nephrotoxicity from vancomycin and Zosyn combination 3-patient has been eval by vascular surgery pending for debridement this afternoon 4-patient to continue with Unasyn 3 g every 6 hours while waiting for the culture to finalize Dictation was produced using So[employer] software. please excuse any grammatical, word or spelling errors. Time with Patient: Less than 30
[2023-11-01] MEDS ORDERED: ONDANSETRON 4 MG/2 ML VIAL ONE (14:03)
[2023-11-01] MEDS: LACTATED RINGERS 1,000 ML IV ONE (14:05)
[2023-11-01 14:07] LABS: Glucose,Whole Blood 108 mg/dL (70-110)
[2023-11-01 14:11] VITALS: BMI 30.7
[2023-11-01] MEDS: ONDANSETRON 4 MG/2 ML VIAL IVP ONE (14:12)
[2023-11-01] MEDS: DEXAMETHASONE SOD PHOSPHATE 4 MG/ML 1 ML VIAL IVP ONE (14:12)
[2023-11-01] MEDS ORDERED: fentaNYL (PF) 50 MCG/ML 2 ML AMP ONE (14:19)
[2023-11-01] MEDS ORDERED: KETAMINE HCL IN 0.9 % NACL 50 MG/5 ML SYRINGE ONE (14:19)
[2023-11-01] MEDS ORDERED: MIDAZOLAM 2 MG/2 ML VIAL ONE (14:19)
[2023-11-01] MEDS ORDERED: PROPOFOL 10 MG/ML 20 ML VIAL IV ONE (14:19)
--- NOTE | 2023-11-01 15:12 | P.OP ---
Date of Procedure: 11/01/23 Description of Procedure: Preoperative diagnosis: Left plantar wound Postoperative diagnosis: Same, left third toe wound Procedure: Sharp excisional debridement left foot wound. Total measurements 11 x 0.9 x 1 cm to the level of bone Surgeon: Yadira Mccann D.O. EBL: 10 cc IV fluids: See records Urine output: Not measured Drains: None Complications: None immediately apparent Condition: Stable to recovery Operative indication and findings: Patient is a 38-year-old male with history of plantar foot wound that has not had much treatment since in June. He presented today with worsening foot pain and due to this was recommended undergo surgical debridement. Risk and benefits were discussed. He seemingly understood and was willing to proceed Procedure in detail: Patient was taken to the operative suite and placed in supine position. The left lower extremity was prepped and draped in usual st erile fashion. A preprocedural timeout was performed, all parties were in agreement. The wound was initially probed and found to go in the distal direction towards the toes and there was a conjoining wound at the level of the base of the third toe and onto the third toe itself. There was purulent drainage. This tract was opened and then sharply debrided with curette. The purulent drainage was cultured. The plantar wound was then probed further and was found to go in the posterior direction back towards the heel with the full measurements as above after opening a further portion of this area with excision of the plantar wound itself. The area was copiously irrigated. Wet-to-dry dressing was placed. The debridement was carried down to the level of bone at the majority of the areas. The bone itself appeared to be relatively dressings were placed the patient was taken to recovery in stable condition having tolerated the procedure well.
[2023-11-01 15:16] LABS: Glucose,Whole Blood 99 mg/dL (70-110)
[2023-11-01] MEDS: HYDROmorphone 0.5 MG/0.5 ML SYRINGE IVP ONE (15:20)
[2023-11-01] MEDS: METOPROLOL TARTRATE 5 MG/5 ML VIAL IVP ONE (15:55)
[2023-11-01 16:35] LABS: Glucose,Whole Blood 105 mg/dL (70-110)
--- NOTE | 2023-11-01 17:06 | P.NPCON ---
History of Present Illness - Reason for Consult acute renal failure - History of Present Illness Patient is a 38-year-old male with history of hypertension, type 2 diabetes who was admitted to the hospital with complaints of drainage from left foot wound. Patient denied any significant nausea vomiting or abdominal pain. He does use NSAIDs for pain. No significant urinary symptoms. Serum creatinine at 2.3 mg/dL. Review of previous labs shows a creatinine of 1.9 on 01/03/2022 but previously it had been 1.2 mg/dL in 2020 Blood pressure has not been low. Patient is voiding Review of Systems As per HPI Past Medical History Past Medical History: Coronary Artery Disease (CAD), Diabetes Mellitus, Hyperlipidemia, Hypertension, Myocardial Infarction ([place]), Skin Disorder, Vascular Disorder, Skin Disorder, Vascular Disorder Additional Past Medical History / Comment(s): neuropathy melvin legs, eczema, wound left great toe(on antibiotics currently)-goes to [facility] wound center, poor circulation melvin legs, eczema, Last Myocardial Infarction Date:: 2014 History of Any Multi-Drug Resistant Organisms: MRSA Date of last positivie culture/infection: 01/18/22 MDRO Source:: Toe Left Second Past Surgical History: Heart Catheterization Additional Past Surgical History / Comment(s): laser eye surgery x 2, oral surgery, angiogram, 2 toes amputated form right foot 06/2023 Past Anesthesia/Blood Transfusion Reactions: Motion Sickness Past Psychological History: Anxiety Smoking Status: Never smoker Past Alcohol Use History: None Reported Past Drug Use History: None Reported Additional Drug Use History / Comment(s): occ. use - Past Family History Mother Family Medical History: No Reported History Father Family Medical History: Coronary Artery Disease (CAD), Hypertension Medications and Allergies Home Medications Medication Instructions Recorded Confirmed Type No Known Home Medications 10/30/23 10/30/23 History Allergies Allergy/AdvReac Type Severity Reaction Status Date / Time No Known Allergies Allergy Verified 11/01/23 13:58 Physical Exam Vitals: Vital Signs Temp Pulse Resp BP BP Pulse Ox 11/01/23 16:15 73 16 163/96 100 11/01/23 16:10 74 16 154/94 99 11/01/23 16:05 74 16 153/93 99 11/01/23 16:00 73 16 155/92 99 11/01/23 15:45 75 16 161/93 100 11/01/23 15:30 77 16 163/93 100 11/01/23 15:15 72 16 170/103 100 11/01/23 15:00 76 16 166/96 100 11/01/23 14:58 97.7 F 87 16 160/94 100 11/01/23 13:56 97.4 F L 71 16 162/93 99 11/01/23 07:35 98.5 F 75 18 159/96 99 11/01/23 01:43 98.4 F 83 17 159/94 100 10/31/23 20:04 98.6 F 78 16 156/95 100 Intake and Output 11/01/23 11/01/23 11/01/23 06:59 14:59 22:59 Intake Total 700 Output Total 2300 360 Balance -2300 340 Intake: IV 700 Output: Urine 2300 350 Estimated Blood Loss 10 Other: Weight 97.069 kg Patient is awake, comfortable, no acute distress Examination of the heart S1 and S2 Examination of the lungs bilateral breath sounds are heard Abdomen is soft nontender Examination of lower extremities shows trace edema with drainage noted from left foot wound near left third toe. 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 Acute kidney injury, ATN secondary to underlying infection and secondary to NSAIDs. Currently nonoliguric. Check UA and check ultrasound of the kidneys. Currently maintained on IV fluids. 2. Left foot wound maintained on antibiotics 3. Chronic kidney disease and Stage IIIb with previous creatinine 1.9 on 01/03/2022. Etiology likely diabetic kidney disease. UA will be ordered. 4. Hypertension, uncontrolled. Started on carvedilol Plan: Continue IV fluids. Increase carvedilol if blood pressure remains elevated Check UA Check ultrasound of the kidneys Patient is advised to avoid use of NSAIDs Patient will need to follow-up as outpatient for chronic kidney disease. Thank you for the consultation. We will continue to follow the patient with you during his hospitalization.
[2023-11-01] MEDS: HYDROcodone/APAP 5-325MG 1 EACH TAB PO PRN (19:58)
[2023-11-01 20:07] LABS: Glucose,Whole Blood 307 mg/dL (70-110)
[2023-11-01 20:53] LABS: Appearance,Urine Clear (Clear); Bilirubin,Urine Negative (Negative); Blood,Urine Small (Negative); Color,Urine Colorless; Glucose,Urine (UA) 1+ (Negative); Ketones,Urine Negative (Negative); Leukocyte Esterase,Urine Negative (Negative); Mucus,Urine Rare /hpf; Nitrite,Urine Negative (Negative); Protein,Urine 2+ (Negative); RBC,Urine 8 /hpf (0-5); Specific Gravity,Urine 1.016 (1.001-1.035); Urobilinogen,Urine <2.0 mg/dL (<2.0); WBC,Urine 1 /hpf (0-5)
[2023-11-02 05:49] LABS: Glucose,Whole Blood 143 mg/dL (70-110)
[2023-11-02 10:50] LABS: Basophils # (A) 0.07 X 10*3/uL (0.00-0.10); Basophils % (A) 0.6 %; Eosinophils # (A) 0.21 X 10*3/uL (0.04-0.35); Eosinophils % (A) 1.8 %; HCT 30.9 % (39.6-50.0); HGB 10.4 g/dL (13.0-17.0); Lymphocytes # (A) 2.05 X 10*3/uL (0.90-5.00); MCH 29.1 pg (27.0-32.0); MCHC 33.7 g/dL (32.0-37.0); MCV 86.6 FL (80.0-97.0); Monocytes % (A) 7.9 %; NRBC Per 100 WBC 0 X 10*3/uL (0.00-0.01); Neutrophils % (A) 71.3 %; Platelet Count 469 X 10*3/uL (140-440); RBC 3.57 X 10*6/uL (4.40-5.60); RDW 11.3 % (11.5-14.5); WBC 11.38 X 10*3/uL (4.50-10.00)
--- NOTE | 2023-11-02 10:58 | P.CONS ---
History of Present Illness - Reason for Consult Consult date: 11/02/23 wound care - History of Present Illness This is a 38-year-old gentleman known to the wound care center with a diabetic foot ulcer to the left foot. Patient underwent a surgical debridement resulting in ulceration that measures approximately 11 x 3 x 3.5 cm with muscle involvement without necrosis. Undermining noted throughout the wound bed. Granulation seen with slough and nonviable tissue present. Patient's past med ical history significant for diabetes. Patient has had hyperbaric oxygen therapy previous for a diabetic foot ulceration. He has also had a amputation to the right third digit. Review Of Systems: Constitutional: No fever, no chills, no night sweats. No weight change. No weakness, fatigue or lethargy. No daytime sleepiness. Integumentary:reports wounds, no lesions. No rash or pruritus. No unusual bruising. No change in hair or nails. Physical exam: General Appearance: Alert, cooperative, no distress, appears stated age. Skin: See HPI all other Skin color, texture, tugor normal, no rashes or lesions. Neurologic: Alert oriented x3 Assessment: 1. Nonhealing ulceration with muscle involvement without necrosis left plantar foot 2. Diabetic foot ulcer Plan: 1. Apply negative pressure wound VAC at 125 mmHg continuous pressure with black foam. Change Monday. Patient will need to be seen in the wound care center upon discharge. Patient is agreeable. Thank you for the consultation any questions please contact the wound care center DNP note has been reviewed and discussed with Dr. Gonzalez and the impression and plan of care has been directed as dictated. Past Medical History Past Medical History: Coronary Artery Disease (CAD), Diabetes Mellitus, Hyperlipidemia, Hypertension, Myocardial Infarction ([place]), Skin Disorder, Vascular Disorder, Skin Disorder, Vascular Disorder Additional Past Medical History / Comment(s): neuropathy melvin legs, eczema, wound left great toe(on antibiotics currently)-goes to [facility] wound center, poor circulation melvin legs, eczema, Last Myocardial Infarction Date:: 2014 History of Any Multi-Drug Resistant Organisms: MRSA Year Discovered:: 01/18/22 MDRO Source:: Toe Left Second Past Surgical History: Heart Catheterization Additional Past Surgical History / Comment(s): laser eye surgery x 2, oral surgery, angiogram, 2 toes amputated form right foot 06/2023 Past Anesthesia/Blood Transfusion Reactions: Motion Sickness Past Psychological History: Anxiety Smoking Status: Never smoker Past Alcohol Use History: None Reported Past Drug Use History: None Reported Additional Drug Use History / Comment(s): occ. use - Past Family History Mother Family Medical History: No Reported History Father Family Medical History: Coronary Artery Disease (CAD), Hypertension Medications and Allergies Home Medications Medication Instructions Recorded Confirmed Type No Known Home Medications 10/30/23 10/30/23 History Allergies Allergy/AdvReac Type Severity Reaction Status Date / Time No Known Allergies Allergy Verified 11/01/23 13:58 Physical Exam Vitals: Vital Signs Temp Pulse Resp BP BP Pulse Ox 11/02/23 07:04 97.8 F 68 18 143/90 99 11/02/23 01:03 97.8 F 72 17 125/78 99 11/01/23 19:15 97.1 F L 70 16 170/106 99 11/01/23 16:15 73 16 163/96 100 11/01/23 16:10 74 16 154/94 99 11/01/23 16:05 74 16 153/93 99 11/01/23 16:00 73 16 155/92 99 11/01/23 15:45 75 16 161/93 100 11/01/23 15:30 77 16 163/93 100 11/01/23 15:15 72 16 170/103 100 11/01/23 15:00 76 16 166/96 100 11/01/23 14:58 97.7 F 87 16 160/94 100 11/01/23 13:56 97.4 F L 71 16 162/93 99 Intake and Output 11/01/23 11/02/23 11/02/23 22:59 06:59 14:59 Output Total 900 Balance -900 Output: Urine 900 Other: Voiding Method Urinal # Voids 3 Results CBC & Chem 7: 11/02/23 07:49 11/01/23 05:28 Labs: Abnormal Lab Results - Last 24 Hours (Table) 11/01/23 11/01/23 11/01/23 Range/Units 05:28 05:28 11:36 WBC (4.50-10.00) X 10*3/uL RBC 3.74 L (4.40-5.60) X 10*6/uL Hgb 10.7 L (13.0-17.0) g/dL Hct 32.7 L (39.6-50.0) % RDW (11.5-14.5) % Plt Count 492 H (140-440) X 10*3/uL MPV 8.8 L (9.5-12.2) FL Immature Gran # 0.05 H (0.00-0.04) X 10*3/uL Neutrophils # (1.80-7.70) X 10*3/uL Eosinophils # 0.56 H (0.04-0.35) X 10*3/uL POC Glucose (mg/dL) 143 H (70-110) mg/dL Hemoglobin A1c 6.9 H (<=6.0) % Urine Protein (Negative) Urine Glucose (UA) (Negative) Urine Blood (Negative) Urine RBC (0-5) /hpf Urine Mucus (None) /hpf 11/01/23 11/01/23 11/02/23 Range/Units 20:05 20:38 05:44 WBC (4.50-10.00) X 10*3/uL RBC (4.40-5.60) X 10*6/uL Hgb (13.0-17.0) g/dL Hct (39.6-50.0) % RDW (11.5-14.5) % Plt Count (140-440) X 10*3/uL MPV (9.5-12.2) FL Immature Gran # (0.00-0.04) X 10*3/uL Neutrophils # (1.80-7.70) X 10*3/uL Eosinophils # (0.04-0.35) X 10*3/uL POC Glucose (mg/dL) 307 H 143 H (70-110) mg/dL Hemoglobin A1c (<=6.0) % Urine Protein 2+ H (Negative) Urine Glucose (UA) 1+ H (Negative) Urine Blood Small H (Negative) Urine RBC 8 H (0-5) /hpf Urine Mucus Rare H (None) /hpf 11/02/23 Range/Units 07:49 WBC 11.38 H (4.50-10.00) X 10*3/uL RBC 3.57 L (4.40-5.60) X 10*6/uL Hgb 10.4 L (13.0-17.0) g/dL Hct 30.9 L (39.6-50.0) % RDW 11.3 L (11.5-14.5) % Plt Count 469 H (140-440) X 10*3/uL MPV 9.0 L (9.5-12.2) FL Immature Gran # 0.05 H (0.00-0.04) X 10*3/uL Neutrophils # 8.10 H (1.80-7.70) X 10*3/uL Eosinophils # (0.04-0.35) X 10*3/uL POC Glucose (mg/dL) (70-110) mg/dL Hemoglobin A1c (<=6.0) % Urine Protein (Negative) Urine Glucose (UA) (Negative) Urine Blood (Negative) Urine RBC (0-5) /hpf Urine Mucus (None) /hpf Microbiology - Last 24 Hours (Table) 11/01/23 14:56 Gram Stain - Preliminary Foot - Left 10/30/23 17:30 Blood Culture - Preliminary Blood 10/30/23 17:55 Blood Culture - Preliminary Blood 10/30/23 17:26 Gram Stain - Final Foot - Left Wound Culture - Final Proteus mirabilis Assessment and Plan (1) Non-pressure chronic ulcer of other part of left foot with muscle involvement without evidence of necrosis Current Visit: Yes Status: Acute Code(s): L97.525 - NON-PRS CHR ULC OTH PRT L FOOT WITH MSL INVL W/O EVD OF NECR SNOMED Code(s): 81613981554959231 (2) Diabetic foot infection Current Visit: Yes Status: Acute Code(s): E11.628 - TYPE 2 DIABETES MELLITUS WITH OTHER SKIN COMPLICATIONS; L08.9 - LOCAL INFECTION OF THE SKIN AND SUBCUTANEOUS TISSUE, UNSP SNOMED Code(s): 902148398
[2023-11-02 10:59] LABS: BUN/Creat Ratio 7.41 Ratio (12.00-20.00); Blood Urea Nitrogen 16.3 mg/dL (9.0-27.0); Calcium 8.3 mg/dL (8.7-10.3); Carbon Dioxide 23.1 mmol/L (21.6-31.8); Chloride 103 mmol/L (96-109); Glucose 105 mg/dL (70-110); Potassium 4.5 mmol/L (3.5-5.5); Sodium 138 mmol/L (135-145)
[2023-11-02 11:21] LABS: Glucose,Whole Blood 124 mg/dL (70-110)
--- NOTE | 2023-11-02 12:58 | P.PN ---
Subjective Progress Note Date: 11/02/23 Patient seen and examined today as a follow-up. Yesterday he underwent left foot debridement. He was seen by wound care today who are recommending wound VAC placement due to amount of bleeding and serosanguineous drainage. He overall has no other complaints. He did go down for the first part of his bone scan, he is due for 2 go back down to nuclear medicine at 130. He has been afebrile. He remains on IV antibiotics. Initial wound culture came back as Proteus Mirabilis. Objective - Vital Signs Vital signs: Vital Signs Temp 97.8 F 11/02/23 07:04 Pulse 68 11/02/23 07:04 Resp 18 11/02/23 07:04 BP 143/90 11/02/23 07:04 Pulse Ox 99 11/02/23 07:04 FiO2 Intake & Output 11/01/23 11/02/23 11/02/23 18:59 06:59 18:59 Intake Total 700 Output Total 360 900 Balance 340 -900 Weight 97.069 kg Intake: IV 700 Output: Urine 350 900 Estimated Blood Loss 10 Other: Voiding Method Urinal # Voids 3 - Exam General appearance: The patient is alert, oriented, appears in no acute distress. HET: Head is normocephalic and atraumatic. Pupils are equal and reactive. Neck: Supple. Abdomen: Soft, nondistended. Extremities: Left foot with dressing, currently clean dry and intact. Neurological: No focal deficits. Strength and sensation are grossly intact. - Labs CBC & Chem 7: 11/02/23 07:49 11/02/23 07:49 Labs: Abnormal Lab Results - Last 24 Hours (Table) 11/01/23 11/01/23 11/02/23 Range/Units 20:05 20:38 05:44 WBC (4.50-10.00) X 10*3/uL RBC (4.40-5.60) X 10*6/uL Hgb (13.0-17.0) g/dL Hct (39.6-50.0) % RDW (11.5-14.5) % Plt Count (140-440) X 10*3/uL MPV (9.5-12.2) FL Immature Gran # (0.00-0.04) X 10*3/uL Neutrophils # (1.80-7.70) X 10*3/uL Creatinine (0.6-1.5) mg/dL Est GFR (CKD-EPI) (>=60) BUN/Creatinine Ratio (12.00-20.00) Ratio POC Glucose (mg/dL) 307 H 143 H (70-110) mg/dL Calcium (8.7-10.3) mg/dL Urine Protein 2+ H (Negative) Urine Glucose (UA) 1+ H (Negative) Urine Blood Small H (Negative) Urine RBC 8 H (0-5) /hpf Urine Mucus Rare H (None) /hpf 11/02/23 11/02/23 11/02/23 Range/Units 07:49 07:49 11:20 WBC 11.38 H (4.50-10.00) X 10*3/uL RBC 3.57 L (4.40-5.60) X 10*6/uL Hgb 10.4 L (13.0-17.0) g/dL Hct 30.9 L (39.6-50.0) % RDW 11.3 L (11.5-14.5) % Plt Count 469 H (140-440) X 10*3/uL MPV 9.0 L (9.5-12.2) FL Immature Gran # 0.05 H (0.00-0.04) X 10*3/uL Neutrophils # 8.10 H (1.80-7.70) X 10*3/uL Creatinine 2.2 H (0.6-1.5) mg/dL Est GFR (CKD-EPI) 38 L (>=60) BUN/Creatinine Ratio 7.41 L (12.00-20.00) Ratio POC Glucose (mg/dL) 124 H (70-110) mg/dL Calcium 8.3 L (8.7-10.3) mg/dL Urine Protein (Negative) Urine Glucose (UA) (Negative) Urine Blood (Negative) Urine RBC (0-5) /hpf Urine Mucus (None) /hpf Microbiology - Last 24 Hours (Table) 11/01/23 14:56 Gram Stain - Preliminary Foot - Left 10/30/23 17:30 Blood Culture - Preliminary Blood 10/30/23 17:55 Blood Culture - Preliminary Blood 10/30/23 17:26 Gram Stain - Final Foot - Left Wound Culture - Final Proteus mirabilis Assessment and Plan Assessment: 1. Infected chronic diabetic left foot wound 2. Diabetes mellitus with peripheral neuropathy 3. History of coronary artery disease status post stenting 4. Hypertension 5. Hyperlipidemia Plan: 1. Offload weight bearing to left foot 2. IV antibiotics per recommendations from infectious disease 3. Continue with recommendations from wound care. Current recommendations wound VAC placement 4. Await bone scan results 5. Recommend outpatient follow-up with wound care/podiatry 6. Will consult case management for insurance/financial concerns Thank you for this consultation, we will continue to follow. The impression and plan of care has been dictated as directed. I performed a history and examination of this patient, discussed the same with the dictator. I agree with the dictator's note ,documented as a scribe. Any additional findings or plans will be noted.
[2023-11-02] MEDS: GELATIN SPONGE,ABSORB (SMALL) 1 EACH SPONGE TOPICAL STA (13:30)
[2023-11-02] MEDS: HYDROmorphone 1 MG/ML 1 ML SYRINGE IVP STA (13:35)
[2023-11-02 13:49] LABS: Basophils # (A) 0.1 k/uL (0-0.2); Basophils % (A) 0 %; Eosinophils # (A) 0.4 k/uL (0-0.7); Eosinophils % (A) 3 %; HCT 32.3 % (39.0-53.0); HGB 10.7 gm/dL (13.0-17.5); Lymphocytes # (A) 2.5 k/uL (1.0-4.8); Lymphocytes % (A) 22 %; MCH 29.1 pg (25.0-35.0); MCHC 33.1 g/dL (31.0-37.0); MCV 87.8 fL (80.0-100.0); Mean Platelet Volume 6.9; Monocytes # (A) 0.5 k/uL (0-1.0); Monocytes % (A) 4 %; Neutrophils # (A) 7.8 k/uL (1.3-7.7); Neutrophils % (A) 67 %; Platelet Count 534 k/uL (150-450); RBC 3.68 m/uL (4.30-5.90); RDW 11.8 % (11.5-15.5); WBC 11.5 k/uL (3.8-10.6)
--- NOTE | 2023-11-02 14:10 | P.PN ---
Progress Note - Text Progress Note Date: 11/02/23 Was notified that patient was bleeding from incision site after dressing had been removed and evaluated by wound care. Plan was to place a wound VAC however wound was bleeding too much and went up between his toes where there would not be a good seal. When arrived to the bedside patient had been saturating through multiple ABD pads. Pressure was applied, Shruti Mcdermott, FAMILY PRACTICE PHYSICIAN with wound care came back to the bedside with disposable cautery and utilize cautery. There was some improvement in bleeding, Gelfoam and 4 x 4 then placed within wound bed, 4 x 4, ABD pad, Kerlix and pressure dressing applied. Stat CBC ordered. Also patient was given 1 mg of IV Dilaudid for pain. Dr. Mccann aware. Nursing to continue to monitor bleeding, notify Dr. Mccann if bleeding does not improved. Also instructed to monitor sensorimotor and perfusion of left foot and toes. The impression and plan of care has been dictated as directed. Dr. Mccann I performed a history and examination of this patient, discussed the same with the dictator. I agree with the dictator's note ,documented as a scribe. Any additional findings or plans will be noted.
--- NOTE | 2023-11-02 15:45 | P.PN ---
Subjective Progress Note Date: 11/02/23 Principal diagnosis: Reason for follow-up is left diabetic foot infection/infected callus Patient is a 38-year-old -[place] male with a past medical history significant diabetes mellitus hypertension hyperlipidemia [place] coronary artery disease presenting to the hospital for evaluation of increasing pain swelling and redness to the left foot, patient be diagnosed with the infected callus and extensive diabetic foot infection. On today's evaluation that is Patient is status post Sharp excisional debridement left foot wound. Total measurements 11 x 0.9 x 1 cm to the level of bone completed on 11/01/2023 On today's evaluation that is 11/02/2023,the patient denies any fever or any chills, patient is breathing comfortably on room air, the patient denies chest pain shortness of breath and no significant cough, patient denies abdominal pain, no nausea vomiting or diarrhea. Denies pain to the left foot wound Objective - Vital Signs Vital signs: Vital Signs Temp 97.8 F 11/02/23 07:04 Pulse 68 11/02/23 07:04 Resp 18 11/02/23 07:04 BP 143/90 11/02/23 07:04 Pulse Ox 99 11/02/23 07:04 FiO2 Intake & Output 11/01/23 11/02/23 11/02/23 18:59 06:59 18:59 Intake Total 700 Output Total 360 900 Balance 340 -900 Weight 97.069 kg Intake: IV 700 Output: Urine 350 900 Estimated Blood Loss 10 Other: Voiding Method Urinal # Voids 3 - Exam GENERAL DESCRIPTION: Middle-age male lying in bed in no distress RESPIRATORY SYSTEM: Unlabored breathing , decreased breath sounds at bases HEART: S1 S2 regular rate and rhythm , ABDOMEN: Soft , no tenderness EXTREMITIES: Left foot wound is currently dressed with bloodstained drainage on the dressing - Labs CBC & Chem 7: 11/02/23 13:36 11/02/23 07:49 Labs: Abnormal Lab Results - Last 24 Hours (Table) 11/01/23 11/01/23 11/01/23 Range/Units 05:28 05:28 11:36 RBC 3.74 L (4.40-5.60) X 10*6/uL Hgb 10.7 L (13.0-17.0) g/dL Hct 32.7 L (39.6-50.0) % Plt Count 492 H (140-440) X 10*3/uL MPV 8.8 L (9.5-12.2) FL Immature Gran # 0.05 H (0.00-0.04) X 10*3/uL Eosinophils # 0.56 H (0.04-0.35) X 10*3/uL POC Glucose (mg/dL) 143 H (70-110) mg/dL Hemoglobin A1c 6.9 H (<=6.0) % Urine Protein (Negative) Urine Glucose (UA) (Negative) Urine Blood (Negative) Urine RBC (0-5) /hpf Urine Mucus (None) /hpf 11/01/23 11/01/23 11/02/23 Range/Units 20:05 20:38 05:44 RBC (4.40-5.60) X 10*6/uL Hgb (13.0-17.0) g/dL Hct (39.6-50.0) % Plt Count (140-440) X 10*3/uL MPV (9.5-12.2) FL Immature Gran # (0.00-0.04) X 10*3/uL Eosinophils # (0.04-0.35) X 10*3/uL POC Glucose (mg/dL) 307 H 143 H (70-110) mg/dL Hemoglobin A1c (<=6.0) % Urine Protein 2+ H (Negative) Urine Glucose (UA) 1+ H (Negative) Urine Blood Small H (Negative) Urine RBC 8 H (0-5) /hpf Urine Mucus Rare H (None) /hpf Microbiology - Last 24 Hours (Table) 11/01/23 14:56 Gram Stain - Preliminary Foot - Left 10/30/23 17:30 Blood Culture - Preliminary Blood 10/30/23 17:55 Blood Culture - Preliminary Blood 10/30/23 17:26 Gram Stain - Final Foot - Left Wound Culture - Final Proteus mirabilis Assessment and Plan (1) Diabetic foot infection Current Visit: Yes Status: Acute Code(s): E11.628 - TYPE 2 DIABETES MELLITUS WITH OTHER SKIN COMPLICATIONS; L08.9 - LOCAL INFECTION OF THE SKIN AND SUBCUTANEOUS TISSUE, UNSP SNOMED Code(s): 009132443 (2) Foot abscess, right Current Visit: Yes Status: Acute Code(s): L02.611 - CUTANEOUS ABSCESS OF RIGHT FOOT SNOMED Code(s): 47076385166107685 (3) Infected wound Current Visit: Yes Status: Acute Code(s): T14.8XXA - OTHER INJURY OF UNSPECIFIED BODY REGION, INITIAL ENCOUNTER; L08.9 - LOCAL INFECTION OF THE SKIN AND SUBCUTANEOUS TISSUE, UNSP SNOMED Code(s): 24496730 Plan: 1patient presented to hospital with extensive left diabetic infection in this patient who did have a callus on the plantar aspect likely infected callus and an abscess and will need to cover for the polymicrobial skye usually associated with diabetic foot infection 2-patient with renal insufficiency high risk of nephrotoxicity 3-patient is status post sharp excisional debridement left foot wound. Total measurements 11 x 0.9 x 1 cm to the level of bone 4-patient cultures with Proteus OR cultures pending continue with Unasyn will need a PICC line for outpatient IV antibiotic therapy Dictation was produced using [employer] dictation software. please excuse any grammatical, word or spelling errors. Time with Patient: Less than 30
--- NOTE | 2023-11-02 16:05 | NM ---
EXAMINATION TYPE: NM bone 3 phase DATE OF EXAM: 11/02/2023 COMPARISON: Radiograph 10/30/2022 CLINICAL INDICATION: Male, 38 years old with history of left foot infected wound; Technique: Triple phase bone scintigraphy was performed following the injection of 23.7 mCi Tc 99m MD P. Immediate images and 6.5 hours post injection images acquired. Imaging centered at the bilateral distal lower extremities. FINDINGS: Flow images show hyperemia throughout the distal left leg and particularly within the forefoot region . Limited images show asymmetric tracer activity throughout the left leg and also particularly in the f orefoot region. Delayed images show focal intense activity along the third metatarsal head and proximal phalanx. Arnulfo tional patchy increased activity throughout the distal leg and mid foot/hindfoot regions. IMPRESSION: 1. Three-phase positive bone scan activity centered at the third metatarsal head and third proximal p halanx. If there is an associated wound, a contiguous osteomyelitis is considered. 2. Asymmetric hyperemia throughout the distal aspect of the left lower extremity and foot.
--- NOTE | 2023-11-02 17:21 | P.PN ---
Subjective Patient is seen for follow-up for chronic kidney disease and acute kidney injury. Currently maintained on IV fluids. Serum creatinine at 2.2 today. Good urine output. Bleeding noted from the wound. Being followed by wound care and vascular surge ry. Objective - Vital Signs Vital signs: Vital Signs Temp 97.6 F 11/02/23 12:51 Pulse 74 11/02/23 12:51 Resp 18 11/02/23 12:51 BP 159/99 11/02/23 12:51 Pulse Ox 99 11/02/23 12:51 FiO2 Intake & Output 11/01/23 11/02/23 11/02/23 18:59 06:59 18:59 Intake Total 700 Output Total 360 900 Balance 340 -900 Weight 97.069 kg Intake: IV 700 Output: Urine 350 900 Estimated Blood Loss 10 Other: Voiding Method Urinal # Voids 3 - Exam Patient is awake, comfortable, no acute distress Alert oriented x 3 Patient is euvolemic with no evidence of edema in the lower extremities. Abdomen is soft nontender Left foot is wrapped. - Labs CBC & Chem 7: 11/02/23 13:36 11/02/23 07:49 Labs: Abnormal Lab Results - Last 24 Hours (Table) 11/01/23 11/01/23 11/02/23 Range/Units 20:05 20:38 05:44 WBC (4.50-10.00) X 10*3/uL RBC (4.40-5.60) X 10*6/uL Hgb (13.0-17.0) g/dL Hct (39.6-50.0) % RDW (11.5-14.5) % Plt Count (140-440) X 10*3/uL MPV (9.5-12.2) FL Immature Gran # (0.00-0.04) X 10*3/uL Neutrophils # (1.80-7.70) X 10*3/uL Creatinine (0.6-1.5) mg/dL Est GFR (CKD-EPI) (>=60) BUN/Creatinine Ratio (12.00-20.00) Ratio POC Glucose (mg/dL) 307 H 143 H (70-110) mg/dL Calcium (8.7-10.3) mg/dL Urine Protein 2+ H (Negative) Urine Glucose (UA) 1+ H (Negative) Urine Blood Small H (Negative) Urine RBC 8 H (0-5) /hpf Urine Mucus Rare H (None) /hpf 11/02/23 11/02/23 11/02/23 Range/Units 07:49 07:49 11:20 WBC 11.38 H (4.50-10.00) X 10*3/uL RBC 3.57 L (4.40-5.60) X 10*6/uL Hgb 10.4 L (13.0-17.0) g/dL Hct 30.9 L (39.6-50.0) % RDW 11.3 L (11.5-14.5) % Plt Count 469 H (140-440) X 10*3/uL MPV 9.0 L (9.5-12.2) FL Immature Gran # 0.05 H (0.00-0.04) X 10*3/uL Neutrophils # 8.10 H (1.80-7.70) X 10*3/uL Creatinine 2.2 H (0.6-1.5) mg/dL Est GFR (CKD-EPI) 38 L (>=60) BUN/Creatinine Ratio 7.41 L (12.00-20.00) Ratio POC Glucose (mg/dL) 124 H (70-110) mg/dL Calcium 8.3 L (8.7-10.3) mg/dL Urine Protein (Negative) Urine Glucose (UA) (Negative) Urine Blood (Negative) Urine RBC (0-5) /hpf Urine Mucus (None) /hpf 11/02/23 Range/Units 13:36 WBC 11.5 H (4.50-10.00) X 10*3/uL RBC 3.68 L (4.40-5.60) X 10*6/uL Hgb 10.7 L (13.0-17.0) g/dL Hct 32.3 L (39.6-50.0) % RDW (11.5-14.5) % Plt Count 534 H (140-440) X 10*3/uL MPV (9.5-12.2) FL Immature Gran # (0.00-0.04) X 10*3/uL Neutrophils # 7.8 H (1.80-7.70) X 10*3/uL Creatinine (0.6-1.5) mg/dL Est GFR (CKD-EPI) (>=60) BUN/Creatinine Ratio (12.00-20.00) Ratio POC Glucose (mg/dL) (70-110) mg/dL Calcium (8.7-10.3) mg/dL Urine Protein (Negative) Urine Glucose (UA) (Negative) Urine Blood (Negative) Urine RBC (0-5) /hpf Urine Mucus (None) /hpf Microbiology - Last 24 Hours (Table) 11/01/23 14:56 Gram Stain - Preliminary Foot - Left 10/30/23 17:30 Blood Culture - Preliminary Blood 10/30/23 17:55 Blood Culture - Preliminary Blood 10/30/23 17:26 Gram Stain - Final Foot - Left Wound Culture - Final Proteus mirabilis Assessment and Plan Assessment: 1. Acute kidney injury, ATN secondary to underlying infection and secondary to NSAIDs. Currently nonoliguric. UA shows 2+ protein and small blood. No evidence of hydronephrosis on ultrasound of the kidneys. Maintained on IV fluids. 2. Left foot wound maintained on antibiotics, status post debridement on 11/01/2023 3. Chronic kidney disease and Stage IIIb with previous creatinine 1.9 on 01/03/2022. Etiology likely diabetic kidney disease. 4. Hypertension, uncontrolled. Started on carvedilol Plan: Continue IV fluids. Increase carvedilol Patient will need to follow-up as outpatient for chronic kidney disease.
[2023-11-02 18:35] LABS: Glucose,Whole Blood 197 mg/dL (70-110)
[2023-11-02 20:11] LABS: Glucose,Whole Blood 220 mg/dL (70-110)
[2023-11-03 06:17] LABS: Glucose,Whole Blood 102 mg/dL (70-110)
[2023-11-03 08:33] LABS: HCT 26.5 % (39.6-50.0); HGB 8.5 g/dL (13.0-17.0); MCH 27.8 pg (27.0-32.0); MCHC 32.1 g/dL (32.0-37.0); MCV 86.6 FL (80.0-97.0); NRBC Per 100 WBC 0 X 10*3/uL (0.00-0.01); Platelet Count 416 X 10*3/uL (140-440); RBC 3.06 X 10*6/uL (4.40-5.60); RDW 11.6 % (11.5-14.5); WBC 10.18 X 10*3/uL (4.50-10.00)
--- NOTE | 2023-11-03 10:13 | P.PN ---
Subjective Progress Note Date: 11/01/23 Patient is a 38-year-old male with past medical history of diabetes type 2, CKD stage III, coronary artery disease with prior cardiac catheterization, hypertension, hyperlipidemia, bilateral peripheral neuropathy diabetes and noncompliance with medications presents to ER with complaints of left foot wound on the plantar surface. Patient has been having infection for a while and started draining with purulent discharge for the past 4 to 5 days. Patient went to see his bowling or skating front desk clerk today and was stated to go to the hospital for IV antibiotics. Otherwise patient denies any fever or chills. Denies any injury. No complaints of chest pain or shortness of breath. No nausea vomiting abdominal pain or diarrhea. No cough or sputum production. Denies any recent illnesses. X-ray of the foot showed there is evidence of diffuse soft tissue swelling of the forefoot and midfoot., Extending to involve the hindfoot. No focal soft tissue findings other than atherosclerotic arterial calcifications. EKG showed sinus rhythm. Laboratory showed WBC 14.9 hemoglobin 11.1 and platelets 466 Sodium 135 potassium 4.3 chloride 102 bicarb is 26 BUN 23 and creatinine 2.44 and blood sugar 258. Lactic acid 0.8. Liver enzymes are not elevated. On admission blood pressure was 163/104 pulse 111 respiration 18 and pulse ox 100% on room air. 11/01/2023 Patient is currently resting in bed. Awake alert and oriented 3. No complaints of chest pain or shortness of breath. No cough or sputum production. No headache or dizziness or lightheadedness. Foot pain is slightly improved. Still having purulent discharge. Scheduled for I&D today. Laboratory data showed WBC 9.94, hemoglobin 10.7 and platelets 492, sodium 134 potassium 4.6 chloride 107 bicarb is 24 BUN 19 and creatinine 2.33 and blood sugar 114. A1c is 6.9 and calcium 8.3 Current medications reviewed. Objective - Vital Signs Vital signs: Vital Signs Temp 97.7 F 11/01/23 14:58 Pulse 73 11/01/23 16:15 Resp 16 11/01/23 16:15 BP 163/96 11/01/23 16:15 Pulse Ox 100 11/01/23 16:15 FiO2 Intake & Output 11/01/23 11/01/23 11/02/23 06:59 18:59 06:59 Intake Total 700 Output Total 3100 360 Balance -3100 340 Weight 97.069 kg Intake: IV 700 Output: Urine 3100 350 Estimated Blood Loss 10 Other: # Voids 3 - Exam PHYSICAL EXAMINATION: Patient is lying in the bed comfortably, no acute distress, awake alert and oriented.. HEENT: Normocephalic. Neck is supple. Pupils reactive. Nostrils clear. Oral cavity is moist. Neck reveals no JVD, carotid bruits, or thyromegaly. CHEST EXAMINATION: Trachea is central. Symmetrical expansion. Lung juan clear to auscultation and percussion. CARDIAC: Normal S1, S2 with no gallops. No murmurs ABDOMEN: Soft. Bowel sounds present. Nontender. No organomegaly. No abdominal bruits. Extremities: reveal no edema. No clubbing or cyanosis Neurologically awake, alert, oriented x3 with well-coordinated movements. No focal deficits noted Skin: No rash or skin lesions. Left foot wound is wrapped.. Psychiatric: Coperative. Nonsuicidal, Musculoskeletal: No joint swelling or deformity. Normal range of motion. - Labs CBC & Chem 7: 11/03/23 05:31 11/02/23 07:49 Labs: Abnormal Lab Results - Last 24 Hours (Table) 10/31/23 11/01/23 11/01/23 Range/Units 20:32 05:28 05:28 RBC (4.40-5.60) X 10*6/uL Hgb (13.0-17.0) g/dL Hct (39.6-50.0) % Plt Count (140-440) X 10*3/uL MPV (9.5-12.2) FL Immature Gran # (0.00-0.04) X 10*3/uL Eosinophils # (0.04-0.35) X 10*3/uL Sodium 135 L (137-145) mmol/L Creatinine 2.33 H (0.66-1.25) mg/dL Glucose 114 H (74-99) mg/dL POC Glucose (mg/dL) 194 H (70-110) mg/dL Hemoglobin A1c 6.9 H (<=6.0) % Calcium 8.3 L (8.4-10.2) mg/dL 11/01/23 11/01/23 11/01/23 Range/Units 05:28 05:45 11:36 RBC 3.74 L (4.40-5.60) X 10*6/uL Hgb 10.7 L (13.0-17.0) g/dL Hct 32.7 L (39.6-50.0) % Plt Count 492 H (140-440) X 10*3/uL MPV 8.8 L (9.5-12.2) FL Immature Gran # 0.05 H (0.00-0.04) X 10*3/uL Eosinophils # 0.56 H (0.04-0.35) X 10*3/uL Sodium (137-145) mmol/L Creatinine (0.66-1.25) mg/dL Glucose (74-99) mg/dL POC Glucose (mg/dL) 134 H 143 H (70-110) mg/dL Hemoglobin A1c (<=6.0) % Calcium (8.4-10.2) mg/dL Microbiology - Last 24 Hours (Table) 10/30/23 17:30 Blood Culture - Preliminary Blood 10/30/23 17:55 Blood Culture - Preliminary Blood 10/30/23 17:26 Gram Stain - Preliminary Foot - Left Wound Culture - Preliminary Gram Neg Bacilli Assessment and Plan Assessment: Left diabetic foot infection on the plantar aspect with purulent disc harge/abscess. Sepsis secondary to above Acute on chronic kidney disease stage III with baseline creatinine 1.2-1.9. Creatinine at admission 2.44 Uncontrolled hypertension Uncontrolled Diabetes type 2 [id number]. A1c 6.9 History of SD and cardiac catheterization. No PCI Peripheral vascular disease Bilateral peripheral neuropathy diabetic Hyperlipidemia Noncompliance with medications and follow-up. GI and DVT prophylaxis with Pepcid and heparin subcu Plan: Patient will be continued on IV hydration and continue with broad-spectrum antibiotics vancomycin and Zosyn. Follow-up wound cultures. ID is on board and vascular surgery is planning for IND today. Nephrology is on board. Renal ultrasound showed no evidence of hydronephrosis. continue insulin sliding scale for now. Continue with pain management. Continue to follow closely. Prognosis is guarded. Time with Patient: Greater than 30
--- NOTE | 2023-11-03 10:17 | P.PN ---
Subjective Progress Note Date: 11/02/23 Patient is a 38-year-old male with past medical history of diabetes type 2, CKD stage III, coronary artery disease with prior cardiac catheterization, hypertension, hyperlipidemia, bilateral peripheral neuropathy diabetes and noncompliance with medications presents to ER with complaints of left foot wound on the plantar surface. Patient has been having infection for a while and started draining with purulent discharge for the past 4 to 5 days. Patient went to see his manager analytical today and was stated to go to the hospital for IV antibiotics. Otherwise patient denies any fever or chills. Denies any injury. No complaints of chest pain or shortness of breath. No nausea vomiting abdominal pain or diarrhea. No cough or sputum production. Denies any recent illnesses. X-ray of the foot showed there is evidence of diffuse soft tissue swelling of the forefoot and midfoot., Extending to involve the hindfoot. No focal soft tissue findings other than atherosclerotic arterial calcifications. EKG showed sinus rhythm. Laboratory showed WBC 14.9 hemoglobin 11.1 and platelets 466 Sodium 135 potassium 4.3 chloride 102 bicarb is 26 BUN 23 and creatinine 2.44 and blood sugar 258. Lactic acid 0.8. Liver enzymes are not elevated. On admission blood pressure was 163/104 pulse 111 respiration 18 and pulse ox 100% on room air. 11/01/2023 Patient is currently resting in bed. Awake alert and oriented 3. No complaints of chest pain or shortness of breath. No cough or sputum production. No headache or dizziness or lightheadedness. Foot pain is slightly improved. Still having purulent discharge. Scheduled for I&D today. Laboratory data showed WBC 9.94, hemoglobin 10.7 and platelets 492, sodium 134 potassium 4.6 chloride 107 bicarb is 24 BUN 19 and creatinine 2.33 and blood sugar 114. A1c is 6.9 and calcium 8.3 11/02/2023 Patient is status post I&D of the left foot. Wound dressing in place. Patient does have bleeding from the wound site.. Vascular surgery is following. Otherwise patient is afebrile. Next and no complaints of chest pain or shortness of breath. Tolerating oral diet. No headache or dizziness or lightheadedness. Pain is fairly controlled. Laboratory data showed WBC 11.3 hemoglobin 10.4 and platelets 469, BUN 16.3 and creatinine 2.2 and blood sugar 105. Patient is being continued on Unasyn. Also on IV hydration with normal saline at 75 mL per hour Current medications reviewed. Objective - Vital Signs Vital signs: Vital Signs Temp 97.6 F 11/02/23 12:51 Pulse 74 11/02/23 12:51 Resp 18 11/02/23 12:51 BP 159/99 11/02/23 12:51 Pulse Ox 99 11/02/23 12:51 FiO2 Intake & Output 11/02/23 11/02/23 11/03/23 06:59 18:59 06:59 Output Total 900 Balance -900 Output: Urine 900 Other: Voiding Method Urinal # Voids 3 - Exam PHYSICAL EXAMINATION: Patient is lying in the bed comfortably, no acute distress, awake alert and oriented.. HEENT: Normocephalic. Neck is supple. Pupils reactive. Nostrils clear. Oral cavity is moist. Neck reveals no JVD, carotid bruits, or thyromegaly. CHEST EXAMINATION: Trachea is central. Symmetrical expansion. Lung juan clear to auscultation and percussion. CARDIAC: Normal S1, S2 with no gallops. No murmurs ABDOMEN: Soft. Bowel sounds present. Nontender. No organomegaly. No abdominal bruits. Extremities: reveal no edema. No clubbing or cyanosis Neurologically awake, alert, oriented x3 with well-coordinated movements. No focal deficits noted Skin: No rash or skin lesions. Left foot wound is wrapped.. Psychiatric: Coperative. Nonsuicidal, Musculoskeletal: No joint swelling or deformity. Normal range of motion. - Labs CBC & Chem 7: 11/03/23 05:31 11/02/23 07:49 Labs: Abnormal Lab Results - Last 24 Hours (Table) 11/01/23 11/01/23 11/02/23 Range/Units 20:05 20:38 05:44 WBC (4.50-10.00) X 10*3/uL RBC (4.40-5.60) X 10*6/uL Hgb (13.0-17.0) g/dL Hct (39.6-50.0) % RDW (11.5-14.5) % Plt Count (140-440) X 10*3/uL MPV (9.5-12.2) FL Immature Gran # (0.00-0.04) X 10*3/uL Neutrophils # (1.80-7.70) X 10*3/uL Creatinine (0.6-1.5) mg/dL Est GFR (CKD-EPI) (>=60) BUN/Creatinine Ratio (12.00-20.00) Ratio POC Glucose (mg/dL) 307 H 143 H (70-110) mg/dL Calcium (8.7-10.3) mg/dL Urine Protein 2+ H (Negative) Urine Glucose (UA) 1+ H (Negative) Urine Blood Small H (Negative) Urine RBC 8 H (0-5) /hpf Urine Mucus Rare H (None) /hpf 11/02/23 11/02/23 11/02/23 Range/Units 07:49 07:49 11:20 WBC 11.38 H (4.50-10.00) X 10*3/uL RBC 3.57 L (4.40-5.60) X 10*6/uL Hgb 10.4 L (13.0-17.0) g/dL Hct 30.9 L (39.6-50.0) % RDW 11.3 L (11.5-14.5) % Plt Count 469 H (140-440) X 10*3/uL MPV 9.0 L (9.5-12.2) FL Immature Gran # 0.05 H (0.00-0.04) X 10*3/uL Neutrophils # 8.10 H (1.80-7.70) X 10*3/uL Creatinine 2.2 H (0.6-1.5) mg/dL Est GFR (CKD-EPI) 38 L (>=60) BUN/Creatinine Ratio 7.41 L (12.00-20.00) Ratio POC Glucose (mg/dL) 124 H (70-110) mg/dL Calcium 8.3 L (8.7-10.3) mg/dL Urine Protein (Negative) Urine Glucose (UA) (Negative) Urine Blood (Negative) Urine RBC (0-5) /hpf Urine Mucus (None) /hpf 11/02/23 11/02/23 Range/Units 13:36 16:18 WBC 11.5 H (4.50-10.00) X 10*3/uL RBC 3.68 L (4.40-5.60) X 10*6/uL Hgb 10.7 L (13.0-17.0) g/dL Hct 32.3 L (39.6-50.0) % RDW (11.5-14.5) % Plt Count 534 H (140-440) X 10*3/uL MPV (9.5-12.2) FL Immature Gran # (0.00-0.04) X 10*3/uL Neutrophils # 7.8 H (1.80-7.70) X 10*3/uL Creatinine (0.6-1.5) mg/dL Est GFR (CKD-EPI) (>=60) BUN/Creatinine Ratio (12.00-20.00) Ratio POC Glucose (mg/dL) 197 H (70-110) mg/dL Calcium (8.7-10.3) mg/dL Urine Protein (Negative) Urine Glucose (UA) (Negative) Urine Blood (Negative) Urine RBC (0-5) /hpf Urine Mucus (None) /hpf Microbiology - Last 24 Hours (Table) 11/01/23 14:56 Gram Stain - Preliminary Foot - Left 10/30/23 17:30 Blood Culture - Preliminary Blood 10/30/23 17:55 Blood Culture - Preliminary Blood 10/30/23 17:26 Gram Stain - Final Foot - Left Wound Culture - Final Proteus mirabilis Assessment and Plan Assessment: Left diabetic foot infection on the plantar aspect with purulent discharge/abscess. Status post I&D by vascular surgery. Sepsis secondary to above Acute on chronic kidney disease stage III with baseline creatinine 1.2-1.9. Creatinine at admission 2.44 Uncontrolled hypertension Diabetes type 2 [id number] History of ME and cardiac catheterization. No PCI Peripheral vascular disease Bilateral peripheral neuropathy diabetic Hyperlipidemia Noncompliance with medications and follow-up. GI and DVT prophylaxis with Pepcid and heparin subcu Plan: Patient will be continued on IV hydration and continue with broad-spectrum antibiotics vancomycin and Zosyn. Antibiotics changed to Unasyn. Status post I&D by vascular surgery on 11/01/2023 Follow-up wound cultures. ID is on board . Nephrology is on board. Renal ultrasound showed no obstruction or evidence of hydronephrosis. . continue insulin sliding scale for now. Continue to follow closely. Prognosis is guarded. Time with Patient: Greater than 30
--- NOTE | 2023-11-03 10:37 | P.PN ---
Subjective Progress Note Date: 11/03/23 Patient was seen and examined this morning. Yesterday patient had quite a bit of bleeding from his surgical debridement site, pressure dressing was applied. There was some noted bleeding through the gauze however not through the pressure dressing. Patient states pain has been well-controlled. He did have a drop in his hemoglobin from 10.7-8.5 this morning. Patient denies any shortness of breath, chest pain, weakness or dizziness. He has been afebrile. Bone scan was completed yesterday afternoon which was positive centered at the third metatarsal head and third proximal phalanx. Objective - Vital Signs Vital signs: Vital Signs Temp 98.5 F 11/03/23 06:53 Pulse 85 11/03/23 06:53 Resp 16 11/03/23 06:53 BP 133/85 11/03/23 06:53 Pulse Ox 100 11/03/23 06:53 FiO2 Intake & Output 11/02/23 11/03/23 11/03/23 18:59 06:59 18:59 Intake Total 200 Output Total 1700 Balance -1500 Intake: Intake, IV Titration 200 Amount Ampicillin-Sulbactam 3 gm 200 In Sodium Chloride 0.9% 100 ml @ 200 mls/hr IVPB Q6HR [facility] Rx#:[id number] Output: Urine 1700 Other: Voiding Method Urinal # Voids 3 - Exam General appearance: The patient is alert, oriented, appears in no acute distress. HET: Head is normocephalic and atraumatic. Pupils are equal and reactive. Neck: Supple. Abdomen: Soft, nondistended. Extremities: Left foot incision with surgicel at base of incision without any active bleeding. Dressing changed with wet to dry dressing, 4x4, ABD pad and kerlix. Neurological: No focal deficits. - Labs CBC & Chem 7: 11/03/23 05:31 11/02/23 07:49 Labs: Abnormal Lab Results - Last 24 Hours (Table) 11/02/23 11/02/23 11/02/23 Range/Units 07:49 07:49 11:20 WBC 11.38 H (4.50-10.00) X 10*3/uL RBC 3.57 L (4.40-5.60) X 10*6/uL Hgb 10.4 L (13.0-17.0) g/dL Hct 30.9 L (39.6-50.0) % RDW 11.3 L (11.5-14.5) % Plt Count 469 H (140-440) X 10*3/uL MPV 9.0 L (9.5-12.2) FL Immature Gran # 0.05 H (0.00-0.04) X 10*3/uL Neutrophils # 8.10 H (1.80-7.70) X 10*3/uL Creatinine 2.2 H (0.6-1.5) mg/dL Est GFR (CKD-EPI) 38 L (>=60) BUN/Creatinine Ratio 7.41 L (12.00-20.00) Ratio POC Glucose (mg/dL) 124 H (70-110) mg/dL Calcium 8.3 L (8.7-10.3) mg/dL 11/02/23 11/02/23 11/02/23 Range/Units 13:36 16:18 20:06 WBC 11.5 H (4.50-10.00) X 10*3/uL RBC 3.68 L (4.40-5.60) X 10*6/uL Hgb 10.7 L (13.0-17.0) g/dL Hct 32.3 L (39.6-50.0) % RDW (11.5-14.5) % Plt Count 534 H (140-440) X 10*3/uL MPV (9.5-12.2) FL Immature Gran # (0.00-0.04) X 10*3/uL Neutrophils # 7.8 H (1.80-7.70) X 10*3/uL Creatinine (0.6-1.5) mg/dL Est GFR (CKD-EPI) (>=60) BUN/Creatinine Ratio (12.00-20.00) Ratio POC Glucose (mg/dL) 197 H 220 H (70-110) mg/dL Calcium (8.7-10.3) mg/dL 11/03/23 Range/Units 05:31 WBC 10.18 H (4.50-10.00) X 10*3/uL RBC 3.06 L (4.40-5.60) X 10*6/uL Hgb 8.5 L (13.0-17.0) g/dL Hct 26.5 L (39.6-50.0) % RDW (11.5-14.5) % Plt Count (140-440) X 10*3/uL MPV 9.0 L (9.5-12.2) FL Immature Gran # (0.00-0.04) X 10*3/uL Neutrophils # (1.80-7.70) X 10*3/uL Creatinine (0.6-1.5) mg/dL Est GFR (CKD-EPI) (>=60) BUN/Creatinine Ratio (12.00-20.00) Ratio POC Glucose (mg/dL) (70-110) mg/dL Calcium (8.7-10.3) mg/dL Microbiology - Last 24 Hours (Table) 10/30/23 17:30 Blood Culture - Preliminary Blood 10/30/23 17:55 Blood Culture - Preliminary Blood 11/01/23 14:56 Gram Stain - Preliminary Foot - Left Assessment and Plan Assessment: 1. Infected chronic diabetic left foot wound 2. Diabetes mellitus with peripheral neuropathy 3. History of coronary artery disease status post stenting 4. Hypertension 5. Hyperlipidemia Plan: 1. Non-weightbearing to left foot/lower extremity 2. IV antibiotics per recommendations from infectious disease 3. Daily wet-to-dry dressing change wrapped with Kerlix 4. Bone scan ordered and reviewed 5. Discussed with infectious disease, will hold off on any further surgical intervention at this time and will continue with IV antibiotics and wound care 6. Patient to follow-up with vascular surgery in 2 weeks. Thank you for this consultation. The impression and plan of care has been dictated as directed. I performed a history and examination of this patient, discussed the same with the dictator. I agree with the dictator's note ,documented as a scribe. Any additional findings or plans will be noted.
[2023-11-03] MEDS: LIDOCAINE 1% INJ 10MG/ML (10 ML MDV) SQ ONE (10:56)
--- NOTE | 2023-11-03 11:08 | P.OP ---
Date of Procedure: 11/03/23 Description of Procedure: Preoperative Diagnosis: Need for long-term IV antibiotic access. Postoperative Diagnosis: Same. Procedure(s) Performed: Ultrasound-guided cannulation right basilic vein. Insertion of peripherally inserted central catheter under fluoroscopic guidance. Anesthesia: local 1% lidocaine isatu Surgeon: Siobhan Estimated Blood Loss (ml): 5 IV fluids (ml): 0 Urine output (ml): 0 Pathology: none sent Condition: stable Disposition: no change Indications for Procedure: Patient requires long-term IV antibiotics as an outpatient patient is offered a PICC line to allow for intravenous administration of antibiotics. Description of Procedure: Patient was brought to the special procedure suite. The right upper extremity sterilely prepped and draped in usual manner. Ultrasound was utilized to identify the basilic vein which was normally compressible free of visible thrombus. Permenant image was stored. 1% Xylocaine was utilized for local anesthesia tissues overlying the vein. Through this anesthetized area and with the aid of ultrasound a micropuncture needle was utilized to cannulate the vein. Once cannulated, Softip guidewire was advanced into the vein. The needle was withdrawn and a micropuncture sheath and dilator advanced over the guidewire. The guidewire was withdrawn and exchanged for the PICC guidewire and measured 42 cm to the cavoatrial junction. The catheter was cut to size and advanced into the cavoatrial junction without resistance. The sheath was peeled away. Blood was easily withdrawn through the catheter and the catheter was then flushed with heparinized saline solution and secured to the skin. Patient tolerated procedure well and was returned to their room in satisfactory and stable condition.
[2023-11-03 11:31] LABS: Glucose,Whole Blood 187 mg/dL (70-110)
[2023-11-03 16:40] LABS: Glucose,Whole Blood 112 mg/dL (70-110)
[2023-11-03 20:38] LABS: Glucose,Whole Blood 129 mg/dL (70-110)
--- NOTE | 2023-11-03 23:09 | P.PN ---
Subjective Progress Note Date: 11/03/23 Principal diagnosis: Reason for follow-up is left diabetic foot infection/infected callus Patient is a 38-year-old -[place] male with a past medical history significant diabetes mellitus hypertension hyperlipidemia [place] coronary artery disease presenting to the hospital for evaluation of increasing pain swelling and redness to the left foot, patient be diagnosed with the infected callus and extensive diabetic foot infection. On today's evaluation that is Patient is status post Sharp excisional debridement left foot wound. Total measurements 11 x 0.9 x 1 cm to the level of bone completed on 11/01/2023 On today's evaluation that is 11/03/2023,the patient remains to be afebrile, patient is on room air not requiring supplemental oxygen and denies any shortness of breath no chest pain or cough.Patient denies having any nausea or vomiting, no abdominal pain and no diarrhea has been reported, the patient denies pain to the left foot however patient did have significant bleeding from the left foot and wound VAC has been put on hold. Patient did have a white count of 10.18 hemoglobin is down to 8.5 OR cultures currently pending Objective - Vital Signs Vital signs: Vital Signs Temp 98.5 F 11/03/23 06:53 Pulse 85 11/03/23 06:53 Resp 16 11/03/23 06:53 BP 133/85 11/03/23 06:53 Pulse Ox 100 11/03/23 06:53 FiO2 Intake & Output 11/02/23 11/03/23 11/03/23 18:59 06:59 18:59 Intake Total 200 Output Total 1700 Balance -1500 Intake: Intake, IV Titration 200 Amount Ampicillin-Sulbactam 3 gm 200 In Sodium Chloride 0.9% 100 ml @ 200 mls/hr IVPB Q6HR [facility] Rx#:[id number] Output: Urine 1700 Other: Voiding Method Urinal # Voids 3 - Exam GENERAL DESCRIPTION: Middle-age male lying in bed in no distress RESPIRATORY SYSTEM: Unlabored breathing , decreased breath sounds at bases HEART: S1 S2 regular rate and rhythm , ABDOMEN: Soft , no tenderness EXTREMITIES: Left foot wound is currently dressed with no drainage on the dressing - Labs CBC & Chem 7: 11/03/23 05:31 11/02/23 07:49 Labs: Abnormal Lab Results - Last 24 Hours (Table) 11/02/23 11/02/2311/02/24 Range/Units 07:49 07:49 11:20 WBC 11.38 H (4.50-10.00) X 10*3/uL RBC 3.57 L (4.40-5.60) X 10*6/uL Hgb 10.4 L (13.0-17.0) g/dL Hct 30.9 L (39.6-50.0) % RDW 11.3 L (11.5-14.5) % Plt Count 469 H (140-440) X 10*3/uL MPV 9.0 L (9.5-12.2) FL Immature Gran # 0.05 H (0.00-0.04) X 10*3/uL Neutrophils # 8.10 H (1.80-7.70) X 10*3/uL Creatinine 2.2 H (0.6-1.5) mg/dL Est GFR (CKD-EPI) 38 L (>=60) BUN/Creatinine Ratio 7.41 L (12.00-20.00) Ratio POC Glucose (mg/dL) 124 H (70-110) mg/dL Calcium 8.3 L (8.7-10.3) mg/dL 11/02/23 11/02/23 11/02/23 Range/Units 13:36 16:18 20:06 WBC 11.5 H (4.50-10.00) X 10*3/uL RBC 3.68 L (4.40-5.60) X 10*6/uL Hgb 10.7 L (13.0-17.0) g/dL Hct 32.3 L (39.6-50.0) % RDW (11.5-14.5) % Plt Count 534 H (140-440) X 10*3/uL MPV (9.5-12.2) FL Immature Gran # (0.00-0.04) X 10*3/uL Neutrophils # 7.8 H (1.80-7.70) X 10*3/uL Creatinine (0.6-1.5) mg/dL Est GFR (CKD-EPI) (>=60) BUN/Creatinine Ratio (12.00-20.00) Ratio POC Glucose (mg/dL) 197 H 220 H (70-110) mg/dL Calcium (8.7-10.3) mg/dL 11/03/23 Range/Units 05:31 WBC 10.18 H (4.50-10.00) X 10*3/uL RBC 3.06 L (4.40-5.60) X 10*6/uL Hgb 8.5 L (13.0-17.0) g/dL Hct 26.5 L (39.6-50.0) % RDW (11.5-14.5) % Plt Count (140-440) X 10*3/uL MPV 9.0 L (9.5-12.2) FL Immature Gran # (0.00-0.04) X 10*3/uL Neutrophils # (1.80-7.70) X 10*3/uL Creatinine (0.6-1.5) mg/dL Est GFR (CKD-EPI) (>=60) BUN/Creatinine Ratio (12.00-20.00) Ratio POC Glucose (mg/dL) (70-110) mg/dL Calcium (8.7-10.3) mg/dL Microbiology - Last 24 Hours (Table) 10/30/23 17:30 Blood Culture - Preliminary Blood 10/30/23 17:55 Blood Culture - Preliminary Blood 11/01/23 14:56 Gram Stain - Preliminary Foot - Left Assessment and Plan (1) Diabetic foot infection Current Visit: Yes Status: Acute Code(s): E11.628 - TYPE 2 DIABETES MELLITUS WITH OTHER SKIN COMPLICATIONS; L08.9 - LOCAL INFECTION OF THE SKIN AND SUBCUTANEOUS TISSUE, UNSP SNOMED Code(s): 222166549 (2) Foot abscess, right Current Visit: Yes Status: Acute Code(s): L02.611 - CUTANEOUS ABSCESS OF RIGHT FOOT SNOMED Code(s): 08165217041676255 (3) Infected wound Current Visit: Yes Status: Acute Code(s): T14.8XXA - OTHER INJURY OF UNSPECIFIED BODY REGION, INITIAL ENCOUNTER; L08.9 - LOCAL INFECTION OF THE SKIN AND SUBCUTANEOUS TISSUE, UNSP SNOMED Code(s): 30645248 Plan: 1patient presented to hospital with extensive left diabetic infection in this patient who did have a callus on the plantar aspect likely infected callus and an abscess and will need to cover for the polymicrobial skye usually associated with diabetic foot infection 2-patient with renal insufficiency high risk of nephrotoxicity 3-patient is status post sharp excisional debridement left foot wound. Total measurements 11 x 0.9 x 1 cm to the level of bone 4-patient initial cultures with Proteus OR cultures pending continue with Unasyn PICC line has been requested for outpatient IV antibiotic therapy holding discharge today because of significant bleeding yesterday and drop in hemoglobin and waiting for the OR cultures to finalize Dictation was produced using [employer] dictation software. please excuse any grammatical, word or spelling errors. Time with Patient: Less than 30
--- NOTE | 2023-11-04 03:03 | P.PN ---
Subjective Progress Note Date: 11/03/23 Patient is a 38-year-old male with past medical history of diabetes type 2, CKD stage III, coronary artery disease with prior cardiac catheterization, hypertension, hyperlipidemia, bilateral peripheral neuropathy diabetes and noncompliance with medications presents to ER with complaints of left foot wound on the plantar surface. Patient has been having infection for a while and started draining with purulent discharge for the past 4 to 5 days. 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 Otherwise patient denies any fever or chills. Denies any injury. No complaints of chest pain or shortness of breath. No nausea vomiting abdominal pain or diarrhea. No cough or sputum production. Denies any recent illnesses. X-ray of the foot showed there is evidence of diffuse soft tissue swelling of the forefoot and midfoot., Extending to involve the hindfoot. No focal soft tissue findings other than atherosclerotic arterial calcifications. EKG showed sinus rhythm. Laboratory showed WBC 14.9 hemoglobin 11.1 and platelets 466 Sodium 135 potassium 4.3 chloride 102 bicarb is 26 BUN 23 and creatinine 2.44 and blood sugar 258. Lactic acid 0.8. Liver enzymes are not elevated. On admission blood pressure was 163/104 pulse 111 respiration 18 and pulse ox 100% on room air. 11/01/2023 Patient is currently resting in bed. Awake alert and oriented 3. No complaints of chest pain or shortness of breath. No cough or sputum production. No headache or dizziness or lightheadedness. Foot pain is slightly improved. Still having purulent discharge. Scheduled for I&D today. Laboratory data showed WBC 9.94, hemoglobin 10.7 and platelets 492, sodium 134 potassium 4.6 chloride 107 bicarb is 24 BUN 19 and creatinine 2.33 and blood sugar 114. A1c is 6.9 and calcium 8.3 11/02/2023 Patient is status post I&D of the left foot. Wound dressing in place. Patient does have bleeding from the wound site.. Vascular surgery is following. Otherwise patient is afebrile. Next and no complaints of chest pain or shortness of breath. Tolerating oral diet. No headache or dizziness or lightheadedness. Pain is fairly controlled. Laboratory data showed WBC 11.3 hemoglobin 10.4 and platelets 469, BUN 16.3 and creatinine 2.2 and blood sugar 105. Patient is being continued on Unasyn. Also on IV hydration with normal saline at 75 mL per hour 11/03/2023 Patient is currently resting in the bed. Awake alert and oriented x 3. No complaints of chest pain or shortness of breath. Advised left foot surgical site was bleeding yesterday which is much improved now. Redressing was done by vascular surgery. Awaiting final culture report. Pain is controlled. No complaints of fever or chills. No nausea vomiting abdominal pain or diarrhea. Tolerating oral diet. Laboratory data showed WBC 10.1 hemoglobin 8.5 and platelets 416. Blood sugar is better controlled. Current medications reviewed. Objective - Vital Signs Vital signs: Vital Signs Temp 98.5 F 11/03/23 06:53 Pulse 85 11/03/23 06:53 Resp 16 11/03/23 06:53 BP 133/85 11/03/23 06:53 Pulse Ox 100 11/03/23 06:53 FiO2 Intake & Output 11/02/23 11/03/23 11/03/23 18:59 06:59 18:59 Intake Total 200 Output Total 1700 Balance -1500 Intake: Intake, IV Titration 200 Amount Ampicillin-Sulbactam 3 gm 200 In Sodium Chloride 0.9% 100 ml @ 200 mls/hr IVPB Q6HR [facility] Rx#:[id number] Output: Urine 1700 Other: Voiding Method Urinal # Voids 3 - Exam PHYSICAL EXAMINATION: Patient is lying in the bed comfortably, no acute distress, awake alert and kris ented.. HEENT: Normocephalic. Neck is supple. Pupils reactive. Nostrils clear. Oral cavity is moist. Neck reveals no JVD, carotid bruits, or thyromegaly. CHEST EXAMINATION: Trachea is central. Symmetrical expansion. Lung juan clear to auscultation and percussion. CARDIAC: Normal S1, S2 with no gallops. No murmurs ABDOMEN: Soft. Bowel sounds present. Nontender. No organomegaly. No abdominal bruits. Extremities: reveal no edema. No clubbing or cyanosis. Left foot surgical site is bandaged. Neurologically awake, alert, oriented x3 with well-coordinated movements. No focal deficits noted Skin: No rash or skin lesions. Left foot wound is wrapped.. Psychiatric: Coperative. Nonsuicidal, Musculoskeletal: No joint swelling or deformity. Normal range of motion. - Labs CBC & Chem 7: 11/03/23 05:31 11/02/23 07:49 Labs: Abnormal Lab Results - Last 24 Hours (Table) 11/02/23 11/02/23 11/02/23 Range/Units 07:49 07:49 11:20 WBC 11.38 H (4.50-10.00) X 10*3/uL RBC 3.57 L (4.40-5.60) X 10*6/uL Hgb 10.4 L (13.0-17.0) g/dL Hct 30.9 L (39.6-50.0) % RDW 11.3 L (11.5-14.5) % Plt Count 469 H (140-440) X 10*3/uL MPV 9.0 L (9.5-12.2) FL Immature Gran # 0.05 H (0.00-0.04) X 10*3/uL Neutrophils # 8.10 H (1.80-7.70) X 10*3/uL Creatinine 2.2 H (0.6-1.5) mg/dL Est GFR (CKD-EPI) 38 L (>=60) BUN/Creatinine Ratio 7.41 L (12.00-20.00) Ratio POC Glucose (mg/dL) 124 H (70-110) mg/dL Calcium 8.3 L (8.7-10.3) mg/dL 11/02/23 11/02/23 11/02/23 Range/Units 13:36 16:18 20:06 WBC 11.5 H (4.50-10.00) X 10*3/uL RBC 3.68 L (4.40-5.60) X 10*6/uL Hgb 10.7 L (13.0-17.0) g/dL Hct 32.3 L (39.6-50.0) % RDW (11.5-14.5) % Plt Count 534 H (140-440) X 10*3/uL MPV (9.5-12.2) FL Immature Gran # (0.00-0.04) X 10*3/uL Neutrophils # 7.8 H (1.80-7.70) X 10*3/uL Creatinine (0.6-1.5) mg/dL Est GFR (CKD-EPI) (>=60) BUN/Creatinine Ratio (12.00-20.00) Ratio POC Glucose (mg/dL) 197 H 220 H (70-110) mg/dL Calcium (8.7-10.3) mg/dL 11/03/23 Range/Units 05:31 WBC 10.18 H (4.50-10.00) X 10*3/uL RBC 3.06 L (4.40-5.60) X 10*6/uL Hgb 8.5 L (13.0-17.0) g/dL Hct 26.5 L (39.6-50.0) % RDW (11.5-14.5) % Plt Count (140-440) X 10*3/uL MPV 9.0 L (9.5-12.2) FL Immature Gran # (0.00-0.04) X 10*3/uL Neutrophils # (1.80-7.70) X 10*3/uL Creatinine (0.6-1.5) mg/dL Est GFR (CKD-EPI) (>=60) BUN/Creatinine Ratio (12.00-20.00) Ratio POC Glucose (mg/dL) (70-110) mg/dL Calcium (8.7-10.3) mg/dL Microbiology - Last 24 Hours (Table) 10/30/23 17:30 Blood Culture - Preliminary Blood 10/30/23 17:55 Blood Culture - Preliminary Blood 11/01/23 14:56 Gram Stain - Preliminary Foot - Left Assessment and Plan Assessment: Left diabetic foot infection on the plantar aspect with purulent discharge/abscess. Status post I&D by vascular surgery. Sepsis secondary to above Acute on chronic kidney disease stage III with baseline creatinine 1.2-1.9. Creatinine at admission 2.44 Uncontrolled hypertension Diabetes type 2 [id number] History of [place] and cardiac catheterization. No PCI Peripheral vascular disease Bilateral peripheral neuropathy diabetic Hyperlipidemia Noncompliance with medications and follow-up. GI and DVT prophylaxis with Pepcid and heparin subcu Plan: Patient will be continued on IV hydration and continue with broad-spectrum antibiotics vancomycin and Zosyn. Antibiotics changed to Unasyn. Status post I&D by vascular surgery on 11/01/2023 Follow-up wound cultures. ID is on board . Monitor H&H due to bleeding from the surgical site. Nephrology is on board. Renal ultrasound showed no obstruction or evidence of hydronephrosis. . continue insulin sliding scale for now. Continue to follow closely. Prognosis is guarded. Time with Patient: Greater than 30
[2023-11-04 05:58] LABS: Glucose,Whole Blood 118 mg/dL (70-110)
[2023-11-04 10:00] LABS: Basophils # (A) 0.07 X 10*3/uL (0.00-0.10); Basophils % (A) 0.7 %; Eosinophils # (A) 0.29 X 10*3/uL (0.04-0.35); Eosinophils % (A) 2.9 %; HGB 8.3 g/dL (13.0-17.0); Lymphocytes # (A) 2.46 X 10*3/uL (0.90-5.00); Lymphocytes % (A) 24.8 %; MCH 28.6 pg (27.0-32.0); MCHC 33.2 g/dL (32.0-37.0); MCV 86.2 FL (80.0-97.0); Mean Platelet Volume 8.9 FL (9.5-12.2); Monocytes # (A) 0.78 X 10*3/uL (0.20-1.00); Monocytes % (A) 7.9 %; NRBC Per 100 WBC 0 X 10*3/uL (0.00-0.01); Neutrophils # (A) 6.23 X 10*3/uL (1.80-7.70); Neutrophils % (A) 62.9 %; Platelet Count 410 X 10*3/uL (140-440); RDW 11.5 % (11.5-14.5); WBC 9.91 X 10*3/uL (4.50-10.00)
--- NOTE | 2023-11-04 10:41 | P.PN ---
Subjective Patient is seen for follow-up for chronic kidney disease and acute kidney injury. Currently maintained on IV fluids. Serum creatinine at 2.2 on 11/02/2023. Good urine output. No further bleeding from left foot wound. Objective - Vital Signs Vital signs: Vital Signs Temp 97.6 F 11/04/23 07:33 Pulse 82 11/04/23 07:33 Resp 17 11/04/23 07:33 BP 144/88 11/04/23 07:33 Pulse Ox 100 11/04/23 07:33 FiO2 Intake & Output 11/03/23 11/04/23 11/04/23 18:59 06:59 18:59 Intake Total 118 Output Total 2600 Balance -2600 118 Weight 97.069 kg Intake: Oral 118 Output: Urine 2600 Other: Voiding Method Urinal # Voids 4 3 # Bowel Movements 1 - Exam Patient is awake, comfortable, no acute distress Alert oriented x 3 Examination of the heart S1 and S2 Examination of the lungs bilateral breath sounds are heard Patient is euvolemic with no evidence of edema in the lower extremities. Abdomen is soft nontender Left foot is wrapped. - Labs CBC & Chem 7: 11/04/23 05:40 11/02/23 07:49 Labs: Abnormal Lab Results - Last 24 Hours (Table) 11/03/23 11/03/23 11/03/23 Range/Units 11:29 16:38 20:36 RBC (4.40-5.60) X 10*6/uL Hgb (13.0-17.0) g/dL Hct (39.6-50.0) % MPV (9.5-12.2) FL Immature Gran # (0.00-0.04) X 10*3/uL POC Glucose (mg/dL) 187 H 112 H 129 H (70-110) mg/dL 11/04/23 11/04/23 Range/Units 05:40 05:57 RBC 2.90 L (4.40-5.60) X 10*6/uL Hgb 8.3 L (13.0-17.0) g/dL Hct 25.0 L (39.6-50.0) % MPV 8.9 L (9.5-12.2) FL Immature Gran # 0.08 H (0.00-0.04) X 10*3/uL POC Glucose (mg/dL) 118 H (70-110) mg/dL Microbiology - Last 24 Hours (Table) 11/01/23 14:56 Gram Stain - Final Foot - Left Wound Culture - Final Pasteurella multocida Assessment and Plan Assessment: 1. Acute kidney injury, ATN secondary to underlying infection and secondary to NSAIDs. Currently nonoliguric. UA shows 2+ protein and small blood. No evidence of hydronephrosis on ultrasound of the kidneys. Maintained on IV fluids. 2. Left foot wound maintained on antibiotics, status post debridement on 11/01/2023 3. Chronic kidney disease and Stage IIIb with previous creatinine 1.9 on 01/03/2022. Etiology likely diabetic kidney disease. 4. Hypertension, uncontrolled. Started on carvedilol Plan: Continue IV fluids. Increase carvedilol Patient will need to follow-up as outpatient for chronic kidney disease.
--- NOTE | 2023-11-04 10:42 | P.PN ---
Subjective Patient is seen for follow-up for chronic kidney disease and acute kidney injury. Currently maintained on IV fluids. Serum creatinine at 2.2 on 11/02/2023. Good urine output. No further bleeding from left foot wound. Status post PICC line in the right arm Objective - Vital Signs Vital signs: Vital Signs Temp 97.6 F 11/04/23 07:33 Pulse 82 11/04/23 07:33 Resp 17 11/04/23 07:33 BP 144/88 11/04/23 07:33 Pulse Ox 100 11/04/23 07:33 FiO2 Intake & Output 11/03/23 11/04/23 11/04/23 18:59 06:59 18:59 Intake Total 118 Output Total 2600 Balance -2600 118 Weight 97.069 kg Intake: Oral 118 Output: Urine 2600 Other: Voiding Method Urinal # Voids 4 3 # Bowel Movements 1 - Exam Patient is awake, comfortable, no acute distress Alert oriented x 3 Examination of the heart S1 and S2 Examination of the lungs bilateral breath sounds are heard Patient is euvolemic with no evidence of edema in the lower extremities. Abdomen is soft nontender Left foot is wrapped. - Labs CBC & Chem 7: 11/04/23 05:40 11/02/23 07:49 Labs: Abnormal Lab Results - Last 24 Hours (Table) 11/03/23 11/03/23 11/03/23 Range/Units 11:29 16:38 20:36 RBC (4.40-5.60) X 10*6/uL Hgb (13.0-17.0) g/dL Hct (39.6-50.0) % MPV (9.5-12.2) FL Immature Gran # (0.00-0.04) X 10*3/uL POC Glucose (mg/dL) 187 H 112 H 129 H (70-110) mg/dL 11/04/23 11/04/23 Range/Units 05:40 05:57 RBC 2.90 L (4.40-5.60) X 10*6/uL Hgb 8.3 L (13.0-17.0) g/dL Hct 25.0 L (39.6-50.0) % MPV 8.9 L (9.5-12.2) FL Immature Gran # 0.08 H (0.00-0.04) X 10*3/uL POC Glucose (mg/dL) 118 H (70-110) mg/dL Microbiology - Last 24 Hours (Table) 11/01/23 14:56 Gram Stain - Final Foot - Left Wound Culture - Final Pasteurella multocida Assessment and Plan Assessment: 1. Acute kidney injury, ATN secondary to underlying infection and secondary to NSAIDs. Currently nonoliguric. UA shows 2+ protein and small blood. No evidence of hydronephrosis on ultrasound of the kidneys. Maintained on IV fluids. 2. Left foot wound maintained on antibiotics, status post debridement on 3. Chronic kidney disease and Stage IIIb with previous creatinine 1.9 on 01/03/2022. Etiology likely diabetic kidney disease. 4. Hypertension, uncontrolled. Started on carvedilol Plan: Continue IV fluids. Check labs today Increase carvedilol Patient will need to follow-up as outpatient for chronic kidney disease.
[2023-11-04 11:29] LABS: Glucose,Whole Blood 117 mg/dL (70-110)
--- NOTE | 2023-11-04 11:33 | P.PN ---
Subjective Progress Note Date: 11/04/23 Principal diagnosis: Reason for follow-up is left diabetic foot infection/infected callus Patient is a 38-year-old -Citizen Of [place] male with a past medical history significant diabetes mellitus hypertension hyperlipidemia [place] coronary artery disease presenting to the hospital for evaluation of increasing pain swelling and redness to the left foot, patient be diagnosed with the infected callus and extensive diabetic foot infection. On today's evaluation that is Patient is status post Sharp excisional debridement left foot wound. Total measurements 11 x 0.9 x 1 cm to the level of bone completed on 11/01/2023 On today's evaluation that is 11/04/2023, the patient continues to be afebrile, the patient is on room air and breathing comfortably, the Pt denies having any chest pain or cough, the patient denies having any abdominal pain no vomiting or any diarrhea has been reported by the nursing staff, patient denies further bleeding from his left foot and pain has decreased in intensity. Patient white count is 9.91, or cultures growing Pasteurella and initial culture positive for Proteus Objective - Vital Signs Vital signs: Vital Signs Temp 97.6 F 11/04/23 07:33 Pulse 82 11/04/23 07:33 Resp 17 11/04/23 07:33 BP 144/88 11/04/23 07:33 Pulse Ox 100 11/04/23 07:33 FiO2 Intake & Output 11/03/23 11/04/23 11/04/23 18:59 06:59 18:59 Intake Total 118 Output Total 2600 Balance -2600 118 Weight 97.069 kg Intake: Oral 118 Output: Urine 2600 Other: Voiding Method Urinal # Voids 4 3 # Bowel Movements 1 - Exam GENERAL DESCRIPTION: Middle-age male lying in bed in no distress RESPIRATORY SYSTEM: Unlabored breathing , decreased breath sounds at bases HEART: S1 S2 regular rate and rhythm , ABDOMEN: Soft , no tenderness EXTREMITIES: Left foot wound is currently dressed with no drainage on the dressing - Labs CBC & Chem 7: 11/04/23 05:40 11/02/23 07:49 Labs: Abnormal Lab Results - Last 24 Hours (Table) 11/03/23 11/03/23 11/03/23 Range/Units 11:29 16:38 20:36 RBC (4.40-5.60) X 10*6/uL Hgb (13.0-17.0) g/dL Hct (39.6-50.0) % MPV (9.5-12.2) FL Immature Gran # (0.00-0.04) X 10*3/uL POC Glucose (mg/dL) 187 H 112 H 129 H (70-110) mg/dL 11/04/23 11/04/23 11/04/23 Range/Units 05:40 05:57 11:27 RBC 2.90 L (4.40-5.60) X 10*6/uL Hgb 8.3 L (13.0-17.0) g/dL Hct 25.0 L (39.6-50.0) % MPV 8.9 L (9.5-12.2) FL Immature Gran # 0.08 H (0.00-0.04) X 10*3/uL POC Glucose (mg/dL) 118 H 117 H (70-110) mg/dL Microbiology - Last 24 Hours (Table) 11/01/23 14:56 Gram Stain - Final Foot - Left Wound Culture - Final Pasteurella multocida Assessment and Plan (1) Diabetic foot infection Current Visit: Yes Status: Acute Code(s): E11.628 - TYPE 2 DIABETES MELLITUS WITH OTHER SKIN COMPLICATIONS; L08.9 - LOCAL INFECTION OF THE SKIN AND SUBCUTANEOUS TISSUE, UNSP SNOMED Code(s): 565036401 (2) Foot abscess, right Current Visit: Yes Status: Acute Code(s): L02.611 - CUTANEOUS ABSCESS OF RIGHT FOOT SNOMED Code(s): 27707772739958604 (3) Infected wound Current Visit: Yes Status: Acute Code(s): T14.8XXA - OTHER INJURY OF UNS PECIFIED BODY REGION, INITIAL ENCOUNTER; L08.9 - LOCAL INFECTION OF THE SKIN AND SUBCUTANEOUS TISSUE, UNSP SNOMED Code(s): 83882391 Plan: 1patient presented to hospital with extensive left diabetic infection in this patient who did have a callus on the plantar aspect likely infected callus and an abscess and will need to cover for the polymicrobial skye usually associated with diabetic foot infection 2-patient with renal insufficiency high risk of nephrotoxicity 3-patient is status post sharp excisional debridement left foot wound. Total measurements 11 x 0.9 x 1 cm to the level of bone 4-patient initial cultures with Proteus OR cultures currently growing Pasteurella, patient admitted to having the cat 5we will go to the patient on Unasyn plan is to switch to IV Rocephin and Flagyl on discharge Dictation was produced using [employer] dictation software. please excuse any grammatical, word or spelling errors. Time with Patient: Less than 30
[2023-11-04 11:38] LABS: BUN/Creat Ratio 9.89 Ratio (12.00-20.00); Blood Urea Nitrogen 26.7 mg/dL (9.0-27.0); Calcium 8.4 mg/dL (8.7-10.3); Carbon Dioxide 25.8 mmol/L (21.6-31.8); Chloride 103 mmol/L (96-109); Glucose 109 mg/dL (70-110); Potassium 4.6 mmol/L (3.5-5.5); Sodium 138 mmol/L (135-145)
[2023-11-04 16:44] LABS: Glucose,Whole Blood 182 mg/dL (70-110)
--- NOTE | 2023-11-04 19:40 | P.PN ---
Subjective Patient is a 38-year-old male with past medical history of diabetes type 2, CKD stage III, coronary artery disease with prior cardiac catheterization, hypertension, hyperlipidemia, bilateral peripheral neuropathy diabetes and noncompliance with medications presents to ER with complaints of left foot wound on the plantar surface. Patient has been having infection for a while and started draining with purulent discharge for the past 4 to 5 days. Patient went to see his sap fico architect today and was stated to go to the hospital for IV antibiotics. Otherwise patient denies any fever or chills. Denies any injury. No complaints of chest pain or shortness of breath. No nausea vomiting abdominal pain or diarrhea. No cough or sputum production. Denies any recent illnesses. X-ray of the foot showed there is evidence of diffuse soft tissue swelling of the forefoot and midfoot., Extending to involve the hindfoot. No focal soft tissue findings other than atherosclerotic arterial calcifications. EKG showed sinus rhythm. Laboratory showed WBC 14.9 hemoglobin 11.1 and platelets 466 Sodium 135 potassium 4.3 chloride 102 bicarb is 26 BUN 23 and creatinine 2.44 and blood sugar 258. Lactic acid 0.8. Liver enzymes are not elevated. On admission blood pressure was 163/104 pulse 111 respiration 18 and pulse ox 100% on room air. 11/01/2023 Patient is currently resting in bed. Awake alert and oriented 3. No complaints of chest pain or shortness of breath. No cough or sputum production. No headache or dizziness or lightheadedness. Foot pain is slightly improved. Still having purulent discharge. Scheduled for I&D today. Laboratory data showed WBC 9.94, hemoglobin 10.7 and platelets 492, sodium 134 potassium 4.6 chloride 107 bicarb is 24 BUN 19 and creatinine 2.33 and blood sugar 114. A1c is 6.9 and calcium 8.3 11/02/2023 Patient is status post I&D of the left foot. Wound dressing in place. Patient does have bleeding from the wound site.. Vascular surgery is following. Otherwise patient is afebrile. Next and no complaints of chest pain or shortness of breath. Tolerating oral diet. No headache or dizziness or lighth eadedness. Pain is fairly controlled. Laboratory data showed WBC 11.3 hemoglobin 10.4 and platelets 469, BUN 16.3 and creatinine 2.2 and blood sugar 105. Patient is being continued on Unasyn. Also on IV hydration with normal saline at 75 mL per hour 11/03/2023 Patient is currently resting in the bed. Awake alert and oriented x 3. No complaints of chest pain or shortness of breath. Advised left foot surgical site was bleeding yesterday which is much improved now. Redressing was done by vascular surgery. Awaiting final culture report. Pain is controlled. No complaints of fever or chills. No nausea vomiting abdominal pain or diarrhea. Tolerating oral diet. Laboratory data showed WBC 10.1 hemoglobin 8.5 and platelets 416. Blood sugar is better controlled. 11/04/2023 Severe left diabetic foot sores and cellulitis with evidence of osteomyelitis on bone scan Status post excision and drainage on 11/01/2023. Culture is growing Proteus pending final results Currently covered with Unasyn Patient requires IV antibiotics upon discharge Objective - Vital Signs Vital signs: Vital Signs Temp 98.8 F 11/04/23 14:00 Pulse 83 11/04/23 14:00 Resp 18 11/04/23 14:00 BP 156/103 11/04/23 14:00 Pulse Ox 100 11/04/23 14:00 FiO2 Intake & Output 11/03/23 11/04/23 11/04/23 18:59 06:59 18:59 Intake Total 118 Output Total 2600 Balance -2600 118 Weight 97.069 kg Intake: Oral 118 Output: Urine 2600 Other: Voiding Method Urinal # Voids 4 3 # Bowel Movements 1 - Exam GENERAL: The patient is alert and oriented x3, not in any acute distress. Well developed, well nourished. HEENT: Pupils are round and equally reacting to light. EOMI. No scleral icterus. No conjunctival pallor. Normocephalic, atraumatic. No pharyngeal erythema. No thyromegaly. CARDIOVASCULAR: S1 and S2 present. No murmurs, rubs, or gallops. PULMONARY: Chest is clear to auscultation, no wheezing , no crackles. ABDOMEN: Soft, nontender, nondistended, normoactive bowel sounds. No palpable organomegaly. MUSCULOSKELETAL: No joint swelling or deformity. -EXTREMITIES: No cyanosis, clubbing, or pedal edema. Left foot diabetic ulcer with dressing in place, cellulitis improving NEUROLOGICAL: Gross neurological examination did not reveal any focal deficits. SKIN: No rashes. no petechiae. - Labs CBC & Chem 7: 11/04/23 05:40 11/04/23 05:40 Labs: Abnormal Lab Results - Last 24 Hours (Table) 11/03/23 11/03/23 11/04/23 Range/Units 16:38 20:36 05:40 RBC 2.90 L (4.40-5.60) X 10*6/uL Hgb 8.3 L (13.0-17.0) g/dL Hct 25.0 L (39.6-50.0) % MPV 8.9 L (9.5-12.2) FL Immature Gran # 0.08 H (0.00-0.04) X 10*3/uL Creatinine (0.6-1.5) mg/dL Est GFR (CKD-EPI) (>=60) BUN/Creatinine Ratio (12.00-20.00) Ratio POC Glucose (mg/dL) 112 H 129 H (70-110) mg/dL Calcium (8.7-10.3) mg/dL 11/04/23 11/04/23 11/04/23 Range/Units 05:40 05:57 11:27 RBC (4.40-5.60) X 10*6/uL Hgb (13.0-17.0) g/dL Hct (39.6-50.0) % MPV (9.5-12.2) FL Immature Gran # (0.00-0.04) X 10*3/uL Creatinine 2.7 H (0.6-1.5) mg/dL Est GFR (CKD-EPI) 30 L (>=60) BUN/Creatinine Ratio 9.89 L (12.00-20.00) Ratio POC Glucose (mg/dL) 118 H 117 H (70-110) mg/dL Calcium 8.4 L (8.7-10.3) mg/dL Microbiology - Last 24 Hours (Table) 11/01/23 14:56 Gram Stain - Final Foot - Left Wound Culture - Final Pasteurella multocida Assessment and Plan Assessment: Left diabetic foot infection on the plantar aspect with purulent discharge/abscess. Status post I&D by vascular surgery. Sepsis secondary to above Acute on chronic kidney disease stage III with baseline creatinine 1.2-1.9. Creatinine at admission 2.44 Uncontrolled hypertension Diabetes type 2 [id number] History of PR and cardiac catheterization. No PCI Peripheral vascular disease Bilateral peripheral neuropathy diabetic Hyperlipidemia Noncompliance with medications and follow-up. GI and DVT prophylaxis with Pepcid and heparin subcu Plan: Patient will be continued on IV hydration and continue with broad-spectrum antibiotics Unasyn. Status post I&D by vascular surgery on 11/01/2023 Follow-up wound cultures. ID is on board . Monitor H&H due to bleeding from the surgical site. Nephrology is on board. Renal ultrasound showed no obstruction or evidence of hydronephrosis. . continue insulin sliding scale for now. Continue to follow closely. Prognosis is guarded.
[2023-11-04 21:10] LABS: Glucose,Whole Blood 142 mg/dL (70-110)
[2023-11-05 05:49] LABS: Glucose,Whole Blood 117 mg/dL (70-110)
[2023-11-05 08:36] LABS: Basophils % (A) 0 %; Eosinophils # (A) 0.2 k/uL (0-0.7); Eosinophils % (A) 2 %; HCT 25.8 % (39.0-53.0); Lymphocytes # (A) 2.6 k/uL (1.0-4.8); Lymphocytes % (A) 27 %; MCH 28.8 pg (25.0-35.0); MCHC 33.1 g/dL (31.0-37.0); MCV 86.8 fL (80.0-100.0); Monocytes # (A) 0.5 k/uL (0-1.0); Monocytes % (A) 5 %; Neutrophils % (A) 63 %; Platelet Count 459 k/uL (150-450); RBC 2.97 m/uL (4.30-5.90); RDW 12.2 % (11.5-15.5); WBC 9.6 k/uL (3.8-10.6)
[2023-11-05 08:38] LABS: HGB 8.5 gm/dL (13.0-17.5)
[2023-11-05 08:41] LABS: African American GFR (CKD) 33 (>60 ml/min/1.73 sqM); Anion Gap 4 mmol/L; Blood Urea Nitrogen 29 mg/dL (9-20); Calcium 8.5 mg/dL (8.4-10.2); Carbon Dioxide 24 mmol/L (22-30); Chloride 108 mmol/L (98-107); Glucose 101 mg/dL (74-99); Non-African American GFR(CKD) 28 (>60 ml/min/1.73 sqM); Potassium 4.6 mmol/L (3.5-5.1); Sodium 136 mmol/L (137-145)
[2023-11-05 11:16] LABS: Glucose,Whole Blood 107 mg/dL (70-110)
--- NOTE | 2023-11-05 11:27 | P.PN ---
Subjective Patient is seen for follow-up for chronic kidney disease and acute kidney injury. Currently maintained on IV fluids. Serum creatinine at 2.6 Good urine output. No further bleeding from left foot wound. Status post PICC line in the right arm Objective - Vital Signs Vital signs: Vital Signs Temp 97.8 F 11/05/23 07:32 Pulse 74 11/05/23 07:32 Resp 17 11/05/23 07:32 BP 121/78 11/05/23 07:32 Pulse Ox 98 11/05/23 07:32 FiO2 Intake & Output 11/04/23 11/05/23 11/05/23 18:59 06:59 18:59 Intake Total 118 Balance 118 Intake: Oral 118 Other: # Voids 3 3 - Exam Patient is awake, comfortable, no acute distress Alert oriented x 3 Patient is euvolemic with no evidence of edema in the lower extremities. Abdomen is soft nontender Left foot is wrapped. - Labs CBC & Chem 7: 11/05/23 06:33 11/05/23 06:33 Labs: Abnormal Lab Results - Last 24 Hours (Table) 11/04/23 11/04/23 11/04/23 Range/Units 05:40 11:27 16:42 RBC (4.30-5.90) m/uL Hgb (13.0-17.5) gm/dL Hct (39.0-53.0) % Plt Count (150-450) k/uL Sodium (137-145) mmol/L Chloride (98-107) mmol/L BUN (9-20) mg/dL Creatinine 2.7 H (0.6-1.5) mg/dL Est GFR (CKD-EPI) 30 L (>=60) BUN/Creatinine Ratio 9.89 L (12.00-20.00) Ratio Glucose (74-99) mg/dL POC Glucose (mg/dL) 117 H 182 H (70-110) mg/dL Calcium 8.4 L (8.7-10.3) mg/dL 11/04/23 11/05/23 11/05/23 Range/Units 21:08 05:46 06:33 RBC 2.97 L (4.30-5.90) m/uL Hgb 8.5 L D (13.0-17.5) gm/dL Hct 25.8 L (39.0-53.0) % Plt Count 459 H (150-450) k/uL Sodium (137-145) mmol/L Chloride (98-107) mmol/L BUN (9-20) mg/dL Creatinine (0.6-1.5) mg/dL Est GFR (CKD-EPI) (>=60) BUN/Creatinine Ratio (12.00-20.00) Ratio Glucose (74-99) mg/dL POC Glucose (mg/dL) 142 H 117 H (70-110) mg/dL Calcium (8.7-10.3) mg/dL 11/05/23 Range/Units 06:33 RBC (4.30-5.90) m/uL Hgb (13.0-17.5) gm/dL Hct (39.0-53.0) % Plt Count (150-450) k/uL Sodium 136 L (137-145) mmol/L Chloride 108 H (98-107) mmol/L BUN 29 H (9-20) mg/dL Creatinine 2.69 H (0.6-1.5) mg/dL Est GFR (CKD-EPI) (>=60) BUN/Creatinine Ratio (12.00-20.00) Ratio Glucose 101 H (74-99) mg/dL POC Glucose (mg/dL) (70-110) mg/dL Calcium (8.7-10.3) mg/dL Microbiology - Last 24 Hours (Table) 10/30/23 17:30 Blood Culture - Final Blood 10/30/23 17:55 Blood Culture - Final Blood 11/01/23 14:56 Anaerobic Culture - Preliminary Foot - Left Assessment and Plan Assessment: 1. Acute kidney injury, ATN secondary to underlying infection and secondary to NSAIDs. Currently nonoliguric. UA shows 2+ protein and small blood. No evidence of hydronephrosis on ultrasound of the kidneys. Maintained on IV fluids. 2. Left foot wound maintained on antibiotics, status post debridement on 11/01/2023 3. Chronic kidney disease and Stage IIIb with previous creatinine 1.9 on 01/03/2022. Etiology likely diabetic kidney disease. 4. Hypertension, uncontrolled. Started on carvedilol Plan: DC IV fluids Increase carvedilol Patient will need to follow-up as outpatient for chronic kidney disease.
--- NOTE | 2023-11-05 13:30 | P.PN ---
Subjective Progress Note Date: 11/05/23 38-year-old male with past medical history of diabetes type 2, CKD stage III, coronary artery disease with prior cardiac catheterization, hypertension, hyperlipidemia, bilateral peripheral neuropathy diabetes and noncompliance with medications presents to ER with complaints of left foot wound on the plantar surface. Patient has been having infection for a while and started draining with purulent discharge for the past 4 to 5 days. Patient went to see his nurse chemical dependency today and was stated to go to the hospital for IV antibiotics. Otherwise patient denies any fever or chills. Denies any injury. No complaints of chest pain or shortness of breath. No nausea vomiting abdominal pain or diarrhea. No cough or sputum production. Denies any recent illnesses. X-ray of the foot showed there is evidence of diffuse soft tissue swelling of the forefoot and midfoot., Extending to involve the hindfoot. No focal soft tissue findings other than atherosclerotic arterial calcifications. EKG showed sinus rhythm. Laboratory showed WBC 14.9 hemoglobin 11.1 and platelets 466 Sodium 135 potassium 4.3 chloride 102 bicarb is 26 BUN 23 and creatinine 2.44 and blood sugar 258. Lactic acid 0.8. Liver enzymes are not elevated. On admission blood pressure was 163/104 pulse 111 respiration 18 and pulse ox 100% on room air. 11/01/2023 Patient is currently resting in bed. Awake alert and oriented 3. No co mplaints of chest pain or shortness of breath. No cough or sputum production. No headache or dizziness or lightheadedness. Foot pain is slightly improved. Still having purulent discharge. Scheduled for I&D today. Laboratory data showed WBC 9.94, hemoglobin 10.7 and platelets 492, sodium 134 potassium 4.6 chloride 107 bicarb is 24 BUN 19 and creatinine 2.33 and blood sugar 114. A1c is 6.9 and calcium 8.3 11/02/2023 Patient is status post I&D of the left foot. Wound dressing in place. Patient does have bleeding from the wound site.. Vascular surgery is following. Otherwise patient is afebrile. Next and no complaints of chest pain or shortness of breath. Tolerating oral diet. No headache or dizziness or lightheadedness. Pain is fairly controlled. Laboratory data showed WBC 11.3 hemoglobin 10.4 and platelets 469, BUN 16.3 and creatinine 2.2 and blood sugar 105. Patient is being continued on Unasyn. Also on IV hydration with normal saline at 75 mL per hour 11/03/2023 Patient is currently resting in the bed. Awake alert and oriented x 3. No complaints of chest pain or shortness of breath. Advised left foot surgical site was bleeding yesterday which is much improved now. Redressing was done by vascular surgery. Awaiting final culture report. Pain is controlled. No complaints of fever or chills. No nausea vomiting abdominal pain or diarrhea. Tolerating oral diet. Laboratory data showed WBC 10.1 hemoglobin 8.5 and platelets 416. Blood sugar is better controlled. 11/04/2023 Severe left diabetic foot sores and cellulitis with evidence of osteomyelitis on bone scan Status post excision and drainage on 11/01/2023. Culture is growing Proteus pending final results Currently covered with Unasyn Patient requires IV antibiotics upon discharge 11/05/23: Patient seen and evaluated bedside, patient does complain of improvement in pain. Continue patient on IV Unasyn, follow-up on basic metabolic panel. CBC and renal profile reviewed creatinine 2.69. Appreciate input from nephrology patient is s/p PICC line placement for hypertension patient is on Coreg PHYSICAL EXAMINATION: GENERAL: The patient is alert and oriented x3, Right arm PICC line in place HEENT: Pupils are round and equally reacting to light. EOMI. No scleral icterus. CARDIOVASCULAR: S1 and S2 present. No murmurs, rubs, or gallops. PULMONARY: Chest is clear to auscultation, no wheezing or crackles. ABDOMEN: Soft, nontender, nondistended, normoactive bowel sounds. No palpable organomegaly. MUSCULOSKELETAL: No joint swelling or deformity. EXTREMITIES: No cyanosis, clubbing, or pedal edema. NEUROLOGICAL: Gross neurological examination did not reveal any focal deficits. SKIN: Left foot bandage Objective - Vital Signs Vital signs: Vital Signs Temp 97.8 F 11/05/23 07:32 Pulse 74 11/05/23 07:32 Resp 17 11/05/23 07:32 BP 121/78 11/05/23 07:32 Pulse Ox 98 11/05/23 07:32 FiO2 Intake & Output 11/04/23 11/05/23 11/05/23 18:59 06:59 18:59 Intake Total 118 Balance 118 Intake: Oral 118 Other: # Voids 3 3 - Labs CBC & Chem 7: 11/05/23 06:33 11/05/23 06:33 Labs: Abnormal Lab Results - Last 24 Hours (Table) 11/04/23 11/04/23 11/05/23 Range/Units 16:42 21:08 05:46 RBC (4.30-5.90) m/uL Hgb (13.0-17.5) gm/dL Hct (39.0-53.0) % Plt Count (150-450) k/uL Sodium (137-145) mmol/L Chloride (98-107) mmol/L BUN (9-20) mg/dL Creatinine (0.66-1.25) mg/dL Glucose (74-99) mg/dL POC Glucose (mg/dL) 182 H 142 H 117 H (70-110) mg/dL 11/05/23 11/05/23 Range/Units 06:33 06:33 RBC 2.97 L (4.30-5.90) m/uL Hgb 8.5 L D (13.0-17.5) gm/dL Hct 25.8 L (39.0-53.0) % Plt Count 459 H (150-450) k/uL Sodium 136 L (137-145) mmol/L Chloride 108 H (98-107) mmol/L BUN 29 H (9-20) mg/dL Creatinine 2.69 H (0.66-1.25) mg/dL Glucose 101 H (74-99) mg/dL POC Glucose (mg/dL) (70-110) mg/dL Microbiology - Last 24 Hours (Table) 10/30/23 17:30 Blood Culture - Final Blood 10/30/23 17:55 Blood Culture - Final Blood 11/01/23 14:56 Anaerobic Culture - Preliminary Foot - Left Assessment and Plan Assessment: Assessment and plan Left diabetic foot infection on the plantar aspect with purulent discharge/abscess. Status post I&D by vascular surgery. Sepsis secondary to above Acute on chronic kidney disease stage III with baseline creatinine 1.2-1.9. Creatinine at admission 2.44 Uncontrolled hypertension Diabetes type 2 [id number] History of HI and cardiac catheterization. No PCI Peripheral vascular disease Bilateral peripheral neuropathy diabetic Hyperlipidemia Noncompliance with medications and follow-up. * In regards to diabetic foot infection continue patient on IV antibiotic receiving Unasyn, followed by surgery and infectious disease * Regards to chronic kidney disease, creatinine has a new baseline seen by nephrology continue to monitor * In regards to hypertension, pressure improved continue Coreg. * In regards to diabetes mellitus continue patient on correctional insulin A1c 6.9 per chart review not on any home medicines, will start on metformin
--- NOTE | 2023-11-05 14:27 | P.PN ---
Subjective Progress Note Date: 11/05/23 Principal diagnosis: Reason for follow-up is left diabetic foot infection/infected callus Patient is a 38-year-old -[place] male with a past medical history significant diabetes mellitus hypertension hyperlipidemia [place] coronary artery disease presenting to the hospital for evaluation of increasing pain swelling and redness to the left foot, patient be diagnosed with the infected callus and extensive diabetic foot infection. On today's evaluation that is Patient is status post Sharp excisional debridement left foot wound. Total measurements 11 x 0.9 x 1 cm to the level of bone completed on 11/01/2023 On today's evaluation that is 11/05/2023, Patient is afebrile ,patient is currently on room air and denies having any shortness of breath, the patient denies any chest pain or cough, the patient denies any nausea vomiting did not have any abdominal pain and no diarrhea, denies pain to the left foot and no further bleeding. White count is 9.6, creatinine is 2.69 Objective - Vital Signs Vital signs: Vital Signs Temp 98.5 F 11/05/23 14:00 Pulse 85 11/05/23 14:00 Resp 17 11/05/23 14:00 BP 149/82 11/05/23 14:00 Pulse Ox 98 11/05/23 14:00 FiO2 Intake & Output 11/04/23 11/05/23 11/05/23 18:59 06:59 18:59 Intake Total 118 Balance 118 Intake: Oral 118 Other: # Voids 3 3 - Exam GENERAL DESCRIPTION: Middle-age male lying in bed in no distress RESPIRATORY SYSTEM: Unlabored breathing , decreased breath sounds at bases HEART: S1 S2 regular rate and rhythm , ABDOMEN: Soft , no tenderness EXTREMITIES: Left foot wound is currently dressed with no drainage on the dressing - Labs CBC & Chem 7: 11/05/23 06:33 11/05/23 06:33 Labs: Abnormal Lab Results - Last 24 Hours (Table) 11/04/23 11/04/23 11/05/23 Range/Units 16:42 21:08 05:46 RBC (4.30-5.90) m/uL Hgb (13.0-17.5) gm/dL Hct (39.0-53.0) % Plt Count (150-450) k/uL Sodium (137-145) mmol/L Chloride (98-107) mmol/L BUN (9-20) mg/dL Creatinine (0.66-1.25) mg/dL Glucose (74-99) mg/dL POC Glucose (mg/dL) 182 H 142 H 117 H (70-110) mg/dL 11/05/23 11/05/23 Range/Units 06:33 06:33 RBC 2.97 L (4.30-5.90) m/uL Hgb 8.5 L D (13.0-17.5) gm/dL Hct 25.8 L (39.0-53.0) % Plt Count 459 H (150-450) k/uL Sodium 136 L (137-145) mmol/L Chloride 108 H (98-107) mmol/L BUN 29 H (9-20) mg/dL Creatinine 2.69 H (0.66-1.25) mg/dL Glucose 101 H (74-99) mg/dL POC Glucose (mg/dL) (70-110) mg/dL Microbiology - Last 24 Hours (Table) 10/30/23 17:30 Blood Culture - Final Blood 10/30/23 17:55 Blood Culture - Final Blood 11/01/23 14:56 Anaerobic Culture - Preliminary Foot - Left Assessment and Plan (1) Diabetic foot infection Current Visit: Yes Status: Acute Code(s): E11.628 - TYPE 2 DIABETES MELLITUS WITH OTHER SKIN COMPLICATIONS; L08.9 - LOCAL INFECTION OF THE SKIN AND SUBCUTANEOUS TISSUE, UNSP SNOMED Code(s): 782332345 (2) Foot abscess, right Current Visit: Yes Status: Acute Code(s): L02.611 - CUTANEOUS ABSCESS OF RIGHT FOOT SNOMED Code(s): 24595861597459401 (3) Infected wound Current Visit: Yes Status: Acute Code(s): T14.8XXA - OTHER INJURY OF UNSPECIFIED BODY REGION, INITIAL ENCOUNTER; L08.9 - LOCAL INFECTION OF THE SKIN AND SUBCUTANEOUS TISSUE, UNSP SNOMED Code(s): 98824362 Plan: 1patient presented to hospital with extensive left diabetic infection in this patient who did have a callus on the plantar aspect likely infected callus and an abscess and will need to cover for the polymicrobial skye usually associated with diabetic foot infection 2 patient is status post sharp excisional debridement left foot wound. Total measurements 11 x 0.9 x 1 cm to the level of bone 3-patient initial cultures with Proteus OR cultures currently growing Pasteurella, patient admitted to having the cat 4patient to continue with Unasyn while inpatient however plan is to finish therapy with Rocephin and Flagyl on discharge Dictation was produced using [employer] dictation software. please excuse any grammatical, word or spelling errors. Time with Patient: Less than 30
[2023-11-05 16:29] LABS: Glucose,Whole Blood 149 mg/dL (70-110)
[2023-11-05] MEDS: metFORMIN 500 MG TAB PO SCH (16:36)
[2023-11-05 20:07] LABS: Glucose,Whole Blood 142 mg/dL (70-110)
[2023-11-06 06:00] LABS: Glucose,Whole Blood 149 mg/dL (70-110)
[2023-11-06 08:20] LABS: HCT 25.6 % (39.6-50.0); HGB 8.6 g/dL (13.0-17.0); MCH 29.4 pg (27.0-32.0); MCHC 33.6 g/dL (32.0-37.0); MCV 87.4 FL (80.0-97.0); Mean Platelet Volume 9.2 FL (9.5-12.2); NRBC Per 100 WBC 0 X 10*3/uL (0.00-0.01); Platelet Count 453 X 10*3/uL (140-440); RBC 2.93 X 10*6/uL (4.40-5.60); RDW 11.7 % (11.5-14.5); WBC 10.22 X 10*3/uL (4.50-10.00)
[2023-11-06 08:33] LABS: BUN/Creat Ratio 11.08 Ratio (12.00-20.00); Blood Urea Nitrogen 28.8 mg/dL (9.0-27.0); Calcium 8.5 mg/dL (8.7-10.3); Carbon Dioxide 24.7 mmol/L (21.6-31.8); Chloride 105 mmol/L (96-109); Glucose 117 mg/dL (70-110); Potassium 4.7 mmol/L (3.5-5.5); Sodium 138 mmol/L (135-145)
--- NOTE | 2023-11-06 10:49 | P.PN ---
Subjective Patient is seen in follow-up for acute kidney injury on chronic kidney disease. Renal function fairly stable. Oral intake is good. No vomiting or diarrhea. Vital signs are stable. General: No acute distress. HEENT: Head exam is unremarkable. LUNGS: No audible rhonchi or wheezes. HEART: Rate and Rhythm are regular. ABDOMEN: Nontender. EXTREMITITES: No edema. No drainage noted. Objective - Vital Signs Vital signs: Vital Signs Temp 98.1 F 11/06/23 07:29 Pulse 85 11/06/23 07:29 Resp 17 11/06/23 07:29 BP 168/85 11/06/23 07:29 Pulse Ox 99 11/06/23 07:29 FiO2 Intake & Output 11/05/23 11/06/23 11/06/23 18:59 06:59 18:59 Output Total 950 Balance -950 Output: Urine 950 Other: # Voids 4 - Labs CBC & Chem 7: 11/06/23 06:19 11/06/23 06:19 Labs: Abnormal Lab Results - Last 24 Hours (Table) 11/05/23 11/05/23 11/06/23 Range/Units 16:28 20:05 05:59 WBC (4.50-10.00) X 10*3/uL RBC (4.40-5.60) X 10*6/uL Hgb (13.0-17.0) g/dL Hct (39.6-50.0) % Plt Count (140-440) X 10*3/uL MPV (9.5-12.2) FL BUN (9.0-27.0) mg/dL Creatinine (0.6-1.5) mg/dL Est GFR (CKD-EPI) (>=60) BUN/Creatinine Ratio (12.00-20.00) Ratio Glucose (70-110) mg/dL POC Glucose (mg/dL) 149 H 142 H 149 H (70-110) mg/dL Calcium (8.7-10.3) mg/dL 11/06/23 11/06/23 Range/Units 06:19 06:19 WBC 10.22 H (4.50-10.00) X 10*3/uL RBC 2.93 L (4.40-5.60) X 10*6/uL Hgb 8.6 L (13.0-17.0) g/dL Hct 25.6 L (39.6-50.0) % Plt Count 453 H (140-440) X 10*3/uL MPV 9.2 L (9.5-12.2) FL BUN 28.8 H (9.0-27.0) mg/dL Creatinine 2.6 H (0.6-1.5) mg/dL Est GFR (CKD-EPI) 31 L (>=60) BUN/Creatinine Ratio 11.08 L (12.00-20.00) Ratio Glucose 117 H (70-110) mg/dL POC Glucose (mg/dL) (70-110) mg/dL Calcium 8.5 L (8.7-10.3) mg/dL Microbiology - Last 24 Hours (Table) 11/01/23 14:56 Anaerobic Culture - Final Foot - Left Assessment and Plan Plan: Assessment: 1. Acute kidney injury secondary to ATN secondary to severe sepsis and NSAIDs. Creatinine peaked at 2.7 this admission and is 2.6 today. No hydronephrosis noted on kidney ultrasound. UA shows 2+ protein with small blood. 2. Chronic kidney disease stage IIIa with creatinine 1.9 in December 2021. Patient does not follow-up with layout man outpatient. Suspect underlying diabetic kidney disease. 3. Right foot infection/wound status post debridement this admission. ID following. On antibiotics. 4. Diabetes mellitus. 5. Hypertension with chronic kidney disease. 6. Anemia of chronic kidney disease. Plan: Encouraged oral intake. Add amlodipine 5 mg twice daily. Hold for systolic blood pressure less than 120. Avoid nephrotoxins. Add Aranesp. Will benefit from rest and admission as well as SGLT2 inhibitor once ALMA and acute infection resolves.
--- NOTE | 2023-11-06 11:04 | P.PN ---
Subjective Progress Note Date: 11/06/23 Patient was seen and examined this morning. He states his left foot pain improved, there is been no further bleeding. They are doing daily dressing changes. He had a PICC line placed. Continued IV antibiotics at this time. He has been afebrile. Final wound culture Pasteurella multocida. Final blood culture with no growth. Objective - Vital Signs Vital signs: Vital Signs Temp 98.1 F 11/06/23 07:29 Pulse 85 11/06/23 07:29 Resp 17 11/06/23 07:29 BP 168/85 11/06/23 07:29 Pulse Ox 99 11/06/23 07:29 FiO2 Intake & Output 11/05/23 11/06/23 11/06/23 18:59 06:59 18:59 Output Total 950 Balance -950 Output: Urine 950 Other: # Voids 4 - Exam General appearance: The patient is alert, oriented, appears in no acute distress. HET: Head is normocephalic and atraumatic. Pupils are equal and reactive. Neck: Supple. Abdomen: Soft, nondistended. Extremities: Left foot with dressing clean dry and intact. Neurological: No focal deficits. - Labs CBC & Chem 7: 11/06/23 06:19 11/06/23 06:19 Labs: Abnormal Lab Results - Last 24 Hours (Table) 11/05/23 11/05/23 11/05/23 Range/Units 06:33 06:33 16:28 RBC 2.97 L (4.30-5.90) m/uL Hgb 8.5 L D (13.0-17.5) gm/dL Hct 25.8 L (39.0-53.0) % Plt Count 459 H (150-450) k/uL Sodium 136 L (137-145) mmol/L Chloride 108 H (98-107) mmol/L BUN 29 H (9-20) mg/dL Creatinine 2.69 H (0.66-1.25) mg/dL Glucose 101 H (74-99) mg/dL POC Glucose (mg/dL) 149 H (70-110) mg/dL 11/05/23 11/06/23 Range/Units 20:05 05:59 RBC (4.30-5.90) m/uL Hgb (13.0-17.5) gm/dL Hct (39.0-53.0) % Plt Count (150-450) k/uL Sodium (137-145) mmol/L Chloride (98-107) mmol/L BUN (9-20) mg/dL Creatinine (0.66-1.25) mg/dL Glucose (74-99) mg/dL POC Glucose (mg/dL) 142 H 149 H (70-110) mg/dL Microbiology - Last 24 Hours (Table) 11/01/23 14:56 Anaerobic Culture - Final Foot - Left 10/30/23 17:30 Blood Culture - Final Blood 10/30/23 17:55 Blood Culture - Final Blood Assessment and Plan Assessment: 1. Infected chronic diabetic left foot wound 2. Diabetes mellitus with peripheral neuropathy 3. History of coronary artery disease status post stenting 4. Hypertension 5. Hyperlipidemia Plan: 1. Non-weightbearing to left foot/lower extremity 2. IV antibiotics per recommendations from infectious disease 3. Daily wet-to-dry dressing change wrapped with Kerlix 4. Bone scan ordered and reviewed 5. Discussed with infectious disease, will hold off on any further surgical intervention at this time and will continue with IV antibiotics and wound care 6. Patient to follow-up with vascular surgery in 2 weeks. 7. Patient to follow-up with wound care after DC Thank you for this consultation. Patient is cleared for discharge from vascular surgery. The impression and plan of care has been dictated as directed. Dr. Black I performed a history and examination of this patient, discussed the same with the dictator. I agree with the dictator's note ,documented as a scribe. Any additional findings or plans will be noted.
--- NOTE | 2023-11-06 11:58 | P.PN ---
Subjective Progress Note Date: 11/06/23 Principal diagnosis: Reason for follow-up is left diabetic foot infection/infected callus Patient is a 38-year-old -[place] male with a past medical history significant diabetes mellitus hypertension hyperlipidemia MO coronary artery disease presenting to the hospital for evaluation of increasing pain swelling and redness to the left foot, patient be diagnosed with the infected callus and extensive diabetic foot infection. On today's evaluation that is Patient is status post Sharp excisional debridement left foot wound. Total measurements 11 x 0.9 x 1 cm to the level of bone completed on 11/01/2023 On today's evaluation that is 11/06/2023,the patient denies any fever or any chills, patient is breathing comfortably on room air, the patient denies chest pain shortness of breath and no significant cough, patient denies abdominal pain, no nausea vomiting or diarrhea. Denies any further bleeding from his left foot and pain is controlled. Patient white count is 10.22, creatinine is 2.6 Objective - Vital Signs Vital signs: Vital Signs Temp 98.1 F 11/06/23 07:29 Pulse 85 11/06/23 08:00 Resp 17 11/06/23 08:00 BP 168/85 11/06/23 07:29 Pulse Ox 99 11/06/23 07:29 FiO2 Intake & Output 11/05/23 11/06/23 11/06/23 18:59 06:59 18:59 Output Total 950 Balance -950 Output: Urine 950 Other: Voiding Method Urinal # Voids 4 - Exam GENERAL DESCRIPTION: Middle-age male lying in bed in no distress RESPIRATORY SYSTEM: Unlabored breathing , decreased breath sounds at bases HEART: S1 S2 regular rate and rhythm , ABDOMEN: Soft , no tenderness EXTREMITIES: Left foot wound base looks clean with no slough tissue no surrounding redness - Labs CBC & Chem 7: 11/06/23 06:19 11/06/23 06:19 Labs: Abnormal Lab Results - Last 24 Hours (Table) 11/05/23 11/05/23 11/06/23 Range/Units 16:28 20:05 05:59 WBC (4.50-10.00) X 10*3/uL RBC (4.40-5.60) X 10*6/uL Hgb (13.0-17.0) g/dL Hct (39.6-50.0) % Plt Count (140-440) X 10*3/uL MPV (9.5-12.2) FL BUN (9.0-27.0) mg/dL Creatinine (0.6-1.5) mg/dL Est GFR (CKD-EPI) (>=60) BUN/Creatinine Ratio (12.00-20.00) Ratio Glucose (70-110) mg/dL POC Glucose (mg/dL) 149 H 142 H 149 H (70-110) mg/dL Calcium (8.7-10.3) mg/dL 11/06/23 11/06/23 Range/Units 06:19 06:19 WBC 10.22 H (4.50-10.00) X 10*3/uL RBC 2.93 L (4.40-5.60) X 10*6/uL Hgb 8.6 L (13.0-17.0) g/dL Hct 25.6 L (39.6-50.0) % Plt Count 453 H (140-440) X 10*3/uL MPV 9.2 L (9.5-12.2) FL BUN 28.8 H (9.0-27.0) mg/dL Creatinine 2.6 H (0.6-1.5) mg/dL Est GFR (CKD-EPI) 31 L (>=60) BUN/Creatinine Ratio 11.08 L (12.00-20.00) Ratio Glucose 117 H (70-110) mg/dL POC Glucose (mg/dL) (70-110) mg/dL Calcium 8.5 L (8.7-10.3) mg/dL Microbiology - Last 24 Hours (Table) 11/01/23 14:56 Anaerobic Culture - Final Foot - Left Assessment and Plan (1) Diabetic foot infection Current Visit: Yes Status: Acute Code(s): E11.628 - TYPE 2 DIABETES MELLITUS WITH OTHER SKIN COMPLICATIONS; L08.9 - LOCAL INFECTION OF THE SKIN AND SUBCUTANEOUS TISSUE, UNSP SNOMED Code(s): 517316739 (2) Foot abscess, right Current Visit: Yes Status: Acute Code(s): L02.611 - CUTANEOUS ABSCESS OF RIGHT FOOT SNOMED Code(s): 02434774438542317 (3) Infected wound Current Visit: Yes Status: Acute Code(s): T14.8XXA - OTHER INJURY OF UNSPECIFIED BODY REGION, INITIAL ENCOUNTER; L08.9 - LOCAL INFECTION OF THE SKIN AND SUBCUTANEOUS TISSUE, UNSP SNOMED Code(s): 42360707 Plan: 1patient presented to hospital with extensive left diabetic infection in this patient who did have a callus on the plantar aspect likely infected callus and an abscess and will need to cover for the polymicrobial skye usually associated with diabetic foot infection 2 patient is status post sharp excisional debridement left foot wound. Total measurements 11 x 0.9 x 1 cm to the level of bone 3-patient initial cultures with Proteus OR cultures currently growing Pasteurella, 4patient antibiotic switched over to Rocephin 2 g daily continue to finish 6- week course of therapy along with oral Flagyl 500 mg every 8 hour and weekly monitoring of CRP and sed rate and close outpatient follow-up local wound care switched over to Aquacel silver dressing and the patient has been advised front offloading shoe, information shared with the patient Dictation was produced using [employer] dictation software. please excuse any grammatical, word or spelling errors. Time with Patient: Less than 30
--- NOTE | 2023-11-06 12:10 | P.DS ---
Providers Date of admission: 10/30/23 18:50 Expected date of discharge: 11/06/23 Attending physician: Ronen Richardson Consults: 10/30/23 18:50 Consult Physician Urgent Consulting Provider: Aspen Russ Consult Reason/Comments: Infected wound foot Do you want consulting provider notified?: Yes 10/31/23 12:08 Consult Physician Routine Consulting Provider: Yadira Mccann Consult Reason/Comments: left foot infected callus, debridemnt and deep cultures Do you want consulting provider notified?: Yes 11/01/23 00:22 Consult Physician Routine Consulting Provider: Carley Vela Consult Reason/Comments: [place] Do you want consulting provider notified?: Yes, Notify in am Primary care physician: [facility] Course: 38-year-old male with past medical history of diabetes type 2, CKD stage III, coronary artery disease with prior cardiac catheterization, hypertension, hyperlipidemia, bilateral peripheral neuropathy diabetes and noncompliance with medications presents to ER with complaints of left foot wound on the plantar surface. Patient has been having infection for a while and started draining with purulent discharge for the past 4 to 5 days. 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 Otherwise patient denies any fever or chills. Denies any injury. No complaints of chest pain or shortness of breath. No nausea vomiting abdominal pain or diarrhea. No cough or sputum production. Denies any recent illnesses. X-ray of the foot showed there is evidence of diffuse soft tissue swelling of the forefoot and midfoot., Extending to involve the hindfoot. No focal soft tissue findings other than atherosclerotic arterial calcifications. EKG showed sinus rhythm. Laboratory showed WBC 14.9 hemoglobin 11.1 and platelets 466 Sodium 135 potassium 4.3 chloride 102 bicarb is 26 BUN 23 and creatinine 2.44 and blood sugar 258. Lactic acid 0.8. Liver enzymes are not elevated. On admission blood pressure was 163/104 pulse 111 respiration 18 and pulse ox 100% on room air. 11/01/2023 Patient is currently resting in bed. Awake alert and oriented 3. No complaints of chest pain or shortness of breath. No cough or sputum production. No headache or dizziness or lightheadedness. Foot pain is slightly improved. Still having purulent discharge. Scheduled for I&D today. Laboratory data showed WBC 9.94, hemoglobin 10.7 and platelets 492, sodium 134 potassium 4.6 chloride 107 bicarb is 24 BUN 19 and creatinine 2.33 and blood sugar 114. A1c is 6.9 and calcium 8.3 11/02/2023 Patient is status post I&D of the left foot. Wound dressing in place. Patient does have bleeding from the wound site.. Vascular surgery is following. Otherwise patient is afebrile. Next and no complaints of chest pain or shortness of breath. Tolerating oral diet. No headache or dizziness or lightheadedness. Pain is fairly controlled. Laboratory data showed WBC 11.3 hemoglobin 10.4 and platelets 469, BUN 16.3 and creatinine 2.2 and blood sugar 105. Patient is being continued on Unasyn. Also on IV hydration with normal saline at 75 mL per hour 11/03/2023 Patient is currently resting in the bed. Awake alert and oriented x 3. No complaints of chest pain or shortness of breath. Advised left foot surgical site was bleeding yesterday which is much improved now. Redressing was done by vascular surgery. Awaiting final culture report. Pain is controlled. No complaints of fever or chills. No nausea vomiting abdominal pain or diarrhea. Tolerating oral diet. Laboratory data showed WBC 10.1 hemoglobin 8.5 and platelets 416. Blood sugar is better controlled. 11/04/2023 Severe left diabetic foot sores and cellulitis with evidence of osteomyelitis on bone scan Status post excision and drainage on 11/01/2023. Culture is growing Proteus pending final results Currently covered with Unasyn Patient requires IV antibiotics upon discharge 11/05/23: Patient seen and evaluated bedside, patient does complain of improvement in pain. Continue patient on IV Unasyn, follow-up on basic metabolic panel. CBC and renal profile reviewed creatinine 2.69. Appreciate input from nephrology patient is s/p PICC line placement for hypertension patient is on Coreg 11/06/23: Patient seen and evaluated bedside, on evaluation patient is awake and alert. Patient to be discharged home with PICC line in place outpatient follow- up with infectious disease prescription for Flagyl and Rocephin provided prescription for Hitchcock provided all questions answered PHYSICAL EXAMINATION: GENERAL: The patient is alert and oriented x3, Right arm PICC line in place HEENT: Pupils are round and equally reacting to light. EOMI. No scleral icterus. CARDIOVASCULAR: S1 and S2 present. No murmurs, rubs, or gallops. PULMONARY: Chest is clear to auscultation, no wheezing or crackles. ABDOMEN: Soft, nontender, nondistended, normoactive bowel sounds. No palpable organomegaly. MUSCULOSKELETAL: No joint swelling or deformity. EXTREMITIES: No cyanosis, clubbing, or pedal edema. NEUROLOGICAL: Gross neurological examination did not reveal any focal deficits. SKIN: Left foot bandage Assessment and plan Left diabetic foot infection on the plantar aspect with purulent discharge/abscess. Status post I&D by vascular surgery. Sepsis secondary to above Acute on chronic kidney disease stage III with baseline creatinine 1.2-1.9. Creatinine at admission 2.44 Uncontrolled hypertension Diabetes type 2 [id number] History of MO and cardiac catheterization. No PCI Peripheral vascular disease Bilateral peripheral neuropathy diabetic Hyperlipidemia Noncompliance with medications and follow-up. * In regards to diabetic foot infection continue patient on IV antibiotic, continue Rocephin and Flagyl, 6 weeks total outpatient follow-up with infectious disease followed by surgery and infectious disease * Regards to chronic kidney disease, creatinine has a new baseline seen by nephrology continue to monitor * In regards to hypertension, pressure improved continue Coreg. * In regards to diabetes mellitus continue patient on correctional insulin A1c 6.9 per chart review not on any home medicines, metformin started outpatient follow-up recommended * In regards to dyslipidemia prescription for Lipitor provided Patient Condition at Discharge: Fair Plan - Discharge Summary Discharge Rx Participant: Yes New Discharge Prescriptions: New Atorvastatin [Lipitor] 40 mg PO HS 30 Days #30 tab HYDROcodone/APAP 5-325MG [Hitchcock 5-325] 1 each PO Q6HR PRN 3 Days #12 tab PRN Reason: Pain amLODIPine [Norvasc] 5 mg PO BID 30 Days #30 tab cefTRIAXone [Rocephin] 2 gm IVPB Q24HR each carvediloL [Coreg] 3.125 mg PO BID-W/MEALS 30 Days #60 tab metroNIDAZOLE [Flagyl] 500 mg PO TID 42 Days #126 tab metFORMIN HCL [Glucophage] 500 mg PO BID-W/MEALS 30 Days #60 tab Discharge Medication List Atorvastatin [Lipitor] 40 mg PO HS 30 Days #30 tab 11/06/23 [Rx] HYDROcodone/APAP 5-325MG [Hitchcock 5-325] 1 each PO Q6HR PRN 3 Days #12 tab 11/06/23 [Rx] amLODIPine [Norvasc] 5 mg PO BID 30 Days #30 tab 11/06/23 [Rx] carvediloL [Coreg] 3.125 mg PO BID-W/MEALS 30 Days #60 tab 11/06/23 [Rx] cefTRIAXone [Rocephin] 2 gm IVPB Q24HR each 11/06/23 [Rx] metFORMIN HCL [Glucophage] 500 mg PO BID-W/MEALS 30 Days #60 tab 11/06/23 [Rx] metroNIDAZOLE [Flagyl] 500 mg PO TID 42 Days #126 tab 11/06/23 [Rx] Follow up Appointment(s)/Referral(s): Yadira Mccann DO [STAFF PHYSICIAN] - 2 Weeks [facility], [NON-STAFF] - 1-2 Days ([facility] will call you to schedule your in home nursing visits. ) [facility],Infusion [NON-STAFF] - 11/07/23 2:00 pm (Go to [facility] for in office IV antibiotic infusions daily. Your first appointment will be on 11/07/23 and [facility] at 2pm. ) Marlen Hatch MD [Primary Care Provider] - 1-2 days [facility] [NON-STAFF] - 1 Week Aspen Russ MD [STAFF PHYSICIAN] - 11/29/23 2:15 pm (And [id number]) Discharge Disposition: HOME SELF-CARE
[2023-11-06] MEDS: DARBEPOETIN ALFA 40 MCG/0.4 ML SYRINGE SQ SCH (13:27)
[2023-11-06 14:09] VITALS: BP 157/98; PULSE 89; RESP 18; TEMP 97.9
[2023-11-06] MEDS ORDERED: amLODIPine 5 MG TAB PO SCH (21:00)
--- NOTE | 2023-11-07 16:37 | IR ---
EXAMINATION TYPE: IR cvc insert >=5 years Intraoperative/procedural fluoroscopic services were provid ed. CLINICAL INDICATION:Male, 38 years old with history of ABX, 42cm, right basillic vein, 0.4min fluoro, 0.856Cvmp5; , [facility] Total fluoroscopy time is 0.4 min. DAP: 0.314 Gycm2 Please see the operative/procedural note for further details.
== END 2023-11-06 15:14 | disposition home or self-care (01) | DRG 710 ==
LOC: EC 16:19 → 4SSUR 18:50
PROVIDERS: ADMIT Hospitalist; ATTEND Hospitalist
PROC: 0QBR0ZZ Excision of Left Toe Phalanx, Open Approach (ICD-10-PCS; principal; 2023-11-01 10:45)
PROC: 02HV33Z Insertion of Infusion Device into Superior Vena Cava, Percutaneous Approach (ICD-10-PCS; 2023-11-03)
DX: A28.0 Pasteurellosis (principal); L02.612 Cutaneous abscess of left foot; D63.1 Anemia in chronic kidney disease; E11.22 Type 2 diabetes mellitus with diabetic chronic kidney disease; E11.42 Type 2 diabetes mellitus with diabetic polyneuropathy; E11.621 Type 2 diabetes mellitus with foot ulcer; E11.628 Type 2 diabetes mellitus with other skin complications; E11.69 Type 2 diabetes mellitus with other specified complication; E78.5 Hyperlipidemia, unspecified; F41.9 Anxiety disorder, unspecified; I12.9 Hypertensive chronic kidney disease with stage 1 through stage 4 chronic kidney disease, or unspecified chronic kidney disease; I25.10 Atherosclerotic heart disease of native coronary artery without angina pectoris; I25.2 Old myocardial infarction; L03.116 Cellulitis of left lower limb; L30.9 Dermatitis, unspecified; L98.495 Non-pressure chronic ulcer of skin of other sites with muscle involvement without evidence of necrosis; M86.9 Osteomyelitis, unspecified; N17.0 Acute kidney failure with tubular necrosis; Z82.49 Family history of ischemic heart disease and other diseases of the circulatory system; Z91.148 Patient's other noncompliance with medication regimen for other reason; Z95.5 Presence of coronary angioplasty implant and graft; Z89.421 Acquired absence of other right toe(s); Z71.3 Dietary counseling and surveillance; Z79.1 Long term (current) use of non-steroidal anti-inflammatories (NSAID); Z28.310 Unvaccinated for COVID-19
CPT/HCPCS: 36415; 36573; 76770; 78315; 80048; 80053; 81001; 83036; 83605; 85025; 85027; 85610; 85730; 87040; 87070; 87075; 87077; 87186; 87205; 96361; 96365; 96366; 96368; 99285